=== PATIENT | male | born 1970 | race Caucasian/White ===

== ENCOUNTER → 2017-12-30 10:47 | Outpatient (CLI) | payer MEDICAID, SELFPAY ==
[2017-12-30 11:10] LABS: Hematocrit 44.5 % (40-54); Hemoglobin 14.2 g/dl (13.0-16.5); Mean Corp Hgb Conc 31.9 g/gl (32-36); Mean Corpuscular Hgb 32.1 pg (27.0-32.0); Mean Corpuscular Volume 100.7 fL (80-94); Mean Platelet Vol. 9.8 fl (6.2-12.0); Platelet Count 201 K/mm3 (150-450); RBC Distribution Width CV 13.9 % (11.6-14.6); RBC Distribution Width SD 51.8 fl (35.1-43.9); Red Blood Count 4.42 M/mm3 (4.6-6.2)
[2017-12-30 11:11] LABS: Scan Indicated on CBC? Y/N NO
[2017-12-30 11:47] LABS: ALB/GLOB Ratio 0.9 RATIO (0.9-2.4); AST(SGOT) 25 U/L (15-37); Alanine Aminotransfer ALT/SGPT 32 U/L (16-61); Albumin, Serum 3.6 g/dL (3.2-5.0); Alkaline Phosphatase 85 U/L (45-117); Anion Gap 4 (5-15); BUN 16 mg/dL (7-18); BUN/Creat Ratio 16.1 RATIO (10-20); Calcium,Total 9.1 mg/dL (8.5-10.1); Chloride 102 mmol/L (98-107); Creatinine, Serum 0.99 mg/dL (0.70-1.30); EST Glomerular Filtration Rate 86 mL/min (>60); Est Glom Filt Rate - Afr Amer 105 mL/min (>60); Globulin 4.1 g/dL (2.2-4.2); Glucose 38 mg/dL (74-106); Potassium 4.2 mmol/L (3.5-5.1); Protein, Total 7.7 g/dL (6.4-8.2); Sodium Level 133 mmol/L (136-145); Thyroid Stim Hormone (TSH) 2.18 uIU/mL (0.358-3.74)
== END ==
PROVIDERS: Visit Provider Psychiatry & Neurology Psychiatry
DX: Z79.899 Other long term (current) drug therapy (principal)
CPT/HCPCS: 36415; 80053; 80178; 84443; 85027

== ENCOUNTER 2018-01-16 13:25 | Emergency (ER) | payer MEDICAID, SELFPAY ==
[2018-01-16 13:26] VITALS: PULSE 95; RESP 18; TEMP 37.2; O2SAT 97; BMI 55.1
--- NOTE | 2018-01-16 13:52 | RAD_ITS ---
STUDY: X-RAY - LEFT ANKLE REASON FOR EXAM: Male, 47 years old. Lateral pain and swelling following a fall. TECHNIQUE: 3 view(s) of the ankle. COMPARISON: None. FINDINGS: Normal visualized distal tibia and fibula. Nondisplaced oblique fracture of the lateral malleolus. Normal tibiotalar articulation and ankle mortise. Normal visualized talus and calcaneus. The visualized subtalar, talonavicular, calcaneocuboid and tarsal articulations are normal. Lateral soft tissue swelling. RAD/Ankle min 3 Views IMPRESSION: Nondisplaced oblique fracture of the lateral malleolus with overlying soft tissue swelling. Electronically Signed: Ignacio Casas MD at 14:21 EST Tel [phone], Service support ,
[2018-01-16] MEDS: oxyCODONE 5 MG Tablet 10 MG PO (14:25)
--- NOTE | 2018-01-16 15:01 | ED.DCSUM_ITS ---
- ER Visit Summary Date of Service: 01/16/18 Chief Complaint: Ankle injury History of Present Illness: The patient is a 47 M who stepped in a hole on the sidewalk today injuring his left ankle. Patient notes pain medially and laterally. Denies any other injuries. Physical Examination: Afebrile vital signs are stable Gen: Well-nourished well-developed Head: Normocephalic atraumatic Eyes: Perrl EOMI ENT: TMs clear no rhinorrhea moist mucous membranes Neck: Supple no lymphadenopathy no JVD nontender CVS: Regular rate rhythm no murmurs normal S1-S2 Respiratory: No distress clear to auscultation bilaterally chest nontender Abdomen: Soft nontender nondistended normal bowel sounds no masses Back: Nontender Extremity: Patient has swelling medially and laterally over the malleoli. There is ecchymosis laterally. No fibular head tenderness. Neurovascular intact distally. Skin: Normal color no rash Neuro: alert orientated ?3 CN II-XII intact normal strength sensation reflexes gait cerebellar Psych: Normal affect normal mood Test Results: X-rays revealed a minimally displaced distal tibial fracture. There was slight disruption of the mortise medially. Emergency Department Course and Treatment: Patient received pain medication he was placed in a Ortho-Glass posterior and stirrup splint. He will be made nonweightbearing. He will follow-up with Dr. Atul Abraham from orthopedics is on no doc orthopedics today. Impression: 1. Distal fibular fracture-left closed 2. Splint by physician This note was generated with [employer] dictation software. It may contain incorrect words, spelling, and punctuation that were not noted in review of the chart prior to signing ED Disposition - Plan for ED Patient: Disposition: Home or Assisted Living Chief Complaint: Lower Extremity Injury Instructions: ED Fx Ankle General Prescriptions: Oxycodone [Oxyir] 5 - 10 mg PO Q6H PRN PRN 4 Days #20 tab PRN Reason: Pain Referrals: Care Physician,No Primary [Primary Care Provider] - Atul Abraham DO [STAFF PHYSICIAN] - (call today for follow up appointment)
[2018-01-16 15:27] VITALS: BP 120/92; PULSE 86; RESP 16; O2SAT 95
--- NOTE | 2018-01-16 15:28 | ED.RN ---
REVIEWED D/C INSTRUCTIONS, FOLLOW UP CARE, AND S/S THAT WOULD WARRANT A RETURN TO THE ED WITH PT. PT VERBALIZED AN UNDERSTANDING AND DENIES FURTHER QUESTIONS FOR THIS RN. PT SKIN P/W/D, RESP EVEN AND UNLABORED, PT A&O X 3, NO DISTRESS NOTED. PT AMBULATED OUT OF ED USING CRUTCHES.
== END 2018-01-16 15:29 | disposition home or self-care (01) ==
PROVIDERS: Emergency Provider Emergency Medicine
DX: S82.65XA Nondisplaced fracture of lateral malleolus of left fibula, initial encounter for closed fracture (principal); F32.9 Major depressive disorder, single episode, unspecified; Z72.0 Tobacco use; Z79.899 Other long term (current) drug therapy; W17.2XXA Fall into hole, initial encounter; Y93.01 Activity, walking, marching and hiking; Y92.480 Sidewalk as the place of occurrence of the external cause; Y99.8 Other external cause status
CPT/HCPCS: 29515; 73610; 99284

== ENCOUNTER 2018-01-23 13:10 | Day surgery (SDC) | payer MEDICAID, SELFPAY ==
--- NOTE | 2018-01-22 16:18 | EKG12_ITS ---
Test Reason : EMORY Blood Pressure : / mmHG Vent. Rate : 082 BPM Atrial Rate : 082 BPM P-R Int : 146 ms QRS Dur : 082 ms QT Int : 370 ms P-R-T Axes : 051 020 014 degrees QTc Int : 432 ms Normal sinus rhythm Nonspecific T wave abnormality Abnormal ECG Confirmed by MO DURANT, MALICK ([id number]), editorial assistant ANOOP LECHUGA ([id number]) on 01/27/2018 2:53:18 PM Referred By: Dayana Plunkett Confirmed By:MALICK HASSAN MD
[2018-01-22 17:19] LABS: Hematocrit 43.4 % (40-54); Hemoglobin 14.3 g/dl (13.0-16.5); Mean Corp Hgb Conc 32.9 g/gl (32-36); Mean Corpuscular Volume 100.2 fL (80-94); Mean Platelet Vol. 10.6 fl (6.2-12.0); Platelet Count 290 K/mm3 (150-450); RBC Distribution Width CV 13.9 % (11.6-14.6); RBC Distribution Width SD 51.2 fl (35.1-43.9); Red Blood Count 4.33 M/mm3 (4.6-6.2); White Blood Count 7.6 K/mm3 (4.4-11.0)
[2018-01-22 17:21] LABS: Scan Indicated on CBC? Y/N NO
[2018-01-23 13:56] VITALS: BP 104/75; PULSE 69; RESP 14; TEMP 37; O2SAT 95; BMI 26.8
--- NOTE | 2018-01-23 14:30 | RAD_ITS ---
STUDY: X-RAY - LEFT ANKLE REASON FOR EXAM: Male, 47 years old. ORIF LEFT ANKLE TECHNIQUE: 2 view(s) of the ankle. COMPARISON: 2. FINDINGS: There is a metal sideplate transfixing the distal fibula. There are cortical screws holding the plate in place. The visualized subtalar, talonavicular, calcaneocuboid and tarsal articulations are normal. There is overlying soft tissue air. Stabilization of the distal fibular fracture. The soft tissue structures are unremarkable. RAD/Ankle min 3 Views IMPRESSION: Successful left ankle ORIF. Electronically Signed: Pedro Harris MD at 16:52 EST , Service support ,
[2018-01-23] MEDS: Cefazolin 2 GM in 0.9% Normal Saline 100 ML IV (15:15)
--- NOTE | 2018-01-23 16:05 | PCM.IMDPSTOP ---
Immediate Post-Op Note Date of Procedure: 01/23/18 Primary Surgeon/Physician: Dayana Plunkett, sales person: none Post-Operative Diagnosis: Fibular fracture, left Surgery/Procedure Performed:: ORIF left ankle fracture Description of Surgical Findings:: Consistent with diagnosis Estimated Blood Loss: <10cc Specimen's removed: none Type of Anesthesia:: General
--- NOTE | 2018-01-23 16:08 | OP.PN_ITS ---
Immediate Post-Op Note Date of Procedure: 01/23/18 Primary Surgeon/Physician: Dayana Plunkett, aviation technician aircraft: none Post-Operative Diagnosis: Fibular fracture, left Surgery/Procedure Performed:: ORIF left ankle fracture Description of Surgical Findings:: Consistent with diagnosis Estimated Blood Loss: <10cc Specimen's removed: none Type of Anesthesia:: General
[2018-01-23 16:15] VITALS: BP 104/75; BP 125/99; PULSE 81; RESP 16; TEMP 36.2; O2SAT 96
[2018-01-23 16:30] VITALS: BP 104/75; BP 96/62; PULSE 66; RESP 16; O2SAT 95
[2018-01-23 16:45] VITALS: BP 100/54; BP 104/75; PULSE 88; RESP 18; TEMP 36.2; O2SAT 93
[2018-01-23 17:38] VITALS: BP 104/75
== END 2018-01-23 17:53 | disposition home or self-care (01) ==
LOC: SDC 13:16 → AC 13:16
PROVIDERS: Visit Provider Podiatrist Foot & Ankle Surgery
PROC: (CPT 27792; principal; 2018-01-23 14:10)
DX: S82.832A Other fracture of upper and lower end of left fibula, initial encounter for closed fracture (principal); K50.90 Crohn's disease, unspecified, without complications; G47.30 Sleep apnea, unspecified; K21.9 Gastro-esophageal reflux disease without esophagitis; F32.9 Major depressive disorder, single episode, unspecified; F41.9 Anxiety disorder, unspecified; F17.210 Nicotine dependence, cigarettes, uncomplicated; Z79.891 Long term (current) use of opiate analgesic; Z79.899 Other long term (current) drug therapy; W17.2XXA Fall into hole, initial encounter; Y93.01 Activity, walking, marching and hiking; Y92.480 Sidewalk as the place of occurrence of the external cause; Y99.8 Other external cause status
CPT/HCPCS: 27792; 36415; 73610; 76000; 85027; 93005; J3010; J7120; J2405

== ENCOUNTER 2018-11-09 21:34 | Emergency (ER) | payer MEDICAID, SELFPAY ==
[2018-11-09 21:37] VITALS: BP 123/74; PULSE 96; RESP 18; TEMP 36.6; O2SAT 98; BMI 25.6
[2018-11-09] MEDS: DiphenhydrAMINE 50 MG/ML Syringe 25 MG IV (22:29)
[2018-11-09] MEDS: 0.9% Normal Saline 1,000 ML 999 ML IV (22:29)
[2018-11-09] MEDS: Metoclopramide 10 MG/2 ML Vial IV (22:29)
[2018-11-09] MEDS: Ketorolac 30 MG/ML Syringe IV (22:29)
--- NOTE | 2018-11-09 22:45 | RAD_ITS ---
STUDY: X-RAY - LEFT ANKLE REASON FOR EXAM: Male, 48 years old. Unable to bear weight. Previous surgery. TECHNIQUE: 3 view(s) of the ankle. COMPARISON: 01/23/2018. FINDINGS: Compression plate and screws across the distal fibula, with no evidence for complication, and evidence for a healed previous fracture. No definite acute fracture or dislocation. Normal ankle mortise. RAD/Ankle min 3 Views IMPRESSION: No acute fracture/dislocation. Electronically Signed: Rod Younger MD at 23:04 EST , Service support ,
--- NOTE | 2018-11-09 23:04 | ED.VISSUMM ---
- ER Visit Summary Date of Service: 11/09/18 Chief Complaint: Headache and left ankle pain History of Present Illness: The patient is a 48 M with a migraine for the past 2 days. Has been taking aspirin without improvement. He does report light sensitivity. He denies injury patient does have a history of similar migraines. He is also complaining of left ankle pain. He had surgery in January for a fibular fracture. His ankle went out on him a couple days ago and now he has increased pain. Physical Examination: Vital signs unremarkable. Patient sitting upright in bed no acute distress. Head neck examination is unremarkable. Heart is regular rate and rhythm. Lung sounds are clear. Abdomen is soft nontender. Lower extremity examination reveals a healed incision on the lateral portion of the left ankle. He does have lateral edema and tenderness. Strong distal pulses are noted. Neuro exam reveals no focal deficits. Test Results: Left ankle x-rays reveal no acute fracture. Hardware is intact. Emergency Department Course and Treatment: Patient is given Toradol, Reglan, Benadryl, and IV fluids. On repeat evaluation patient is resting comfortable he. Headache is improving. He will be given an Aircast stirrup splint for his ankle. Treatment Plan: [] Disposition: Discharge Impression: 1. Migraine, improved 2. Left ankle sprain This note was generated with [employer] dictation software. It may contain incorrect words, spelling, and punctuation that were not noted in review of the chart prior to signing ED Disposition - Plan for ED Patient: Chief Complaint: Headache Referrals: Care Physician,No Primary [Primary Care Provider] -
--- NOTE | 2018-11-09 23:20 | ED.DEP ---
ED Disposition - Plan for ED Patient: Disposition: Home or Assisted Living Chief Complaint: Headache Instructions: ED Headache Migraine, ED Sprain Ankle W X Ray Referrals: Laurie Ribeiro DPM [STAFF PHYSICIAN] - As Needed
[2018-11-09 23:34] VITALS: BP 141/74; PULSE 89; RESP 18; O2SAT 98
--- NOTE | 2018-11-09 23:34 | ED.RN ---
THIS NURSE REVIEWED D/C INSTRUCTIONS WITH PT. PT VERBALIZED UNDERSTANDING OF INSTRUCTIONS. IV D/C. IV CATHETER INTACT. PT TOLERATED WELL. PT DENIES FURTHER NEEDS OR QUESTIONS AT THIS TIME.
--- OUTSIDE RECORDS SUMMARY | 2019-02-11 10:36 | XMS RPT_ITS ---
:1970 Author Organization OHIP Care Team Providers Name Role Phone Primay Care Physicia, No Primary Care Unavailable Alpa Mohr Attending Unavailable John, Aleyda Attending Unavailable Lopez, Aleyda Referring Unavailable Primay Care Physicia, No Primary Care Unavailable Primay Care Physicia, No Primary Care Unavailable Aleksandar Saba Attending Unavailable Cat, Dayana Attending Unavailable Cat, Dayana Referring Unavailable Primay Care Physicia, No Primary Care Unavailable Raymundo, Tim Attending Unavailable Kiarra, Dayana Referring Unavailable Melany Chavarria Attending Unavailable Melany Chavarria Referring Unavailable Primay Care Physicia, No Primary Care Unavailable PROBLEMS PROBLEMS DATE TYPE CONDITION / CODE ATTENDING STATUS SOURCE 02/20/2018 Unknown R94.31 - Abnormal Raymundo, [place] [facility] electrocardiogram Community [ECG] [EKG] / Hospital R94.31(ICD-10) Repository 01/16/2018 Unknown S82.899A - Other Aleksandar Saba Active [facility] fracture of Community unspecified lower leg, Hospital initial encounter for Repository closed fracture / S82.899A(ICD-10) PROCEDURES PROCEDURES No Procedure Records FoundRESULTS RESULTS EMERGENCY DEPARTMENT Observed: 11/10/2018 Status: F Source: [place] SUMMARY 12:31 AM [facility] REPOSITORY [facility] Medical Records Department [address] [place] [address] Emergency Department Summary 11/09/18 2304 MR#: [id number] Acct: [id number] Name: RUFINO SALAS Rep #: [id number] : 1970 48 From: Alpa Mohr MD PCP: Mamta Physician, No Primary Status: DEP ER - ER Visit Summary Date of Service: 11/09/18 Chief Complaint: Headache and left ankle pain History of Present Illness: The patient is a 48 M with a migraine for the past 2 days. Has been taking aspirin without improvement. He does report light sensitivity. He denies injury patient does have a history of similar migraines. He is also complaining of left ankle pain. He had surgery in January for a fibular fracture. His ankle went out on him a couple days ago and now he has increased pain. Physical Examination: Vital signs unremarkable. Patient sitting upright in bed no acute distress. Head neck examination is unremarkable. Heart is regular rate and rhythm. Lung sounds are clear. Abdomen is soft nontender. Lower extremity examination reveals a healed incision on the lateral portion of the left ankle. He does have lateral edema and tenderness. Strong distal pulses are noted. Neuro exam reveals no focal deficits. Test Results: Left ankle x-rays reveal no acute fracture. Hardware is intact. Emergency Department Course and Treatment: Patient is given Toradol, Reglan, Benadryl, and IV fluids. On repeat evaluation patient is resting comfortable he. Headache is improving. He will be given an Aircast stirrup splint for his ankle. Treatment Plan: [] Disposition: Discharge Impression: 1. Migraine, improved 2. Left ankle sprain This note was generated with [employer]ation software. It may contain incorrect words, spelling, and punctuation that were not noted in review of the chart prior to signing ED Disposition - Plan for ED Patient: Chief Complaint: Headache Referrals: Care Physician,No Primary [Primary Care Provider] - What to do if you have Problems For any increased pain, shortness of breath, bleeding, nausea or vomiting, chest pain, or any unexpected problems, contact your Primary Care Provider. Call [facility] ([phone]) or report to the closest Emergency Room. Call 911 if necessary. 11/10/18 0031 <Electronically signed by Alpa Mohr MD> Date Alpa Mohr MD Cosigner Signature (If Indicated): Date CC: No Primary Care Physician DISCHARGE INSTRUCTION Observed: 11/09/2018 Status: F Source: [place] 11:22 PM [facility] RE[facility] Medical Records Department [address] [place] [address] Discharge Instruction 11/09/182319 MR#: [id number] Acct: [id number] Name: RUFINO SALAS Rep #: [id number] : 1970 48 From: Alpa Mohr MD PCP: Care Physician, No Primary Status: REG ER ED Disposition - Plan for ED Patient: Disposition: Home or Assisted Living Chief Complaint: Headache Instructions: ED Headache Migraine, ED Sprain Ankle W X Ray Referrals: Laurie Ribeiro DPM [STAFF PHYSICIAN] - As Needed What to do if you have Problems For any increased pain, shortness of breath, bleeding, nausea or vomiting, chest pain, or any unexpected problems, contact your Primary Care Provider. Call [facility] ([phone]) or report to the closest Emergency Room. Call 911 if necessary. 11/09/182321 <Electronically signed by Alpa Mohr MD> Date Alpa Mohr MD Cosigner Signature (If Indicated): Date CC: No Primary Care Physician ANKLE MIN 3 VIEWS Observed: 11/09/2018 Status: F Source: [place] 9:53 PM [facility] RE[facility] Imaging Services [address] [place] [address] Ankle min 3 Views MR#: [id number] Acct: [id number] Name: RUFINO SALAS Rep #: [id number] : 1970 M 48 From: Rod Younger MD PCP: Care Physician, No Primary Status: REG ER Study: Ankle min 3 Views Date of Exam: 11/09/18 Exam# [id number] Ordering Dr: Alpa Mohr MD STUDY: X-RAY - LEFT ANKLE REASON FOR EXAM: Male, 48 years old. Unable to bear weight. Previous surgery. TECHNIQUE: 3 view(s) of the ankle. COMPARISON: 01/23/2018. FINDINGS: Compression plate and screws across the distal fibula, with no evidence for complication, and evidence for a healed previous fracture. No definite acute fracture or dislocation. Normal ankle mortise. RAD/Ankle min 3 Views IMPRESSION: No acute fracture/dislocation. Electronically Signed: Rod Younger MD at 23:04 EST , Service support , CC: No Primary Care Physician; Alpa Mohr MD Law Firm Receptionist: Signed LITHIUM Collected: 03/09/2018 Status: F Source: [place] 1:40 PM [facility] REPOSITORY Order Comment: Date of Last Dose: 03/09/18 Time of Last Dose: 0000 TYPE CODE TESTS RESULT OUT OF RANGE REFERENCE UNITS LAB L501.9060 0.60-1.20 mmol/L Low LI 0.30 Performed By: #### L501.9060 #### [facility] [address] [place], [address] 12 LEAD ELECTROCARDIOGRAM Observed: 01/27/2018 Status: F Source: [place] 2:53 PM [facility] REPOSITORY [facility] Cardiovascular Services [address] [place] [address] 12 Lead EKG 01/22/18 1625 MR#: [id number] Acct: [id number] Name: RUFINO SALAS Rep #: [id number] : 1970 47 From: Tim Fonseca MD Attending Dr: Dayana Cat DPM Status: DEP SDC Ordering Dr: Dayana Cat DPM Date: 01/22/18 Location: [facility] Sex: M C Admitted: Test Reason : CAT Blood Pressure : / mmHG Vent. Rate : 082 BPM Atrial Rate : 082 BPM P-R Int : 146 ms QRS Dur : 082 ms QT Int : 370 ms P-R-T Axes : 051 020 014 degrees QTc Int : 432 ms Normal sinus rhythm Nonspecific T wave abnormality Abnormal ECG Confirmed by TIM FONSECA MD ([id number]), television news video editor ANOOP LECHUGA ([id number]) on 01/27/2018 2:53:18 PM Referred By: Dayana Cat Confirmed By:TIM FONSECA MD 01/27/18 1453 Date Tim Fonseca MD CC: GIORGIO Cat; No Primary Care Physician Signed ANKLE MIN 3 VIEWS Observed: 01/23/2018 Status: F Source: [place] 1:23 AM [facility] REPOSITORY [facility] Imaging Services [address] [place] [address] Ankle min 3 Views MR#: [id number] Acct: [id number] Name: RUFINO SALAS Rep #: [id number] : 1970 M 47 From: Pedro Harris MD PCP: Care Physician, No Primary Status: [facility] Study: Ankle min 3 Views Date of Exam: 01/23/18 Exam# [id number] Ordering Dr: Dayana Cat DPM STUDY: X-RAY - LEFT ANKLE REASON FOR EXAM: Male, 47 years old. ORIF LEFT ANKLE TECHNIQUE: 2 view(s) of the ankle. COMPARISON: 01.16.18 FINDINGS: There is a metal sideplate transfixing the distal fibula. There are cortical screws holding the plate in place. The visualized subtalar, talonavicular, calcaneocuboid and tarsal articulations are normal. There is overlying soft tissue air. Stabilization of the distal fibular fracture. The soft tissue structures are unremarkable. RAD/Ankle min 3 Views IMPRESSION: Successful left ankle ORIF. Electronically Signed: Pedro Harris MD at 16:52 EST , Service support , CC: GIORGIO Cat; No Primary Care Physician Law Firm Receptionist: Signed CBC-COMPLETE BLOOD CNT Collected: 01/22/2018 Status: F Source: [place] NO DIFF 4:09 PM [facility] REPOSITORY TYPE CODE TESTS RESULT OUT OF RANGE REFERENCE UNITS LAB L100.1000 4.4-11.0 K/mm3 Normal WBC 7.6 LAB L100.1200 4.6-6.2 M/mm3 Low RBC 4.33 LAB L100.1300 13.0-16.5 g/dl Normal HGB 14.3 LAB L100.1400 40-54 % Normal HCT 43.4 LAB L100.1500 80-94 fL High MCV 100.2 LAB L100.1600 27.0-32.0 pg High MCH 33.0 LAB L100.1700 32-36 g/gl Normal MCHC 32.9 LAB L100.1810 11.6-14.6 % Normal RDW CV 13.9 LAB L100.1820 35.1-43.9 fl High RDW SD 51.2 LAB L100.1900 150-450 K/mm3 Normal PLT 290 LAB L100.2000 6.2-12.0 fl Normal MPV 10.6 Performed By: #### L100.0500 #### [facility] [address] [place], [address] EMERGENCY DEPARTMENT Observed: 01/18/2018 Status: F Source: [place] SUMMARY 7:59 AM [facility] RE[facility] Medical Records Department [address] [place] [address] Emergency Department Summary 01/16/18 1457 MR#: [id number] Acct: [id number] Name: RUFINO SALAS Rep #: [id number] : 1970 47 From: Aleksandar Saba DO PCP: Care Physician, No Primary Status: DEP ER - ER Visit Summary Date of Service: 01/16/18 Chief Complaint: Ankle injury History of Present Illness: The patient is a 47 M who stepped in a hole on the sidewalk today injuring his left ankle. Patient notes pain medially and laterally. Denies any other injuries. Physical Examination: Afebrile vital signs are stable Gen: Well-nourished well-developed Head: Normocephalic atraumatic Eyes: Perrl EOMI ENT: TMs clear no rhinorrhea moist mucous membranes Neck: Supple no lymphadenopathy no JVD nontender CVS: Regular rate rhythm no murmurs normal S1-S2 Respiratory: No distress clear to auscultation bilaterally chest nontender Abdomen: Soft nontender nondistended normal bowel sounds no masses Back: Nontender Extremity: Patient has swelling medially and laterally over the malleoli. There is ecchymosis laterally. No fibular head tenderness. Neurovascular intact distally. Skin: Normal color no rash Neuro: alert orientated 3 CN II-XII intact normal strength sensation reflexes gait cerebellar Psych: Normal affect normal mood Test Results: X-rays revealed a minimally displaced distal tibial fracture. There was slight disruption of the mortise medially. Emergency Department Course and Treatment: Patient received pain medication he was placed in a Ortho-Glass posterior and stirrup splint. He will be made nonweightbearing. He will follow-up with Dr. Atul Abraham from orthopedics is on no doc orthopedics today. Impression: 1. Distal fibular fracture-left closed 2. Splint by physician This note was generated with [employer] dictation software. It may contain incorrect words, spelling, and punctuation that were not noted in review of the chart prior to signing ED Disposition - Plan for ED Patient: Disposition: Home or Assisted Living Chief Complaint: Lower Extremity Injury Instructions: ED Fx Ankle General Prescriptions: Oxycodone [Oxyir] 5 - 10 mg PO Q6H PRN PRN 4 Days #20 tab PRN Reason: Pain Referrals: Care Physician,No Primary [Primary Care Provider] - Atul Abraham DO [STAFF PHYSICIAN] - (call today for follow up appointment) What to do if you have Problems For any increased pain, shortness of breath, bleeding, nausea or vomiting, chest pain, or any unexpected problems, contact your Primary Care Provider. Call [facility] ([phone]) or report to the closest Emergency Room. Call 911 if necessary. 01/18/18 0759 <Electronically signed by Aleksandar Saba DO> Date Aleksandar Saba DO Cosigner Signature (If Indicated): Date CC: No Primary Care Physician ANKLE MIN 3 VIEWS Observed: 01/16/2018 Status: F Source: [place] 1:52 PM [facility] Imaging Services [address] [place] [address] Ankle min 3 Views MR#: [id number] Acct: [id number] Name: RUFINO SALAS Rep #: [id number] : 1970 M 47 From: Ignacio Casas MD PCP: Care Physician, No Primary Status: REG ER Study: Ankle min 3 Views Date of Exam: 01/16/18 Exam# [id number] Ordering Dr: Oscar, Ed P. STUDY: X-RAY - LEFT ANKLE REASON FOR EXAM: Male, 47 years old. Lateral pain and swelling following a fall. TECHNIQUE: 3 view(s) of the ankle. COMPARISON: None. FINDINGS: Normal visualized distal tibia and fibula. Nondisplaced oblique fracture of the lateral malleolus. Normal tibiotalar articulation and ankle mortise. Normal visualized talus and calcaneus. The visualized subtalar, talonavicular, calcaneocuboid and tarsal articulations are normal. Lateral soft tissue swelling. RAD/Ankle min 3 Views IMPRESSION: Nondisplaced oblique fracture of the lateral malleolus with overlying soft tissue swelling. Electronically Signed: Ignacio Casas MD at 14:21 EST Tel [phone], Service support , CC: No Primary Care Physician; ED PHYSICIAN PROVIDER Law Firm Receptionist: Signed CBC-COMPLETE BLOOD CNT Collected: 12/30/2017 Status: F Source: [place] NO DIFF 10:55 AM [facility] REPOSITORY TYPE CODE TESTS RESULT OUT OF RANGE REFERENCE UNITS LAB L100.1000 4.4-11.0 K/mm3 High WBC 14.0 LAB L100.1200 4.6-6.2 M/mm3 Low RBC 4.42 LAB L100.1300 13.0-16.5 g/dl Normal HGB 14.2 LAB L100.1400 40-54 % Normal HCT 44.5 LAB L100.1500 80-94 fL High MCV 100.7 LAB L100.1600 27.0-32.0 pg High MCH 32.1 LAB L100.1700 32-36 g/gl Low MCHC 31.9 LAB L100.1810 11.6-14.6 % Normal RDW CV 13.9 LAB L100.1820 35.1-43.9 fl High RDW SD 51.8 LAB L100.1900 150-450 K/mm3 Normal PLT 201 LAB L100.2000 6.2-12.0 fl Normal MPV 9.8 Performed By: #### L100.0500 #### [facility] [place], [address] COMPREHENSIVE METABOLIC Collected: 12/30/2017 Status: F Source: [place] 10:55 AM [facility] REPOSITORY TYPE CODE TESTS RESULT OUT OF RANGE REFERENCE UNITS LAB L501.0100 74-106 mg/dL Low alert GLU 38 Result Comment: Glucose result less than 50 mg/dL suggests HYPOGLYCEMIA. LAB L501.1000 7-18 mg/dL Normal BUN 16 LAB L501.1100 0.70-1.30 mg/dL Normal CREAT,SERUM 0.99 Result Comment: The validity of the calculated GFR AND GFRAA in patients over 70 years has not been determined. Clinical correlation is essential. LAB L501.1110 >60 mL/min Normal EST GFR 86 Result Comment: Non- GFR Calc LAB L501.1115 >60 mL/min Normal EST GFR - AA 105 Result Comment: GFR Calc LAB L501.1300 10-20 RATIO Normal BUN/CRE 16.1 LAB L501.1500 6.4-8.2 g/dL T Normal PROT 7.7 LAB L501.1800 3.2-5.0 g/dL Normal ALB 3.6 LAB L501.1950 2.2-4.2 g/dL Normal GLOB 4.1 LAB L501.2000 0.9-2.4 RATIO Normal A/G 0.9 LAB L501.2200 8.5-10.1 mg/dL CA Normal 9.1 LAB L501.4100 15-37 U/L Normal AST 25 LAB L501.4305 45-117 U/L Normal ALK P 85 LAB L501.4405 16-61 U/L Normal ALT 32 Result Comment: Please note revised ALT reference range effective 2017. LAB L501.4600 0.20-1.00 mg/dL Normal T BILI 0.40 LAB L501.5300 136-145 mmol/L Low NA 133 LAB L501.5600 3.5-5.1 mmol/L Normal K 4.2 LAB L501.5900 98-107 mmol/L Normal CL 102 LAB L501.6100 21.0-32.0 mmol/L Normal CO2 27.0 LAB L501.6200 5-15 Low GAP 4 Performed By: #### L500.4050, L501.9520 #### [facility] [address] [place], [address] THYROID STIM HORMONE Collected: 12/30/2017 Status: F Source: [place] (TSH) 10:55 AM [facility] REPOSITORY TYPE CODE TESTS RESULT OUT OF RANGE REFERENCE UNITS LAB L501.9520 0.358-3.74 uIU/mL Normal TSH 2.18 Performed By: #### L500.4050, L501.9520 #### [facility] [address] [place], [address] LITHIUM Collected: 12/30/2017 Status: F Source: [place] 10:55 AM [facility] REPOSITORY Order Comment: Date of Last Dose: 12/30/17 Time of Last Dose: 0800 TYPE CODE TESTS RESULT OUT OF RANGE REFERENCE UNITS LAB L501.9060 0.60-1.20 mmol/L High alert LI 2.00 Performed By: #### L501.9060 #### [facility] [address] [facility] [place], [address] ALLERGIES ALLERGIES DATE TYPE / CODE NAME / CODE REACTION SEVERITY SOURCE 11/09/2018 Drug zolpidem NOSE BLEED Unknown [facility] Allergy/416 tartrate/Y63841 Hospital 456620(SNOM 4147(RXNORM) Repository ED CT) 11/09/2018 Drug ibuprofen/F0060 Upset Stomach Unknown [facility] Allergy/416 20841(RXNORM) Hospital 003384(SNOM Repository ED CT) ENCOUNTERS ENCOUNTERS ADMIT/DISCHARGE ACCOUNT ADMITTING ENCOUNTER LOCATION SOURCE NUMBER CLASS 11/09/2018/ [id number] Emergency [place] [address] [place] ing:ED Repository 03/09/2018 [id number] Ambulatory [place] [address] [place] ing:LABSPEC Repository 01/23/2018/ [id number] Ambulatory [place] [facility] [address] [place] ing:SDC Repository 01/22/2018 [id number] Ambulatory BMSBuilding:W [facility] Repository 01/16/2018/ [id number] Emergency [place] [facility] [address] [place] ing:ED Repository 12/30/2017 [id number] Ambulatory [place] [address] [place] ing:LAB Repository PAYERS PAYERS ENCOUNTER GUARANTOR PAYER SUBSCRIBER SOURCE 11/09/2018 Rufino S Primary Rufino De La Cruz [place] [id number] Insurance:MOLINAPolic FacemireDOB: Community [place]: [id number] [id number] Repository [address]Dhu: (330) Date:4953-10-13BV [phone] () [address] [place] [address]RL: 11/09/2018 Secondary NOT GIVENUNK [place] Insurance:SELF PAY [facility] Number: Effective Repository Date:2018-11-09 03/09/2018 Rufino S Primary NOT GIVENUNK [place] [id number] Insurance:SELF PAY [place] Number: Effective Repository [phone]: (330) Date:2018-03-09 [phone] () 01/23/2018 Rufino S Primary Rufino S [place] [id number] Insurance:MOLINAPolic FacemireDOB: Community [place] Number: [id number], [place] [id number] Repository [address]Tko: ([phone]) Date:0332-57-42GW [phone] () [address] [place] [address] 401[address]EM: 01/23/2018 Secondary NOT GIVENUNK [place] Insurance:SELF PAY [facility] Number: Effective Repository Date:2018-01-21 01/22/2018 Rufino S Primary Rufino S [place] [id number] Insurance:MOLINAPolic FacemireDOB: [facility] [place] y Number: [id number], [place] [id number] Repository [address]Ojr: (330) Date:4527-59-69OZ [phone] () [address] [place] [address]SM: 01/22/2018 Secondary NOT GIVENUNK [place] Insurance:SELF PAY [facility] Number: Effective Repository Date:2018-01-22 01/16/2018 Rufino S Primary Rufino Villasenoroster [id number] Insurance:MOLINAPolic FacemireDOB: Community [place] Number: [id number], [place] [id number] Repository [address]Kdg: (330) Date:6125-57-26GM [phone] () [address] [place] [address] 30218XF: 01/16/2018 Secondary NOT GIVENUNK [place] Insurance:SELF PAY [facility] Number: Effective Repository Date:2018-01-16 12/30/2017 Rufino S Primary Rufino De La Cruz [place] [id number] Insurance:MOLINAPolic FacemireDOB: Community [place] Number: [id number], [place] [id number] Repository [address]Kto: Date:7358-93-13CG [phone]~[address] [place] [address] -2 () [phone]: 12/30/2017 Secondary NOT GIVENUNK [place] Insurance:SELF PAY [facility] Number: Effective Repository Date:2017-12-30
== END 2018-11-09 23:35 | disposition home or self-care (01) ==
PROVIDERS: Emergency Provider Emergency Medicine
DX: G43.909 Migraine, unspecified, not intractable, without status migrainosus (principal); S93.402A Sprain of unspecified ligament of left ankle, initial encounter; Z72.0 Tobacco use; Z79.899 Other long term (current) drug therapy; X58.XXXA Exposure to other specified factors, initial encounter; Y93.89 Activity, other specified; Y92.89 Other specified places as the place of occurrence of the external cause; Y99.8 Other external cause status
CPT/HCPCS: 73610; 96361; 96374; 96375; 99284; J7030; A4216

== ENCOUNTER 2019-03-11 15:04 | Emergency (ER) | payer MEDICAID, SELFPAY ==
[2019-03-11 15:05] VITALS: BP 131/89; PULSE 120; RESP 16; TEMP 37.1; O2SAT 97; BMI 23.3
--- NOTE | 2019-03-11 15:13 | ED.RN ---
pt arrives to ed stating i need to speak to the dr. when asked what he was here for he again stated the same. i informed the patient that i was the rn clinician and would need more information to get him the help he required. door to triage room was closed then for privacy. pt was behaving manic. (pacing, irritable, and sweaty) pt was asked about where the wounds came from. he stated that the place he lives may have bed bugs. pt denied using any illegal substances. rn and hro were notified. rajesh abraham rn [id number]
--- NOTE | 2019-03-11 15:25 | ED.VISSUMM ---
- ER Visit Summary Date of Service: 03/11/19 Chief Complaint: Laceration History of Present Illness: The patient is a 48 M with a laceration to his right thumb. This is over the proximal phalanx. Dorsal surface. He cut it on metal just prior to arrival. Last tetanus immunization was about a year ago. No other injuries. The patient does complain of some itching bites to his arms and scalp. He said he itches intensely. He is staying at a new place and has bedbugs. Denies fevers or systemic symptoms. Physical Examination: Patient has multiple excoriations and abrasions over his scalp and upper extremities. He has a 2 cm partial-thickness laceration to the proximal phalanx of his right thumb. Extension and flexion intact. No laxity or deformity. Good range of motion. Neurovascular intact distally. No involvement of the joint. Test Results: None performed Emergency Department Course and Treatment: Patient treated with Benadryl. Digital block performed. Wound was irrigated copiously. No foreign bodies. Closed with simple interrupted sutures. Wound care instructions given. Prescription for Benadryl. Follow-up with primary care for suture removal. Return right away for any complications or signs of infection. Treatment Plan: As above Disposition: Discharge Impression: 1. Laceration to right thumb, simple, 2 cm 2. Bedbugs This note was generated with [employer] dictation software. It may contain incorrect words, spelling, and punctuation that were not noted in review of the chart prior to signing ED Disposition - Plan for ED Patient: Referrals: Care Physician,No Primary [Primary Care Provider] -
--- NOTE | 2019-03-11 15:29 | ED.DEP ---
ED Disposition - Plan for ED Patient: Instructions: ED Laceration All Prescriptions: Diphenhydramine HCl 25 mg PO TID #20 cap Referrals: Xenia Johnson [NON-STAFF] -
[2019-03-11] MEDS: DiphenhydrAMINE 25 MG Capsule PO (15:36)
== END 2019-03-11 15:58 | disposition home or self-care (01) ==
LOC: ED 15:50
PROVIDERS: Emergency Provider Emergency Medicine
DX: S61.011A Laceration without foreign body of right thumb without damage to nail, initial encounter (principal); Z72.0 Tobacco use; W26.8XXA Contact with other sharp object(s), not elsewhere classified, initial encounter; Y93.89 Activity, other specified; Y92.89 Other specified places as the place of occurrence of the external cause; Y99.8 Other external cause status
CPT/HCPCS: 12001; 99283

== ENCOUNTER 2019-03-28 21:46 | Emergency (ER) | payer MEDICAID, SELFPAY ==
[2019-03-28 21:48] VITALS: BP 123/84; PULSE 91; RESP 15; TEMP 36.7; BMI 26.6
[2019-03-28 22:00] VITALS: RESP 16
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
[2019-03-28] MEDS: fentaNYL 100 MCG/2 ML Ampul 50 MCG IV (22:13)
[2019-03-28 23:01] VITALS: BP 128/86; PULSE 73; RESP 16; O2SAT 98
== END 2019-03-28 23:07 | disposition home or self-care (01) ==
PROVIDERS: Emergency Provider Emergency Medicine
DX: S06.0X1A Concussion with loss of consciousness of 30 minutes or less, initial encounter (principal); S40.011A Contusion of right shoulder, initial encounter; F17.200 Nicotine dependence, unspecified, uncomplicated; V18.0XXA Pedal cycle driver injured in noncollision transport accident in nontraffic accident, initial encounter; Y93.55 Activity, bike riding; Y92.89 Other specified places as the place of occurrence of the external cause; Y99.8 Other external cause status
CPT/HCPCS: 70450; 72125; 73030; 96374; 99283

== ENCOUNTER 2019-06-09 20:08 | Emergency (ER) | payer MEDICAID, SELFPAY ==
[2019-06-09 20:09] VITALS: BP 130/92; PULSE 110; RESP 17; TEMP 36; O2SAT 97; BMI 22.7
--- NOTE | 2019-06-09 20:30 | RAD_ITS ---
STUDY: X-RAY - RIGHT WRIST REASON FOR EXAM: Male, 48 years old. Pain TECHNIQUE: 3 view(s) of the wrist were obtained. COMPARISON: None. FINDINGS: There is no evidence of fracture or dislocation. There are no significant degenerative changes. There are no radiodense foreign bodies. RAD/Wrist min 3 Views IMPRESSION: No fracture or dislocation. Electronically Signed: Juan Alberto Arroyo, at 21:18 EDT Tel , Service support ,
--- NOTE | 2019-06-09 20:30 | RAD_ITS ---
STUDY: X-RAY - RIGHT SHOULDER REASON FOR EXAM: Male, 48 years old. Pain TECHNIQUE: 4 view(s) of the shoulder. COMPARISON: X-ray right shoulder March 28, 2019 FINDINGS: There is no evidence of fracture or dislocation. There are no significant degenerative changes. There are no radiodense foreign bodies. There is mild soft tissue swelling over the AC joint. RAD/Shoulder min 2 Views IMPRESSION: No fracture or dislocation. Mild soft tissue swelling over the AC joint. Electronically Signed: Juan Alberto Arroyo, at 21:22 EDT Tel , Service support ,
--- NOTE | 2019-06-09 20:55 | RAD_ITS ---
STUDY: X-RAY - LEFT ANKLE REASON FOR EXAM: Male, 48 years old. Pain TECHNIQUE: 3 view(s) of the ankle. COMPARISON: None. FINDINGS: There is no evidence of fracture or dislocation. Internal fixation of the distal fibula is present. There is no evidence of complication. There are no significant degenerative changes. There are no radiodense foreign bodies. RAD/Ankle min 3 Views IMPRESSION: No fracture or dislocation. Electronically Signed: Juan Alberto Arroyo, at 21:20 EDT Tel , Service support ,
[2019-06-09] MEDS: HYDROcodone Bitartrate/Apap 5/325 Tablet PO (20:56)
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
--- NOTE | 2019-06-09 22:04 | ED.DEP ---
ED Disposition - Plan for ED Patient: Instructions: Treating?Strains and Sprains Referrals: Xenia Johnson [NON-STAFF] -
[2019-06-09 23:01] VITALS: BP 122/62; PULSE 89; RESP 18; O2SAT 98
== END 2019-06-09 23:02 | disposition home or self-care (01) ==
LOC: ED 20:55
PROVIDERS: Emergency Provider Emergency Medicine
DX: S40.011A Contusion of right shoulder, initial encounter (principal); S63.501A Unspecified sprain of right wrist, initial encounter; S93.402A Sprain of unspecified ligament of left ankle, initial encounter; V18.0XXA Pedal cycle driver injured in noncollision transport accident in nontraffic accident, initial encounter; Y93.55 Activity, bike riding; Y92.89 Other specified places as the place of occurrence of the external cause; Y99.8 Other external cause status
CPT/HCPCS: 73030; 73110; 73610; 99284

== ENCOUNTER 2020-11-13 12:06 | Emergency (ER) | payer MEDICAID, SELFPAY ==
[2020-11-13] VITALS (10 sets, daily range): BP systolic 117–137; BP diastolic 83–107; PULSE 71–93; RESP 16–18; TEMP 36.7–36.8; O2SAT 97–100; BMI 22.9
[2020-11-13 12:36] LABS: Absolute Lymphocyte Count 2.69 X10^3/uL (0.83-4.51); Basophil# 0.13 X10^3/uL; Basophil% 1.7 % (0-1); Eosinophil# 0.27 X10^3/uL; Eosinophils% 3.4 % (0-5); Hematocrit 48.1 % (40-54); Hemoglobin 15.3 g/dL (13.0-16.5); Lymphocyte # 2.69 X10^3/ul (4.0); Lymphocyte % 34.2 % (19-41); Mean Corp Hgb Conc 31.8 g/dL (32-36); Mean Corpuscular Hgb 31.2 pg (27.0-32.0); Mean Corpuscular Volume 98.2 fL (80-94); Mean Platelet Vol. 9.7 fl (6.2-12.0); Monocyte# 0.57 X10^3/uL; Monocyte% 7.3 % (0-10); NRBC Flagged by Analyzer 0 % (0-5); Neutrophil # 4.04 X10^3/uL (2.7-7.7); Neutrophil % 51.4 % (47-70); Platelet Count 249 K/mm3 (150-450); RBC Distribution Width CV 14.8 % (11.6-14.6); White Blood Count 7.9 K/mm3 (4.4-11.0)
[2020-11-13 12:58] LABS: ALB/GLOB Ratio 1.1 RATIO (0.9-2.4); AST(SGOT) 18 U/L (15-37); Alanine Aminotransfer ALT/SGPT 30 U/L (16-61); Albumin, Serum 3.9 g/dL (3.2-5.0); Alkaline Phosphatase 90 U/L (45-117); Anion Gap 6 (5-15); BUN 18 mg/dL (7-18); BUN/Creat Ratio 19.2 RATIO (10-20); Calcium,Total 8.9 mg/dL (8.5-10.1); Chloride 103 mmol/L (98-107); Creatinine, Serum 0.94 mg/dL (0.70-1.30); EST Glomerular Filtration Rate 91 mL/min (>60); Est Glom Filt Rate - Afr Amer 111 mL/min (>60); Globulin 3.7 g/dL (2.2-4.2); Glucose 103 mg/dL (74-106); Potassium 3.8 mmol/L (3.5-5.1); Protein, Total 7.6 g/dL (6.4-8.2); Sodium Level 138 mmol/L (136-145)
--- NOTE | 2020-11-13 13:06 | CM.ED ---
SOCIAL WORK Collaboration with Dr. Huff and Crisis. Patient is self-pay from the [employer]. Patient reports suicidal ideation, denies plan or intent. construction ironworker helper, Kelly spoke with patient. Patient reports suicidal ideation and stated wants placement. Patient became agitated and would not discuss safety plan with outpatient follow up. Awaiting medical clearance at this time. Crisis to follow for disposition. Staff updated on the above. Plan: Crisis once medically cleared. Ginna Trevino MSW, POLYMERIZATION SUPERVISOR
[2020-11-13 13:07] LABS: Alcohol, Blood (Medical)-Serum < 3.0 mg/dL
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
[2020-11-13 14:02] LABS: Amphetamine Urine VISTA POSITIVE (<1000 ng/mL); Barbiturate Urine VISTA NEGATIVE (< 200 ng/mL); Benzodiazepine Urine VISTA NEGATIVE (< 200 ng/mL); Cocaine Urine VISTA NEGATIVE (< 300 ng/mL); Ecstacy Urine VISTA NEGATIVE (< 500 ng/mL); Methadone Urine VISTA NEGATIVE (< 300 ng/mL); PCP Urine VISTA NEGATIVE (< 25 ng/mL); THC Urine VISTA POSITIVE (< 50 ng/mL); Vista UDS pH Range 6
--- NOTE | 2020-11-13 14:18 | CM.ED ---
SOCIAL WORK Clinical information faxed to Crisis. Ginna Trevino, ELECTROPHYSIOLOGY TECH, MEDICAL LEADER
--- NOTE | 2020-11-13 15:02 | CM.ED ---
SOCIAL WORK Kelly from Crisis speaking with patient at this time. Ginna Trevino, CLINICAL DOCUMENTATION MANAGER, REGIONAL WILDLIFE AGENT
--- NOTE | 2020-11-13 17:10 | CM.ED ---
SOCIAL WORK Call to Kelly with Crisis for update. Per Maggy Mendoza reviewing case as Crisis to do one time contract due to self-pay status. [facility] needing copy of EKG. EKG faxed at this time. Awaiting acceptance. Ginna Trevino, WATERPROOF MATERIAL FOLDER, HYDROTHERAPIST
--- NOTE | 2020-11-13 17:44 | CM.ED ---
SOCIAL WORK Call from [facility] with Crisis. Patient accepted to [facility] by Dr. Marshall. Nurse to call report to [phone]. Per Kelly, [facility]gy Vazquez requesting patient arrive after 8pm. [facility] attempted to set up transport through [facility] for 8pm car pick up driver. [facility] requested call back around 7:30p to schedule. Staff updated. Plan: Maggy Trevino, MERCHANDISE APPRAISER, STATE WILDLIFE OFFICER
--- NOTE | 2020-11-13 20:42 | CM.ED ---
SOCIAL WORK Attempted to contact Crisis x2 to discuss transport. Messages left. Awaiting call back. Ginna Trevino, PEDIATRIC CNS, BAKER BISCUIT
--- NOTE | 2020-11-13 20:48 | CM.ED ---
SOCIAL WORK Call from [facility] with Crisis. [facility] to arrive within 30 minutes to transport patient to [facility]. Staff michel. Ginna Trevino, HAND UPPER AND BOTTOM LACER, PIG FARM MANAGER
== END 2020-11-13 21:42 ==
LOC: ED 12:49
PROVIDERS: Emergency Provider Emergency Medicine
DX: R45.851 Suicidal ideations (principal); F32.9 Major depressive disorder, single episode, unspecified; Z72.0 Tobacco use
CPT/HCPCS: 80053; 80307; 80320; 85025; 87426; 93005; 99285; G0480

== ENCOUNTER → 2021-05-30 11:04 | Outpatient (CLI) | payer MEDICAID, SELFPAY ==
[2021-05-30 10:48] VITALS: BMI 22.2
[2021-05-30 12:25] LABS: Erythrocyte Sedimentation Rate 11 mm/hr (0-20)
[2021-05-30 12:34] LABS: CRP < 2.90 mg/L (0.0-3.0); Rheumatoid Factor < 10.0 IU/mL (<15)
[2021-05-31 14:25] LABS: ANTINUCLEAR ANTIBODIES DIRECT Negative (Negative)
[2021-06-06 08:09] LABS: Testosterone, % Free 2.75 % (1.50-4.20); Testosterone, Free 10.53 ng/dL (5.00-21.00)
[2021-06-06 15:08] LABS: HLA B27 Negative (.); Testosterone, Total 383 ng/dL (264-916)
== END ==
PROVIDERS: PCP Internal Medicine; Referring Provider Internal Medicine; Visit Provider Internal Medicine
DX: M19.90 Unspecified osteoarthritis, unspecified site (principal)
CPT/HCPCS: 36415; 81374; 84402; 84403; 85652; 86038; 86140; 86225; 86235; 86431

== ENCOUNTER → 2021-08-30 15:33 | Outpatient (CLI) | payer MEDICAID, SELFPAY ==
--- NOTE | 2021-08-30 15:34 | RAD_ITS ---
HISTORY: chronic neck pain. TECHNIQUE: XR Spine Cervical 4 or 5 Views. # of images incl. paperwork: 5. COMPARISON: CT 03/28/2019. FINDINGS: VERTEBRAE: No acute fracture identified. ALIGNMENT: No significant anterior or posterior subluxation.Preservation of the cervical lordosis. INTERVERTEBRAL DISCS: Minimal intervertebral disc space narrowing of C4-5. Mild foraminal narrowing at C4-5 bilaterally. SOFT TISSUES: No prevertebral soft tissue thickening. RAD/Cerv Spine 4 or 5 Views IMPRESSION: No acute fracture or dislocation identified in the cervical spine. Mild degenerative change of C4-5. at 1700 Reported and signed by: Viri Valdez MD Electronically Signed: Viri Valdez MD at 16:59 EDT Tel , Service support ,
--- NOTE | 2021-08-30 15:34 | RAD_ITS ---
INDICATION: chronic back pain EXAMINATION/TECHNIQUE: X-RAY - XR Spine Lumbar 2 or 3 Views COMPARISON: None. FINDINGS: Straightening of the normal alignment of the columns of the lumbar spine is visualized. No evidence of spondylolisthesis is seen. Multilevel degenerative endplate changes are seen, no evidence of compression deformity of the lumbar vertebral bodies. Slightly decreased intervertebral disc height visualized most prominent at L2-L3 and L1-L2. No evidence of lytic or sclerotic bone lesion is seen. Scattered stool visualized in the large bowel, no evidence of soft tissue mass is seen. RAD/Lumbar Spine 2 or 3 Views IMPRESSION: Degenerative changes of the lumbar spine, no acute abnormality is seen. Electronically Signed: Janak Turner MD at 8:01 EDT Tel , Service support ,
== END ==
PROVIDERS: PCP Internal Medicine; Referring Provider Nurse Practitioner Family; Visit Provider Nurse Practitioner Family
DX: M54.12 Radiculopathy, cervical region (principal); G89.29 Other chronic pain; M54.2 Cervicalgia; M54.50 Low back pain, unspecified
CPT/HCPCS: 72050; 72100

== ENCOUNTER 2021-09-12 16:30 | Outpatient (RCR) | payer MEDICAID, SELFPAY ==
[2021-07-03 15:46] VITALS: BMI 22.2
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
--- NOTE | 2021-09-12 16:48 | HP.PTREVAL_ITS ---
Rolo Vazquez, CANVAS CUTTER-C, It has been my pleasure to treat KASSIDY SALAS over the last 5 visits for c- spine Radic, Dorsalgia, cervicalgia, chronic pain. Please see the progress note below for an update on the physical therapy plan of care! Subjective: He reports that he forgets his exercises sometimes. Pt reports that he still has back pain and when standing still he has back pain. Pt goes to see the Dr on Friday or Friday and wants to see what the Dr says. He reports that he wants us to put his chart on hold until he talks to the Dr. He has pain into his R shoulder. Objective/Function: + SLR on the L for pain. LE MMT: B hip flex 4/5, B knee flex 4/5, B knee ext 4/5, B hip abd 4/5, B hip ext 4/5. Pt is able to walk on heels and toes without signs of weakness. Trunk AROM: flex 100%, ext 75%, Rot B 75%, Sb B 75%. UE MMT: B flex 4/5, B abd 4-/5, R IR 4-/5 and L 4/5, B ER 4- /5. R IR increase pain with MMT. Stairs: up and down the stairs recip with no hand rails. Plan Plan: Hold chart per Pt request until after he sees his Dr who has run multiple test for carpal tunnel etc. Balance/Gait/Functional tests - Balance/Special Test Scores Oswestry Neck Score: 37 Goals Goal 1:: I HEP Goal Time Frame: 4-6 Weeks Goal Progress: Goal Met Goal 2:: Decrease pain to 4/10 neck, back, arms and LE's. Goal Time Frame: 4-6 Weeks Goal Progress: Progressing Goal 3:: Increase B UE/LE strength by 1/2 muscle grade (at time of the eval: UE MMT: Flexion 4/5 B, abd 4-/5 B, ER 4/5, Bicep 4-/5 and LE MMT: B hip flex 4/5, B knee ext 4-/5, B knee flex 4-/5, B hip abd 4-/5, Bridge 3/4 normal ROM). Goal Time Frame: 4-6 Weeks Goal Progress: Progressing Goal 4:: Stairs: be able to go up and down the steps recip with 1 hand rail with a smooth gait pattern Goal Time Frame: 4-6 Weeks Goal Progress: Goal Met Anticipated Interventions Patient/Client Instruction: Educate patient on: Condition, Plan of Care For the Purpose of:: To decrease pain, To increase ROM, To improve nutrient delivery to tissue, To improve muscle performance and motor function, To improve ability to perform ADL's, To increase tolerance to activity/condition/position, To improve performance and independence with ADL's, To decrease level of supervision to perform tasks, To improve ability of physical actions for home/community/work/leisure, To improve gait and locomotor functions, To improve health of tissue, To decrease soft tissue restriction, To increase flexibilit y/ROM, To improve endurance, To improve balance, To improve safety with gait Therapeutic Exercise to Include: Strength training, Postural training, Flexibilty training, Gait and locomotor training, Neuromotor development, Passive ROM, Active ROM, Dynamic Lumbar Stabilization, Chema Exercises, Scapular Strength/Stabilization For the Purpose of:: To decrease pain, To increase ROM, To improve nutrient delivery to tissue, To improve muscle performance and motor function, To improve ability to perform ADL's, To increase tolerance to activity/condition/position, To improve performance and independence with ADL's, To decrease level of supervision to perform tasks, To improve ability of physical actions for home/community/work/leisure, To improve gait and locomotor functions, To improve health of tissue, To decrease soft tissue restriction, To increase flexibility/ROM, To improve endurance, To improve safety with gait Functional Training to Include: Gait training For the Purpose of:: To improve gait and locomotor functions Manual Therapy Techniques to Include: Passive ROM For the Purpose of:: To increase flexibility/ROM Please do not hesitate to contact me at [phone] by phone or if you have questions or concerns regarding this new plan of care! Sincerely, FELICIA Rodas
--- NOTE | 2021-12-25 10:43 | HP.PTDCSUM_ITS ---
It has been my pleasure to treat KASSIDY De La Cruz FACEMIRE referred by AIDEN Morgan, with the diagnosis of c-spine Radic, Dorsalgia, cervicalgia, chronic pain for a total of 5 visit(s). Discharge Date: 12/25/21 Please see the following information for a summary of their discharge status. Subjective: He reports that he forgets his exercises sometimes. Pt reports that he still has back pain and when standing still he has back pain. Pt goes to see the Dr on Friday or Friday and wants to see what the Dr says. He reports that he wants us to put his chart on hold until he talks to the Dr. He has pain into his R shoulder. neck pain Pain Intensity (Out of 10): 3 back pain Pain Intensity (Out of 10): 6 % Improvement: 50 Objective/Function: + SLR on the L for pain. LE MMT: B hip flex 4/5, B knee flex 4/5, B knee ext 4/5, B hip abd 4/5, B hip ext 4/5. Pt is able to walk on heels and toes without signs of weakness. Trunk AROM: flex 100%, ext 75%, Rot B 75%, Sb B 75%. UE MMT: B flex 4/5, B abd 4-/5, R IR 4-/5 and L 4/5, B ER 4- /5. R IR increase pain with MMT. Stairs: up and down the stairs recip with no hand rails. Goal 1:: I HEP Goal Progress: Goal Met Goal 2:: Decrease pain to 4/10 neck, back, arms and LE's. Goal Progress: Progressing Goal 3:: Increase B UE/LE strength by 1/2 muscle grade (at time of the eval: UE MMT: Flexion 4/5 B, abd 4-/5 B, ER 4/5, Bicep 4-/5 and LE MMT: B hip flex 4/5, B knee ext 4-/5, B knee flex 4-/5, B hip abd 4-/5, Bridge 3/4 normal ROM). Goal Progress: Progressing Goal 4:: Stairs: be able to go up and down the steps recip with 1 hand rail with a smooth gait pattern Goal Progress: Goal Met Plan: Hold chart per Pt request until after he sees his Dr who has run multiple test for carpal tunnel etc. Discharge Comments: DC PT as pt did not call in after appt. If there are questions or concerns regarding this patient's physical therapy, please feel free to call me at [phone]. Thank you for the referral of this patient. Sincerely, Silvina Deleon, MPT Balance/Gait/Functional tests - Balance/Special Test Scores Oswestry Neck Score: 37
== END 2021-09-12 19:00 | disposition home or self-care (01) ==
LOC: PT 16:30
PROVIDERS: PCP Internal Medicine; Referring Provider Nurse Practitioner Family; Visit Provider Nurse Practitioner Family
DX: M54.12 Radiculopathy, cervical region (principal); G89.29 Other chronic pain
CPT/HCPCS: 97110; 97161; 97530

== ENCOUNTER → 2021-09-26 14:25 | Outpatient (CLI) | payer MEDICAID, SELFPAY ==
[2021-05-30 10:48] VITALS: BMI 22.2
--- NOTE | 2021-09-26 16:03 | NEURO_ITS ---
NCS and/or EMG Patient Report Ordering Doctor: Roger Kirk DATE OF SERVICE: 09/26/21 Rufino presents for electrodiagnostic testing of the upper limbs. Reports 3- year history of numbness and tingling in both hands and reports weakness in the hands. Electrodiagnostic findings: Median motor nerve demonstrates normal distal latency, amplitude and conduction velocity bilaterally. Normal ulnar motor response bilaterally. Normal median ulnar F waves. Since responses are within normal limits. On needle EMG, all muscles tested in the upper limbs show no evidence of denervation with normal motor unit action potentials. Electrodiagnostic impression: This is a normal electrodiagnostic study of the upper limbs. There is no electrodiagnostic evidence for peripheral neuropathy, including cubital tunnel or carpal tunnel syndrome. There is no electrodiagnostic evidence for cervical radiculopathy.
== END ==
PROVIDERS: PCP Internal Medicine; Referring Provider Internal Medicine; Visit Provider Internal Medicine
DX: G56.03 Carpal tunnel syndrome, bilateral upper limbs (principal)
CPT/HCPCS: 95886; 95913

== ENCOUNTER → 2021-11-20 11:46 | Outpatient (CLI) | payer MEDICAID, SELFPAY ==
[2021-11-20 13:16] LABS: Anion Gap 7 (5-15); BUN 20 mg/dL (7-18); BUN/Creat Ratio 18.2 RATIO (10-20); Calcium,Total 9.1 mg/dL (8.5-10.1); Chloride 105 mmol/L (98-107); EST Glomerular Filtration Rate 76 mL/min (>60); Est Glom Filt Rate - Afr Amer 92 mL/min (>60); Glucose 151 mg/dL (74-106); Sodium Level 139 mmol/L (136-145)
== END ==
PROVIDERS: PCP Internal Medicine; Visit Provider Nurse Practitioner Family
DX: I10 Essential (primary) hypertension (principal)
CPT/HCPCS: 80048

== ENCOUNTER 2021-11-30 08:26 | Outpatient (CLI) | payer MEDICAID, SELFPAY | END 2021-11-30 23:59 | disposition short-term general hospital (02) | LOC: LABSPEC 08:27 | PROVIDERS: PCP Internal Medicine; Referring Provider Internal Medicine; Visit Provider Internal Medicine | DX: J06.9 Acute upper respiratory infection, unspecified (principal); R09.81 Nasal congestion | CPT/HCPCS: 87635; U0003; U0005 ==

== ENCOUNTER 2022-01-16 16:14 | Inpatient (IN) | payer MEDICAID, SELFPAY ==
[2022-01-16 16:14] VITALS: BP 128/89; PULSE 76; RESP 20; TEMP 36.1; O2SAT 98; BMI 28.0
--- NOTE | 2022-01-16 16:27 | CT_ITS ---
INDICATION: upper abd pain EXAMINATION: CT Abdomen And Pelvis W/ Contrast Injection TECHNIQUE: Helically acquired images were obtained of the abdomen and pelvis after IV contrast. A radiation dose optimization technique was used for this scan. IV Contrast dosage and agent: IV 100mL Isovue-300 Oral contrast: None. COMPARISON: None. FINDINGS: Visualized lung bases: Unremarkable Liver: Heterogeneous parenchyma. Gallbladder: Markedly thickened gallbladder wall. 9 mm stone in the neck of the gallbladder. Spleen: Unremarkable Pancreas: Unremarkable Adrenal Glands: Unremarkable Kidneys: Scattered too small to characterize subcentimeter hypodensities bilaterally. Vasculature: Unremarkable GI Tract: Scattered diverticula throughout the colon without evidence of inflammation. Lymphadenopathy: None Peritoneum: Trace free fluid in the pelvis. Bladder: Unremarkable Reproductive organs: Unremarkable Bones/Soft tissues: No suspicious osseous or soft tissue lesions CT/Abdomen/Pelvis W IV Cont ONLY IMPRESSION: Findings suspicious for acute cholecystitis. Heterogeneous liver parenchyma concerning for diffuse liver disease such as hepatitis. Trace free fluid in the pelvis. Electronically Signed: Wero Ferreira MD at 18:01 EST ,
[2022-01-16] MEDS: Ondansetron 4 MG/2 ML Vial IV ×2 (16:51→19:58)
[2022-01-16] MEDS: Morphine 4 MG/ML Syringe IV (16:51)
[2022-01-16] MEDS: 0.9% Normal Saline 1,000 ML 1000 ML IV ×2 (16:52→19:58)
[2022-01-16 17:05] LABS: Absolute Neutrophil Count 3.4 X10^3/uL (2.0-7.7); Basophil# 0.09 X10^3/uL; Basophil% 1.4 % (0-1); Eosinophil# 0.11 X10^3/uL; Eosinophils% 1.8 % (0-5); Hematocrit 43.1 % (40-54); Hemoglobin 14.8 g/dL (13.0-16.5); Lymphocyte % 27.1 % (19-41); Mean Corp Hgb Conc 34.3 g/dL (32-36); Mean Corpuscular Volume 90.2 fL (80-94); Monocyte# 0.73 X10^3/uL; Monocyte% 11.6 % (0-10); NRBC Flagged by Analyzer 0 % (0-5); Neutrophil # 3.36 X10^3/uL (2.7-7.7); Neutrophil % 53.6 % (47-70); Platelet Count 142 K/mm3 (150-450); RBC Distribution Width CV 17.2 % (11.6-14.6); RBC Distribution Width SD 56.9 fl (35.1-43.9); Red Blood Count 4.78 M/mm3 (4.6-6.2); White Blood Count 6.3 K/mm3 (4.4-11.0)
[2022-01-16 17:23] LABS: International Normalized Ratio 1.6; Prothrombin Time (Protime)PT. 17.9 SECONDS (11.7-14.9)
[2022-01-16 17:37] LABS: ALB/GLOB Ratio 0.7 RATIO (0.9-2.4); AST(SGOT) 2636 U/L (15-37); Alanine Aminotransfer ALT/SGPT 3670 U/L (16-61); Albumin, Serum 2.7 g/dL (3.2-5.0); Alkaline Phosphatase 181 U/L (45-117); Anion Gap 3 (5-15); BUN 11 mg/dL (7-18); Calcium,Total 8.8 mg/dL (8.5-10.1); Chloride 105 mmol/L (98-107); EST Glomerular Filtration Rate 76 mL/min (>60); Est Glom Filt Rate - Afr Amer 91 mL/min (>60); Estimated Creatinine Clearance 73.31 ml/min; Globulin 4.1 g/dL (2.2-4.2); Glucose 93 mg/dL (74-106); Lipase 102 U/L (73-393); Potassium 3.9 mmol/L (3.5-5.1); Protein, Total 6.8 g/dL (6.4-8.2); Sodium Level 136 mmol/L (136-145)
[2022-01-16 18:35] LABS: Bacteria 0 SEEN /hpf (None Seen); Mucous, Urine 0 SEEN /hpf (<or=2+); Red Blood Cells-Urine 0 SEEN /hpf (0-5); Squamous Epithelial Cells - UA 0 SEEN /hpf (0-5); White Blood Cells 0 SEEN /hpf (0-5)
[2022-01-16 18:37] LABS: Color, Urine Yellow (Yellow); Glucose, Dipstick Normal (Normal); Ketone-Dipstick Negative (Negative); Leukocyte Esterase-Dipstick Negative /ul (Negative); Nitrite-Dipstick Negative (Negative); Occult Blood-Urine Negative /ul (Negative); Protein-Dipstick 15 mg/dl (Negative); Urine Clarity Clear (Clear); Urine Urobilinogen 1 mg/dl (Normal)
[2022-01-16 18:38] LABS: Urine Bilirubin Dipstick 1 mg/dL (Negative)
--- NOTE | 2022-01-16 20:03 | EX.ED.DYSGE1 ---
HPI History of Present Illness Chief Complaint: Abd Pain Onset/Context/Timing Onset: Days Current Severity: Moderate Maximum Severity: Moderate Associated Symptoms Associated Symptoms: Nausea and vomiting, dark urine Narrative Narrative: Patient presents for upper abdominal pain. This has been going on for several days. He has some nausea and vomiting with this. No change in his bowel movements. No bleeding. He also reports dark urine. He does not have a history of this. No history of liver disease, gallbladder disease, pancreatitis. Denies Tylenol use. He denies IV drug abuse but says that someone who lives with him does. He has not had sexual contact with that individual. He denies any blood transfusions. Denies any history of autoimmune disorders. He does have a history of alcohol abuse. Prior similar symptoms: No Recent Illness/Hospitalization: No PFSH FOR[facility]LY [facility] Medical History Alcohol abuse Anxiety and depression Arthritis Back problem Bilateral carpal tunnel syndrome Cervical radiculopathy Chronic back pain Chronic neck pain Deafness in left ear Erectile dysfunction GERD (gastroesophageal reflux disease) History of psychiatric care History of suicide attempt Hypertension IBS (irritable bowel syndrome) Marijuana abuse Methamphetamine abuse Nasal congestion Neuropathy Tobacco abuse Upper GI bleed URI (upper respiratory infection) Home Medications risperidone 2 mg tablet 2 mg PO QHS #30 tab 05/30/21 [Rx Last Taken Unknown] omeprazole 40 mg capsule,delayed release 40 mg PO DAILY #90 cap 06/18/21 [Rx Last Taken Unknown] divalproex 500 mg tablet,extended release 24 hr 500 mg PO DAILY tab 07/03/21 [History Last Taken Unknown] meloxicam 15 mg tablet 15 mg PO DAILY #30 tab 07/03/21 [Rx Last Taken Unknown] lisinopril 10 mg tablet 10 mg PO QDAY #30 tab 10/31/21 [Rx Last Taken Unknown] nicotine 21mg/24hr-14mg/24hr-7mg/24hr daily transderm patches,sequentl 1 patch TRANSDERMAL QDAY #70 patch 10/31/21 [Rx Last Taken Unknown] sildenafil 100 mg tablet 100 mg PO DAILY PRN #20 tab 01/01/22 [Rx Last Taken Unknown] Allergy/AdvReac Type Severity Reaction Status Date / Time ibuprofen [From Motrin] AdvReac Upset Verified 01/16/22 16:18 Stomach zolpidem tartrate AdvReac NOSE BLEED Verified 01/16/22 16:18 [From Markoien] Social History Smoking Status: Current every day smoker tobacco type: cigarettes alcohol intake: former substance use type: former substance user ROS ROS ED Constitutional Constitutional ED: Denies chills or fever(s) Eyes Eyes: Denies change in vision ENT ENT ED: Denies ear pain Cardiovascular Cardiovascular: Denies chest pain Respiratory/Chest Respiratory/Chest: Denies dyspnea Gastrointestinal Gastrointestinal: Reports abdominal pain, nausea and vomiting; Denies constipation or diarrhea Genitourinary Genitourinary ED: Denies dysuria Musculoskeletal Musculoskeletal: Denies myalgias Integumentary Denies rash Neurologic Neurologic: Denies headache(s) Psychiatric Psychiatric: Denies depression Endocrine Endocrinology: Denies polyuria Allergic/Immunologic Allergic/Immunologic ED: Denies urticaria EXAM Physical Exam Const Vital Signs: 01/16/22 16:14 Temperature 97.0 F L Temperature Source Temporal Pulse Rate 76 Respiratory Rate 20 H Blood Pressure 128/89 H Blood Pressure Mean 102 Pulse Ox 98 Oxygen Delivery Method Room Air Positive well nourished and well developed General Appearance ED: well developed HEENT Negative for trauma Eyes EOMs intact bilaterally General Eye ED: Yes scleral icterus Neck supple Resp normal respiratory effort and clear to auscultation bilaterally Cardio regular rate GI Palpation: tender Back/Spine Negative for no CVA tenderness Neuro oriented x3 Sensorium / Orientation: alert Psych mental status grossly normal Mood & Affect: Negative for depressed, anxious or tearful Skin General Skin Exam: jaundice MDM MDM MDM Narrative Medical decision making narrative: Patient has signs and symptoms of liver disease. His liver enzymes are very elevated indicating hepatitis. CT did show possible cholecystitis. This was reviewed by Dr. Olivares. She did not feel that this was consistent with cholecystitis and that his inflammation was secondary to hepatitis. She did not feel that operative care was indicated. I spoke with the patient again. He is having a lot of nausea and unable to eat or drink. He would like to be admitted for an inpatient care and further evaluation. I advised that we may not have all of the answers during his hospitalization. He voiced understanding. He was treated with fluids and Zofran. I contacted the hospitalist who will admit for further care. Impression #1 acute hepatitis Impression #2 nausea and vomiting Lab Data Attestation: I reviewed the patient's lab results. Labs: Laboratory Results - last 24 hr 01/16/22 01/16/22 01/16/22 16:50 16:50 16:50 WBC 6.3 RBC 4.78 Hgb 14.8 Hct 43.1 MCV 90.2 MCH 31.0 MCHC 34.3 RDW Std Deviation 56.9 H RDW Coeff of Joseph 17.2 H Plt Count 142 L MPV 11.0 Immature Gran % (Auto) 4.500 H Neut % (Auto) 53.6 Lymph % (Auto) 27.1 [place] % (Auto) 11.6 H Eos % (Auto) 1.8 Baso % (Auto) 1.4 H Absolute Neuts (auto) 3.4 Absolute Lymphs (auto) 1.70 Nucleated RBC % 0 PT 17.9 H INR 1.6 Sodium 136 Potassium 3.9 Chloride 105 Carbon Dioxide 28.0 Anion Gap 3 L BUN 11 Creatinine 1.10 Estim Creat Clear Calc 73.31 Est GFR (MDRD) Af Amer 91 Est GFR (MDRD) Non-Af 76 BUN/Creatinine Ratio 10.0 Glucose 93 Calcium 8.8 Total Bilirubin 6.20 H AST 2636 H ALT 3670 H Alkaline Phosphatase 181 H Total Protein 6.8 Albumin 2.7 L Globulin 4.1 Albumin/Globulin Ratio 0.7 L Lipase 102 Urine Color Urine Clarity Urine pH Ur Specific [place] Urine Protein Urine Glucose (UA) Urine Ketones Urine Occult Blood Urine Nitrite Urine Bilirubin Urine Urobilinogen Ur Leukocyte Esterase Urine RBC Urine WBC Ur Squamous Epith Cells Urine Bacteria Urine Mucus 01/16/22 18:30 WBC RBC Hgb Hct MCV MCH MCHC RDW Std Deviation RDW Coeff of Joseph Plt Count MPV Immature Gran % (Auto) Neut % (Auto) Lymph % (Auto) [place] % (Auto) Eos % (Auto) Baso % (Auto) Absolute Neuts (auto) Absolute Lymphs (auto) Nucleated RBC % PT INR Sodium Potassium Chloride Carbon Dioxide Anion Gap BUN Creatinine Estim Creat Clear Calc Est GFR (MDRD) Af Amer Est GFR (MDRD) Non-Af BUN/Creatinine Ratio Glucose Calcium Total Bilirubin AST ALT Alkaline Phosphatase Total Protein Albumin Globulin Albumin/Globulin Ratio Lipase Urine Color Yellow Urine Clarity Clear Urine pH 7.0 Ur Specific [place] 1.010 Urine Protein 15 H Urine Glucose (UA) Normal Urine Ketones Negative Urine Occult Blood Negative Urine Nitrite Negative Urine Bilirubin 1 H Urine Urobilinogen 1 H Ur Leukocyte Esterase Negative Urine RBC 0 SEEN Urine WBC 0 SEEN Ur Squamous Epith Cells 0 SEEN Urine Bacteria 0 SEEN Urine Mucus 0 SEEN Radiography Diagnostic Testing: Clinical Impression(s) from Imaging Studies Abdomen/Pelvis CT 01/16/22 16:27 IMPRESSION: Findings suspicious for acute cholecystitis. Heterogeneous liver parenchyma concerning for diffuse liver disease such as hepatitis. Trace free fluid in the pelvis. Electronically Signed: Wero Ferreira MD at 18:01 EST , Discharge Plan Triage Chief Complaint: Abd Pain ED Provider: Aleksandar Huff Dx/Rx/DC Orders Prescriptions: No Action divalproex 500 mg tablet extended release 24 hr 500 mg PO DAILY RF: 0 meloxicam [Mobic] 15 mg tablet 15 mg PO DAILY Qty: 30 RF: 1 lisinopril 10 mg tablet 10 mg PO QDAY Qty: 30 RF: 11 nicotine 21-14-7 mg/24 hr patch, TD daily, sequential 1 patch transdermal QDAY Qty: 70 RF: 0 risperidone 2 mg tablet 2 mg PO QHS Qty: 30 RF: 1 omeprazole 40 mg capsule,delayed release(DR/EC) 40 mg PO DAILY Qty: 90 RF: 2 sildenafil 100 mg tablet 100 mg PO DAILY PRN (Reason: sexual activity) Qty: 20 RF: 0 Primary Care Provider: Roger Kirk
--- NOTE | 2022-01-16 20:08 | PCM.HP.STD ---
HPI - General General Date of Admission: 01/16/22 HPI Narrative RUFINO SALAS, is a 51 M with a significant history of former tobacco abuse; marijuana abuse; anxiety and depression who presents persistent nausea and vomiting that started about 4 days ago. Associated with his symptoms is abdominal pain. His abdominal pain is located at his upper umbilical region. He reports black stools that he attributes of juice that he drank. He also has some lump in his abdomen that he thinks has increased in size. FORMERLY [facility] Medical History (Updated 01/16/22 @ 21:02 by Teri Rushing) Alcohol abuse Anxiety and depression Arthritis Back problem Bilateral carpal tunnel syndrome Cervical radiculopathy Chronic back pain Chronic neck pain Deafness in left ear Erectile dysfunction GERD (gastroesophageal reflux disease) History of psychiatric care History of suicide attempt Hypertension IBS (irritable bowel syndrome) Marijuana abuse Methamphetamine abuse Migraines Nasal congestion Neuropathy Smoker Substance abuse Tobacco abuse Upper GI bleed URI (upper respiratory infection) Home Medications divalproex 500 mg tablet,extended release 24 hr 1,000 mg PO QHS tab 07/03/21 [History Last Taken Unknown] sildenafil 100 mg tablet 100 mg PO DAILY PRN #20 tab 01/01/22 [Rx Last Taken Unknown] cariprazine [Vraylar] 3 mg PO QHS 01/16/22 [History Last Taken Unknown] lisinopril 10 mg PO QHS 01/16/22 [History Last Taken Unknown] omeprazole 40 mg PO QHS 01/16/22 [History Last Taken Unknown] risperidone 2 mg PO QHS 01/16/22 [History Last Taken Unknown] vortioxetine [Trintellix] 5 mg PO QHS 01/16/22 [History Last Taken Unknown] Allergy/AdvReac Type Severity Reaction Status Date / Time ibuprofen [From Motrin] AdvReac Upset Verified 01/16/22 16:18 Stomach zolpidem tartrate AdvReac NOSE BLEED Verified 01/16/22 16:18 [From Ambien] Family History (Updated 01/16/22 @ 23:[address] Rufino Saunders MD) Other Heart disease Melanoma Social History Smoking Status: Current every day smoker tobacco type: cigarettes alcohol intake: former substance use type: former substance user ROS ROS Narrative Constitutional: Denies fever, chills, fatigue, anorexia and change in weight Eyes: Denies blurry vision, change in eye color, change in vision, discharge from eye(s), double vision, erythema, eye pain, loss of vision or other HEENT: Denies abnormal hearing, dysphagia, ear pain, epistaxis, headache(s), hearing loss, nasal congestion, nasal discharge, post nasal drip, sinus pressure, sore throat or other Cardiovascular: Denies chest pain or palpitations. Denies dyspnea on exertion, orthopnea and paroxysmal nocturnal dyspnea Respiratory/Chest: Denies cough, excessive phlegm production, shortness of breath with exertion and wheezing Gastrointestinal: Complains nausea, vomiting and abdominal pain. Denies coffee ground emesis, constipation, diarrhea, dyspepsia, hematemesis, hematochezia, or other Genitourinary: Denies burning urination, difficulty urinating, dysuria, hematuria, nocturia, urinary frequency, urinary hesitancy, urinary incontinence, urinary urgency or other Musculoskeletal: Denies arthralgias, back pain, joint pain, joint stiffness, joint swelling, myalgias, neck pain or other Neurologic: Denies abnormal gait, abnormal speech, confusion, disequilibrium, dizziness, focal weakness, headache(s), numbness, paresthesias, seizure-like activity, seizures, syncope, tingling, tremor(s) or other Psychiatric: Denies anxiety, depression, homicidal ideation, suicidal ideation or other Endocrinology: Denies change in body appearance, cold intolerance, excessive sweating, heat intolerance, polydipsia, polyuria or other Hematologic/Lymphatic: Denies anemia, easy bleeding, easy bruising, lymphadenopathy or other Integumentary: Denies rashes Allergic/Immunologic: Denies rhinitis, hives, eczema, asthma or other Vital Signs Vital Signs Vital Signs: 01/16/22 16:14 Temperature 97.0 F L Temperature Source Temporal Pulse Rate 76 Respiratory Rate 20 H Blood Pressure 128/89 H Blood Pressure Mean 102 Pulse Ox 98 Oxygen Delivery Method Room Air Weight Weight: 78.744 kg Body Mass Index (BMI) 28.0 Physical Exam Narrative Physical exam: General: Well-nourished, well-developed. Head: Normocephalic, atraumatic, no tenderness Eyes: Sclera icterus . PERRLA, EOMI ENT, no trauma, moist mucous membranes, no rhinorrhea Neck: Nontender, full range of motion, no spinal tenderness, deformities, step-off CVS: Regular rate and rhythm. S1-S2 present. No murmur, gallop or rub. Respiratory : clear to auscultation bilaterally, chest wall nontender, no wheezing Abdomen: Soft, nontender, nondistended, normal bowel sounds, no masses : Deferred Back: Nontender, no CVA tenderness, no midline spinal tenderness, deformities, step-offs Extremities: Nontender full range of motion, no trauma Skin: Normal color, no trauma, abrasions Neuro: Alert, oriented, cranial nerves II through XII grossly intact. Psychiatry: Normal mood. Normal affect. Not depressed. Not anxious. Results Lab / Micro Data Result Diagrams: 01/16/22 16:50 01/16/22 16:50 Labs: Laboratory Results - last 24 hr 01/16/22 16:50: WBC 6.3, RBC 4.78, Hgb 14.8, Hct 43.1, MCV 90.2, MCH 31.0, MCHC 34.3, RDW Std Deviation 56.9 H, RDW Coeff of Joseph 17.2 H, Plt Count 142 L, MPV 11.0, Immature Gran % (Auto) 4.500 H, Neut % (Auto) 53.6, Lymph % (Auto) 27.1, [place] % (Auto) 11.6 H, Eos % (Auto) 1.8, Baso % (Auto) 1.4 H, Absolute Neuts (auto) 3.4, Absolute Lymphs (auto) 1.70, Nucleated RBC % 0 01/16/22 16:50: PT 17.9 H, INR 1.6 01/16/22 16:50: Sodium 136, Potassium 3.9, Chloride 105, Carbon Dioxide 28.0, Anion Gap 3 L, BUN 11, Creatinine 1.10, Estim Creat Clear Calc 73.31, Est GFR (MDRD) Af Amer 91, Est GFR (MDRD) Non-Af 76, BUN/Creatinine Ratio 10.0, Glucose 93, Calcium 8.8, Total Bilirubin 6.20 H, AST 2636 H, ALT 3670 H, Alkaline Phosphatase 181 H, Total Protein 6.8, Albumin 2.7 L, Globulin 4.1, Albumin/Globulin Ratio 0.7 L, Lipase 102 01/16/22 18:30: Urine Color Yellow, Urine Clarity Clear, Urine pH 7.0, Ur Specific [place] 1.010, Urine Protein 15 H, Urine Glucose (UA) Normal, Urine Ketones Negative, Urine Occult Blood Negative, Urine Nitrite Negative, Urine Bilirubin 1 H, Urine Urobilinogen 1 H, Ur Leukocyte Esterase Negative, Urine RBC 0 SEEN, Urine WBC 0 SEEN, Ur Squamous Epith Cells 0 SEEN, Urine Bacteria 0 SEEN, Urine Mucus 0 SEEN Radiology Impression Abdomen/Pelvis CT 01/16/22 16:27 IMPRESSION: Findings suspicious for acute cholecystitis. Heterogeneous liver parenchyma concerning for diffuse liver disease such as hepatitis. Trace free fluid in the pelvis. Electronically Signed: Wero Ferreira MD at 18:01 EST , Assessment & Plan Assessment/Plan (1) Hepatitis: PLAN: Acute hepatitis CT of the abdomen was visualized and independently interpreted. I agree radiology interpretation of gallbladder inflammation and heterogenous liver parenchyma. ED doctor discussed the case with general surgeon who upon review advised that ED physician that patient symptoms may only be from hepatitis. We will check acute hepatitis panel. Will start patient on Zosyn for possible gallbladder infection. We will consult GI. N.p.o. after midnight to obtain ultrasound. IV hydration with normal saline. Pain control with morphine. Antiemetics with IV Zofran Patient is wondering whether symptoms is because of newly started medicine for depression. Of note patient was started on cariprazine (1-2% risk of hepatotoxicity) and vortioxetine a week prior to presentation. Will discontinue these meds. Further will hold off on his Depakote that he takes for depression as it can also cause hepatoxicity. Patient denies any drug use . Hypertension Blood pressure is not within goal Lisinopril continued. Trend blood pressure and adjust blood pressure medications. Marijuana abuse Counselled. Tobacco abuse Counseled Nicotine patch prescribed DVT prophylaxis: SCDs ordered. Charges/Coding Visit Charges Inpatient E&M: 00586 Init Hosp L3
[2022-01-16 20:38] VITALS: BP 123/87; PULSE 16; RESP 72; TEMP 36.7; O2SAT 95
[2022-01-16 20:45] VITALS: BMI 27.2
[2022-01-16 21:15] VITALS: BP 143/92; PULSE 60; RESP 16; TEMP 36.4; O2SAT 100
[2022-01-16] MEDS: 0.9% Normal Saline 1,000 ML 75 ML IV (23:17)
[2022-01-17] VITALS (8 sets, daily range): BP systolic 111–152; BP diastolic 76–88; PULSE 45–67; RESP 16–20; TEMP 36.5–36.8; O2SAT 92–96
[2022-01-17] MEDS: Lisinopril 10 MG Tablet PO ×2 (00:03→21:06)
[2022-01-17] MEDS: Morphine 2 MG/ML Syringe IV ×2 (02:52→10:03)
[2022-01-17] MEDS: Ondansetron 4 MG/2 ML Vial IV (05:53)
--- NOTE | 2022-01-17 05:55 | US_ITS ---
STUDY: ABDOMINAL ULTRASOUND - RIGHT UPPER QUADRANT REASON FOR VISIT: Male, 51 years old Hepatitis -- Ultrasound liver and gallbladder TECHNIQUE: Ultrasound evaluation of the right upper quadrant was performed with real-time and static ortiz-scale imaging. TECHNICAL QUALITY: Adequate. COMPARISON: Comparison is made with prior CT scan the abdomen dated 01/16/2022. FINDINGS: Liver: The liver measures 14.1 cm. There is normal echogenicity of the liver. The bile ducts are within normal limits. There is hepatic color flow. The direction of portal flow is hepatopetal. There is no demonstrated mass lesion. Gallbladder: Normal distended gallbladder. The gallbladder wall is thickened and measures 10 mm. There is a positive sonographic Cormire''s sign. There is pericholecystic fluid. Soft tissue density is seen within the gallbladder lumen. I suspect a gallstone in the neck of the gallbladder. Common Bile Duct (C.B.D.): The common bile duct measures 4.2 mm. Pancreas: Normal size of the head, body and tail of the pancreas. There is increased echogenicity of the pancreas. There is no demonstrated pancreatic mass or cyst. Right Kidney: Normal size of the right kidney. The right kidney measures 11.1 cm x 6.1 cm x 4.7 cm. Normal renal cortex. The right cortex measures 1.4 cm. 2 small right renal cysts are seen. The larger measures 1 cm x 0.9 cm x 0.9 cm. There is no right hydronephrosis. US/Liver IMPRESSION: Markedly thickened gallbladder wall with the soft tissue density within the gallbladder lumen. Small amount of pericholecystic fluid. Electronically Signed: Ignacio Casas MD at 11:08 EST ,
[2022-01-17 06:31] LABS: Hematocrit 39.7 % (40-54); Hemoglobin 13.3 g/dL (13.0-16.5); Mean Corp Hgb Conc 33.5 g/dL (32-36); Mean Corpuscular Hgb 29.8 pg (27.0-32.0); Mean Platelet Vol. 11.9 fl (6.2-12.0); POSITIVE COUNT YES; POSITIVE MORPHOLOGY YES; Platelet Count 128 K/mm3 (150-450); RBC Distribution Width CV 17.4 % (11.6-14.6); RBC Distribution Width SD 55.9 fl (35.1-43.9); Red Blood Count 4.46 M/mm3 (4.6-6.2); White Blood Count 5.9 K/mm3 (4.4-11.0)
--- NOTE | 2022-01-17 06:33 | NURSING ---
pt keeps taking his gown and monitor reappilied 4 times. Tv on for distraction. Iv wrapped with courtney wrap .
[2022-01-17 06:39] LABS: Differential Indicated MANUAL DIFF
[2022-01-17 06:59] LABS: Absolute Neutrophil Count 3.2 X10^3/uL (2.0-7.7)
[2022-01-17 07:00] LABS: Absolute Lymphocyte Count 1.95 X10^3/uL (0.83-4.51); Anisocytosis 1+; Atypical Lymphocyte 2+ %; Eosinophil 3 % (0-5); Lymphocyte 33 % (19-41); Monocyte 6 % (0-10); Myelocyte 3 % (0-0); Neutrophil-Segmented 54 % (47-70); Platelet Estimate SLT DEC (ADEQ); Promyelocyte 1 % (0-0); Red Cell Morphology NORM C+C NORMAL (NORM C&C); Total Cells Counted 100 (MANUAL DIFF)
[2022-01-17 07:14] LABS: ALB/GLOB Ratio 0.6 RATIO (0.9-2.4); AST(SGOT) 2398 U/L (15-37); Alanine Aminotransfer ALT/SGPT 3374 U/L (16-61); Albumin, Serum 2.3 g/dL (3.2-5.0); Alkaline Phosphatase 165 U/L (45-117); Anion Gap 4 (5-15); BUN 7 mg/dL (7-18); Calcium,Total 7.8 mg/dL (8.5-10.1); Chloride 106 mmol/L (98-107); Creatinine, Serum 0.87 mg/dL (0.70-1.30); EST Glomerular Filtration Rate 99 mL/min (>60); Est Glom Filt Rate - Afr Amer 120 mL/min (>60); Estimated Creatinine Clearance 92.69 ml/min; Globulin 3.8 g/dL (2.2-4.2); Glucose 95 mg/dL (74-106); Potassium 3.7 mmol/L (3.5-5.1); Protein, Total 6.1 g/dL (6.4-8.2); Sodium Level 137 mmol/L (136-145)
--- NOTE | 2022-01-17 07:25 | PN.HOSP_ITS ---
Subjective Subjective Patient is a 51-year-old gentleman who presented with nausea, vomiting and abdominal pain. Patient was found to have markedly elevated LFTs. CT of the abdomen obtained demonstrated findings suspicious for acute cholecystitis as well as radiographic evidence of acute hepatitis. Admitted to regular nursing floor for subsequent management Objective Data Objective Data Vital Signs: Vital Signs Temp Pulse Resp BP Pulse Ox 98.2 F 57 L 17 126/88 H 95 01/17/22 03:08 01/17/22 03:08 01/17/22 03:08 01/17/22 03:08 01/17/22 03:08 Oxygen Delivery Method Room Air Weight: 76.9 kg Body Mass Index (BMI) 27.2 Intake & Output: Intake and Output for Last 24 Hours 01/15/22 01/16/22 01/17/22 23:59 23:59 23:59 Intake Total 2340 / 2340 50 / 50 Balance 2340 / 2340 50 / 50 Lab / Micro Data Result Diagrams: 01/17/22 05:45 01/17/22 05:45 Labs: Laboratory Results - last 24 hr 01/16/22 16:50: WBC 6.3, RBC 4.78, Hgb 14.8, Hct 43.1, MCV 90.2, MCH 31.0, MCHC 34.3, RDW Std Deviation 56.9 H, RDW Coeff of Joseph 17.2 H, Plt Count 142 L, MPV 11.0, Immature Gran % (Auto) 4.500 H, Neut % (Auto) 53.6, Lymph % (Auto) 27.1, [place] % (Auto) 11.6 H, Eos % (Auto) 1.8, Baso % (Auto) 1.4 H, Absolute Neuts (auto) 3.4, Absolute Lymphs (auto) 1.70, Nucleated RBC % 0 01/16/22 16:50: PT 17.9 H, INR 1.6 01/16/22 16:50: Sodium 136, Potassium 3.9, Chloride 105, Carbon Dioxide 28.0, Anion Gap 3 L, BUN 11, Creatinine 1.10, Estim Creat Clear Calc 73.31, Est GFR (MDRD) Af Amer 91, Est GFR (MDRD) Non-Af 76, BUN/Creatinine Ratio 10.0, Glucose 93, Calcium 8.8, Total Bilirubin 6.20 H, AST 2636 H, ALT 3670 H, Alkaline Phosphatase 181 H, Total Protein 6.8, Albumin 2.7 L, Globulin 4.1, Albumin/Globulin Ratio 0.7 L, Lipase 102 01/16/22 18:30: Urine Color Yellow, Urine Clarity Clear, Urine pH 7.0, Ur Specific [place] 1.010, Urine Protein 15 H, Urine Glucose (UA) Normal, Urine Ketones Negative, Urine Occult Blood Negative, Urine Nitrite Negative, Urine Bilirubin 1 H, Urine Urobilinogen 1 H, Ur Leukocyte Esterase Negative, Urine RBC 0 SEEN, Urine WBC 0 SEEN, Ur Squamous Epith Cells 0 SEEN, Urine Bacteria 0 SEEN, Urine Mucus 0 SEEN 01/17/22 05:45: WBC 5.9, RBC 4.46 L, Hgb 13.3, Hct 39.7 L, MCV 89.0, MCH 29.8, MCHC 33.5, RDW Std Deviation 55.9 H, RDW Coeff of Joseph 17.4 H, Plt Count 128 L, MPV 11.9, Neut % (Auto) Not Reportable, Absolute Neuts (auto) 3.2, Absolute Lymphs (auto) 1.95, Total Counted 100, Neutrophils % (Manual) 54, Lymphocytes % (Manual) 33, Monocytes % (Manual) 6, Eosinophils % (Manual) 3, Myelocytes % 3 H, Promyelocytes % 1 H, Diff Path Review May foll, Atypical Lymphocytes 2+, Platelet Estimate SLT DEC, RBC Morphology NORM C+C, Anisocytosis 1+ 01/17/22 05:45: Sodium 137, Potassium 3.7, Chloride 106, Carbon Dioxide 27.0, Anion Gap 4 L, BUN 7, Creatinine 0.87, Estim Creat Clear Calc 92.69, Est GFR (MDRD) Af Amer 120, Est GFR (MDRD) Non-Af 99, BUN/Creatinine Ratio 8.0 L, Glucose 95, Calcium 7.8 L, Total Bilirubin 6.00 H, AST 2398 H, ALT 3374 H, Alkaline Phosphatase 165 H, Total Protein 6.1 L, Albumin 2.3 L, Globulin 3.8, Albumin/Globulin Ratio 0.6 L Radiography Diagnostic Testing: Radiology Impression Abdomen/Pelvis CT 01/16/22 16:27 IMPRESSION: Findings suspicious for acute cholecystitis. Heterogeneous liver parenchyma concerning for diffuse liver disease such as hepatitis. Trace free fluid in the pelvis. Electronically Signed: Wero Ferreira MD at 18:01 EST , Physical Exam Narrative GENERAL: cooperative HEENT: Atraumatic; EYES; icteric, Normal Conjunctiva NECK; supple, normal thyroid, RESPIRATORY: Diminished to auscultation CARDIOVASCULAR: Regular S1 S2, GI: soft, normoactive bowel sounds, : No Renal angle tenderness; EXTREMITIES: No edema, no clubbing, MUSCULOSKELETAL: no muscle wasting NEURO: Awake; no lateralizing signs. SKIN: No Rash PSYCH; Flat affect Assessment & Plan Assessment/Plan (1) Hepatitis: PLAN: Patient is a 51-year-old gentleman who presented with nausea, vomiting and abdominal pain. Patient was found to have markedly elevated LFTs. CT of the abdomen obtained demonstrated findings suspicious for acute cholecystitis as well as radiographic evidence of acute hepatitis. Admitted to regular nursing floor for subsequent management 1. Acute hepatitis ?Etiology not clear at this point admitted to regular nursing floor for conservative management as part of his management and acute hepatitis panel drawn consult placed to GI 2. Suspected acute cholecystitis ?Patient started on spectrum antibiotic therapy. Case had apparently been discussed with general surgery from the ED and the opinion was that patient symptoms possibly related to his acute hepatitis 3. Hypertension - Blood pressure controlled, home medications continued with dose adjustment as needed 4. Tobacco dependence - Counseled on cessation, offered nicotine patch for tobacco cravings 5. DVT prophylaxis ?Deemed to be low risk SCDs only at this point Charges/Coding Visit Charges Inpatient E&M: 18078 Subs Hosp L3
[2022-01-17 09:04] LABS: Erythrocyte Sedimentation Rate 8 mm/hr (0-20)
[2022-01-17 09:23] LABS: CPK Total, Creatine Kinase 46 U/L (39-308); CRP 9.09 mg/L (0.0-3.0); Ferritin 7457 ng/mL (26-388); LDH 683 U/L (87-241)
[2022-01-17 09:57] LABS: Lactic Acid 0.6 mmol/L (0.4-1.9)
[2022-01-17] MEDS: 0.9% Saline Lock 10 ML Syringe IV (10:03)
[2022-01-17 10:42] LABS: International Normalized Ratio 1.7
[2022-01-17] MEDS: 0.9% Normal Saline 1,000 ML 75 ML IV ×2 (11:32→21:02)
--- NOTE | 2022-01-17 11:43 | CASEMGMT ---
SAM GABRIEL Assessment: Face to Face with pt for initial transition planning/care coordination assessment. RN HARVEY introduced self and role at [facility], pt voices understanding and consents to assessment. Pt is A/O x4 and answers all questions appropriately at this time. Pt lying in bed asks why this CM is being so nosey. Care providers, pharmacy, and demographics verified/updated. Admitting Dx: acute hepatitis PCP:Yelena Specialists: Pt denies. Preferred Pharmacy: [facility] Prescription Benefit: yes LW/HPOA: Pt denies having a LW/DPOA and denies need for info regarding AD. LNOK: Kavon Case, friend Living Arrangements: Pt lives with friend Kavon in a two story house with 6 steps to enter. Pt reports he is I in ADL's and denies concerns at home. Transportation: Pt uses the bus for transportation. DME/HHC/SNF: Pt has a cane at home but does not use. Pt denies hx of HHC or SNF stays. Pt states he does not drink alcohol, smokes one pack of cigarettes per day and one joint a day. Pt states no concerns with going home at time of dc. Pt states no further concerns/needs. CM to follow. Advised pt to ask CM if any further question/concerns/needs arise, voices understanding. Pt Goal: Home Plan: Home
--- NOTE | 2022-01-17 17:38 | CON.PCM.GI_ITS ---
HPI Consult Data Date of Consult: 01/17/22 HPI Narrative HPI Narrative: RUFINO SALAS, is a 51 M who presentsWith abdominal pain and nausea vomiting over the last several days. Patient admits to using meth amphetamines, cocaine and alcohol prior to coming into the hospital. He has a history of alcohol abuse without cirrhosis. Patient says that he normally does not use cocaine and meth at the same time. He does not know if he is vaccinated for viral hepatitis B. He does not know if he has a history of chronic hepatitis C. He does not know if he has a history of HIV. He has not received any blood transfusions. He has no family history of hepatitis with cirrhosis. He does use marijuana on a daily basis. He does have a previous suicide attempt with a drug overdose. He says he does not try to overdose himself when he use methamphetamines and cocaine at the same time. In the ED he was discovered to have severely elevated liver enzymes and liver function test with a bilirubin of 6.4 AST and ALT above 2000 and INR 1.7. Currently his bilirubin has come down to 6 and his AST and ALT are improving into the thousands.His ultrasound of the liver was consistent with hepatitis, hepatomegaly, gallbladder wall thickening with pericholecystic fluid.His CT scan was also suspicious for acute hepatitis and acute Acalculus cholecystitis. All other 16 review of systems are negative except as per pause mentioned HPI. [facility] Medical History (Updated 01/16/22 @ 21:02 by Teri Rushing) Alcohol abuse Anxiety and depression Arthritis Back problem Bilateral carpal tunnel syndrome Cervical radiculopathy Chronic back pain Chronic neck pain Deafness in left ear Erectile dysfunction GERD (gastroesophageal reflux disease) History of psychiatric care History of suicide attempt Hypertension IBS (irritable bowel syndrome) Marijuana abuse Methamphetamine abuse Migraines Nasal congestion Neuropathy Smoker Substance abuse Tobacco abuse Upper GI bleed URI (upper respiratory infection) Home Medications divalproex 500 mg tablet,extended release 24 hr 1,000 mg PO QHS tab 07/03/21 [History Last Taken Unknown] sildenafil 100 mg tablet 100 mg PO DAILY PRN #20 tab 01/01/22 [Rx Last Taken Unknown] cariprazine [Vraylar] 3 mg PO QHS 01/16/22 [History Last Taken Unknown] lisinopril 10 mg PO QHS 01/16/22 [History Last Taken Unknown] omeprazole 40 mg PO QHS 01/16/22 [History Last Taken Unknown] risperidone 2 mg PO QHS 01/16/22 [History Last Taken Unknown] vortioxetine [Trintellix] 5 mg PO QHS 01/16/22 [History Last Taken Unknown] Allergy/AdvReac Type Severity Reaction Status Date / Time ibuprofen [From Motrin] AdvReac Upset Verified 01/16/22 16:18 Stomach zolpidem tartrate AdvReac NOSE BLEED Verified 01/16/22 16:18 [From Ambien] Family History (Updated 01/16/22 @ 23:[address] Rufino Saunders MD) Other Heart disease Melanoma Social History Smoking Status: Current every day smoker tobacco type: cigarettes alcohol intake: former substance use type: former substance user ROS Gastrointestinal Gastrointestinal: Reports abdominal pain, bloating and nausea Physical Exam Const alert General Appearance: cooperative Orientation / Consciousness: oriented to person HEENT hearing grossly normal bilaterally Head and Scalp: normal to inspection Face and Sinus: face symmetric Nose: external nose normal Mouth: oral and palatal mucosa normal Eyes conjunctivae normal General Eye: normal appearance of both eyes Neck full ROM General: normal visual inspection Lymph Lymphatic: no lymphadenopathy noted Chest inspection of chest normal and palpation of chest normal Chest: symmetrical chest wall rise Resp normal respiratory effort Effort and Inspection: able to speak in complete sentences Cardio regular rate GI non-distended Percussion: normal to percussion Rectal Exam: deferred Neuro Speech: speech normal Gait (Neuro): normal gait Medical Records Data Medical Nutrition Assessment Dietitian: Malnutrition Criteria Met Start: 01/17/22 13:27 Freq: Status: Active Protocol: Document 01/17/22 13:27 (Rec: 01/17/22 13:27 [id number]) Nutrition Malnutrition Evidence of Malnutrition Exists Yes Malnutrition (severe): Acute Illness/Injury Evidenced By Suboptimal Energy Intake ( Severe),Weight Loss (Severe) Clinical Problem Acute Disease or Injury Related Malnutrition Etiology severe, acute malnutrition r/t inadequate energy intake d/t GI distress Signs/Symptoms as evidenced by unintentional reported wt loss of 10.5#/5.8% x 5 days; estimated PO intake meeting <50% of estimated energy needs > 5 days Status Active Problem Recommendation Dietitian Recommendations/Changes recommend advance diet as tolerated when medically indicated; continue ensure enlive 120mL 4x/day w/ medpass Lab / Micro Data Result Diagrams: 01/17/22 05:45 01/17/22 05:45 Labs: Laboratory Results - last 24 hr 01/16/22 18:30: Urine Color Yellow, Urine Clarity Clear, Urine pH 7.0, Ur Specific [place] 1.010, Urine Protein 15 H, Urine Glucose (UA) Normal, Urine Ketones Negative, Urine Occult Blood Negative, Urine Nitrite Negative, Urine Bilirubin 1 H, Urine Urobilinogen 1 H, Ur Leukocyte Esterase Negative, Urine RBC 0 SEEN, Urine WBC 0 SEEN, Ur Squamous Epith Cells 0 SEEN, Urine Bacteria 0 SEEN, Urine Mucus 0 SEEN 01/17/22 05:45: WBC 5.9, RBC 4.46 L, Hgb 13.3, Hct 39.7 L, MCV 89.0, MCH 29.8, MCHC 33.5, RDW Std Deviation 55.9 H, RDW Coeff of Joseph 17.4 H, Plt Count 128 L, MPV 11.9, Neut % (Auto) Not Reportable, Absolute Neuts (auto) 3.2, Absolute Lymphs (auto) 1.95, Total Counted 100, Neutrophils % (Manual) 54, Lymphocytes % (Manual) 33, Monocytes % (Manual) 6, Eosinophils % (Manual) 3, Myelocytes % 3 H, Promyelocytes % 1 H, Diff Path Review May foll, Atypical Lymphocytes 2+, Platelet Estimate SLT DEC, RBC Morphology NORM C+C, Anisocytosis 1+ 01/17/22 05:45: Sodium 137, Potassium 3.7, Chloride 106, Carbon Dioxide 27.0, Anion Gap 4 L, BUN 7, Creatinine 0.87, Estim Creat Clear Calc 92.69, Est GFR (MDRD) Af Amer 120, Est GFR (MDRD) Non-Af 99, BUN/Creatinine Ratio 8.0 L, Glucose 95, Calcium 7.8 L, Total Bilirubin 6.00 H, AST 2398 H, ALT 3374 H, Alkaline Phosphatase 165 H, Total Protein 6.1 L, Albumin 2.3 L, Globulin 3.8, Albumin/Globulin Ratio 0.6 L 01/17/22 05:45: ESR 8 01/17/22 05:45: Ferritin 7457 H, Lactate Dehydrogenase 683 H, Total Creatine Kinase 46, C-React Prot Ext Range 9.09 H 01/17/22 09:15: PT 19.0 H, INR 1.7 01/17/22 09:15: Lactic Acid 0.6 Radiology Impression Abdomen/Pelvis CT 01/16/22 16:27 IMPRESSION: Findings suspicious for acute cholecystitis. Heterogeneous liver parenchyma concerning for diffuse liver disease such as hepatitis. Trace free fluid in the pelvis. Electronically Signed: Wero Ferreira MD at 18:01 EST , Liver Ultrasound 01/17/22 05:55 IMPRESSION: Markedly thickened gallbladder wall with the soft tissue density within the gallbladder lumen. Small amount of pericholecystic fluid. Electronically Signed: Ignacio Casas MD at 11:08 EST , Assessment and plan: 1.Acute hepatitis type I the differential diagnosis would be drug-induced injury, followed by acute viral hepatitis B greater than a greater than C. All symptoms diagnosis would be autoimmune hepatitis and ischemic hepatitis. Recommendations would be to check viral A, B, and C, anti-smooth muscle antibody, ferritin, lactic acid, INR. He is not presenting like Ronal's disease or an infiltrative disease. I also will start him on Mucomyst 1200 mg twice daily and prednisone 40 mg a day. Await for his viral serologies. I will check HIV and if he is positive for acute hepatitis B he will need to be checked for acute hepatitis D.At this time his LFTs are improving which is good for him. However needed to recheck his INR. His imaging is not suspicious for cirrhosis. If it his numbers stent continue to improve we may not need a liver biopsy. Charges/Coding Visit Charges Inpatient E&M: 77209 Init Hosp L3
[2022-01-17] MEDS: predniSONE 20 MG Tablet 40 MG PO (19:31)
[2022-01-17] MEDS: RisperiDONE 2 MG Tablet PO (21:06)
[2022-01-17] MEDS: Pantoprazole Sodium 40 MG Tablet PO (21:08)
[2022-01-17] MEDS: Acetylcysteine (Mucomyst Oral) 20% SOLN 1200 MG PO (22:04)
[2022-01-18 04:00] VITALS: BP 145/86; PULSE 55; RESP 16; TEMP 36.8; O2SAT 95
--- NOTE | 2022-01-18 07:41 | PCM.PN.HOSP ---
Objective Data Objective Data Vital Signs: Vital Signs Temp Pulse Resp BP Pulse Ox 98.2 F 55 L 16 145/86 H 95 01/18/22 04:00 01/18/22 04:00 01/18/22 04:00 01/18/22 04:00 01/18/22 04:00 Oxygen Delivery Method Room Air Weight: 76.9 kg Body Mass Index (BMI) 27.2 Intake & Output: Intake and Output for Last 24 Hours 01/16/22 01/17/22 01/18/22 23:59 23:59 23:59 Intake Total 2340 / 2340 1781.25 / 1781.25 50 / 50 Output Total 700 / 700 1200 / 1200 Balance 2340 / 2340 1081.25 / 1081.25 -1150 / -1150 Medical Nutrition Assessment Dietitian: Malnutrition Criteria Met Start: 01/17/22 13:27 Freq: Status: Active Protocol: Document 01/17/22 13:27 AG (Rec: 01/17/22 13:27 [id number]) Nutrition Malnutrition Evidence of Malnutrition Exists Yes Malnutrition (severe): Acute Illness/Injury Evidenced By Suboptimal Energy Intake ( Severe),Weight Loss (Severe) Clinical Problem Acute Disease or Injury Related Malnutrition Etiology severe, acute malnutrition r/t inadequate energy intake d/t GI distress Signs/Symptoms as evidenced by unintentional reported wt loss of 10.5#/5.8% x 5 days; estimated PO intake meeting <50% of estimated energy needs > 5 days Status Active Problem Recommendation Dietitian Recommendations/Changes recommend advance diet as tolerated when medically indicated; continue ensure enlive 120mL 4x/day w/ medpass Lab / Micro Data Result Diagrams: 01/18/22 08:08 01/18/22 08:08 Labs: Laboratory Results - last 24 hr 01/17/22 05:45: ESR 8 01/17/22 05:45: Ferritin 7457 H, Lactate Dehydrogenase 683 H, Total Creatine Kinase 46, C-React Prot Ext Range 9.09 H 01/17/22 09:15: PT 19.0 H, INR 1.7 01/17/22 09:15: Lactic Acid 0.6 Radiography Diagnostic Testing: Radiology Impression Liver Ultrasound 01/17/22 05:55 IMPRESSION: Markedly thickened gallbladder wall with the soft tissue density within the gallbladder lumen. Small amount of pericholecystic fluid. Electronically Signed: Ignacio Casas MD at 11:08 EST , Physical Exam Narrative GENERAL: cooperative HEENT: Atraumatic; EYES; icteric, Normal Conjunctiva NECK; supple, normal thyroid, RESPIRATORY: Diminished to auscultation CARDIOVASCULAR: Regular S1 S2, GI: soft, normoactive bowel sounds, : No Renal angle tenderness; EXTREMITIES: No edema, no clubbing, MUSCULOSKELETAL: no muscle wasting NEURO: Awake; no lateralizing signs. SKIN: No Rash PSYCH; Flat affect
[2022-01-18 07:45] VITALS: O2SAT 92
--- NOTE | 2022-01-18 08:03 | PCM.PROGNOTE ---
Subjective Subjective Patient said that he is hungry and wants something to eat. He denies any abdominal pain, headache or lethargy. He was afebrile overnight. Objective Data Objective Data Vital Signs: Vital Signs Temp Pulse Resp BP Pulse Ox 98.2 F 55 L 16 145/86 H 92 01/18/22 04:00 01/18/22 04:00 01/18/22 04:00 01/18/22 04:00 01/18/22 07:45 Oxygen Delivery Method Room Air Weight: 169 lb 8.568 oz Body Mass Index (BMI) 27.2 Intake & Output: Intake and Output for Last 24 Hours 01/16/22 01/17/22 01/18/22 23:59 23:59 23:59 Intake Total 2340 / 2340 1781.25 / 1781.25 50 / 50 Output Total 700 / 700 1200 / 1200 Balance 2340 / 2340 1081.25 / 1081.25 -1150 / -1150 Medical Nutrition Assessment Dietitian: Malnutrition Criteria Met Start: 01/17/22 13:27 Freq: Status: Active Protocol: Document 01/17/22 13:27 AG (Rec: 01/17/22 13:27 [id number]) Nutrition Malnutrition Evidence of Malnutrition Exists Yes Malnutrition (severe): Acute Illness/Injury Evidenced By Suboptimal Energy Intake ( Severe),Weight Loss (Severe) Clinical Problem Acute Disease or Injury Related Malnutrition Etiology severe, acute malnutrition r/t inadequate energy intake d/t GI distress Signs/Symptoms as evidenced by unintentional reported wt loss of 10.5#/5.8% x 5 days; estimated PO intake meeting <50% of estimated energy needs > 5 days Status Active Problem Recommendation Dietitian Recommendations/Changes recommend advance diet as tolerated when medically indicated; continue ensure enlive 120mL 4x/day w/ medpass Lab / Micro Data Result Diagrams: 01/17/22 05:45 01/17/22 05:45 Labs: Laboratory Results - last 24 hr 01/17/22 05:45: ESR 8 01/17/22 05:45: Ferritin 7457 H, Lactate Dehydrogenase 683 H, Total Creatine Kinase 46, C-React Prot Ext Range 9.09 H 01/17/22 09:15: PT 19.0 H, INR 1.7 01/17/22 09:15: Lactic Acid 0.6 Radiography Diagnostic Testing: Radiology Impression Liver Ultrasound 01/17/22 05:55 IMPRESSION: Markedly thickened gallbladder wall with the soft tissue density within the gallbladder lumen. Small amount of pericholecystic fluid. Electronically Signed: Ignacio Casas MD at 11:08 EST , Physical Exam Const alert General Appearance: cooperative Orientation / Consciousness: oriented to person HEENT hearing grossly normal bilaterally Head and Scalp: normal to inspection Face and Sinus: face symmetric Nose: external nose normal Mouth: oral and palatal mucosa normal Eyes conjunctivae normal General Eye: normal appearance of both eyes Neck full ROM General: normal visual inspection Lymph Lymphatic: no lymphadenopathy noted Chest inspection of chest normal and palpation of chest normal Chest: symmetrical chest wall rise Resp normal respiratory effort Effort and Inspection: able to speak in complete sentences Cardio regular rate GI non-distended Percussion: normal to percussion Rectal Exam: deferred Neuro Speech: speech normal Gait (Neuro): normal gait Charges/Coding Visit Charges Inpatient E&M: 55182 Subs Hosp L2 Assessment & Plan Assessment & Plan (1) Hepatitis: Plan: His ferritin is extremely high. This is likely from acute liver injury but it also could be from underlying hemochromatosis. He was started on Mucomyst and steroids yesterday. We are awaiting his viral hepatitis work-up. I will be repeating his LFTs, liver enzymes, CBC and INR. Clinically seems to be stable at this point.Severe hepatocellular injury secondary to acute liver failure from unknown origin at this time. Drug toxicity, viral hepatitis, autoimmune disease, acute on chronic liver disease with possible underlying hemochromatosis. Continue current therapy.
[2022-01-18 08:24] LABS: Absolute Lymphocyte Count 1.75 X10^3/uL (0.83-4.51); Basophil# 0.05 X10^3/uL; Basophil% 0.7 % (0-1); Hematocrit 41.2 % (40-54); Hemoglobin 14.5 g/dL (13.0-16.5); Lymphocyte # 1.75 X10^3/ul (0.83-4.51); Lymphocyte % 23.7 % (19-41); Mean Corp Hgb Conc 35.2 g/dL (32-36); Mean Corpuscular Hgb 30.9 pg (27.0-32.0); Mean Corpuscular Volume 87.8 fL (80-94); Mean Platelet Vol. 11.7 fl (6.2-12.0); Monocyte# 0.24 X10^3/uL; Monocyte% 3.3 % (0-10); NRBC Flagged by Analyzer 0 % (0-5); Neutrophil # 5.04 X10^3/uL (2.7-7.7); Neutrophil % 68.2 % (47-70); Platelet Count 162 K/mm3 (150-450); RBC Distribution Width SD 56.2 fl (35.1-43.9); Red Blood Count 4.69 M/mm3 (4.6-6.2); White Blood Count 7.4 K/mm3 (4.4-11.0)
[2022-01-18] MEDS: predniSONE 20 MG Tablet 40 MG PO (08:33)
[2022-01-18 08:35] VITALS: BP 127/84; PULSE 87; RESP 16; TEMP 36.8; O2SAT 94
[2022-01-18 08:38] LABS: International Normalized Ratio 1.8; Prothrombin Time (Protime)PT. 20.1 SECONDS (11.7-14.9)
[2022-01-18 08:45] LABS: ALB/GLOB Ratio 0.6 RATIO (0.9-2.4); AST(SGOT) 1739 U/L (15-37); Alanine Aminotransfer ALT/SGPT 3288 U/L (16-61); Albumin, Serum 2.4 g/dL (3.2-5.0); Alkaline Phosphatase 170 U/L (45-117); Anion Gap 6 (5-15); BUN 9 mg/dL (7-18); BUN/Creat Ratio 9.3 RATIO (10-20); Bilirubin, Direct 5.55 mg/dL (0.00-0.30); Calcium,Total 8.5 mg/dL (8.5-10.1); Chloride 108 mmol/L (98-107); Creatinine, Serum 0.97 mg/dL (0.70-1.30); EST Glomerular Filtration Rate 87 mL/min (>60); Est Glom Filt Rate - Afr Amer 105 mL/min (>60); Estimated Creatinine Clearance 83.13 ml/min; Glucose 153 mg/dL (74-106); Potassium 4.2 mmol/L (3.5-5.1); Protein, Total 6.4 g/dL (6.4-8.2); Sodium Level 138 mmol/L (136-145)
[2022-01-18] MEDS: Morphine 2 MG/ML Syringe IV (08:46)
[2022-01-18 09:09] LABS: Hepatitis A IgM Antibody Negative (Negative); Hepatitis B Core AB IgM Positive (Negative)
--- NOTE | 2022-01-18 09:30 | PN.HOSP_ITS ---
Subjective Subjective Patient was seen in consultation by Dr. Cano with GI additional diagnostic evaluation to rule out autoimmune hepatitis versus ischemic hepatitis ordered. Patient was also started on Mucomyst as well as prednisone 40 mg daily. Objective Data Objective Data Vital Signs: Vital Signs Temp Pulse Resp BP Pulse Ox 98.3 F 87 16 127/84 H 94 01/18/22 08:35 01/18/22 08:35 01/18/22 08:35 01/18/22 08:35 01/18/22 08:35 Oxygen Delivery Method Room Air Weight: 76.9 kg Body Mass Index (BMI) 27.2 Intake & Output: Intake and Output for Last 24 Hours 01/16/22 01/17/22 01/18/22 23:59 23:59 23:59 Intake Total 2340 / 2340 1781.25 / 1781.25 50 / 50 Output Total 700 / 700 1200 / 1200 Balance 2340 / 2340 1081.25 / 1081.25 -1150 / -1150 Medical Nutrition Assessment Dietitian: Malnutrition Criteria Met Start: 01/17/22 13:27 Freq: Status: Active Protocol: Document 01/17/22 13:27 AG (Rec: 01/17/22 13:27 [id number]) Nutrition Malnutrition Evidence of Malnutrition Exists Yes Malnutrition (severe): Acute Illness/Injury Evidenced By Suboptimal Energy Intake ( Severe),Weight Loss (Severe) Clinical Problem Acute Disease or Injury Related Malnutrition Etiology severe, acute malnutrition r/t inadequate energy intake d/t GI distress Signs/Symptoms as evidenced by unintentional reported wt loss of 10.5#/5.8% x 5 days; estimated PO intake meeting <50% of estimated energy needs > 5 days Status Active Problem Recommendation Dietitian Recommendations/Changes recommend advance diet as tolerated when medically indicated; continue ensure enlive 120mL 4x/day w/ medpass Lab / Micro Data Result Diagrams: 01/18/22 08:08 01/18/22 08:08 Labs: Laboratory Results - last 24 hr 01/17/22 09:15: PT 19.0 H, INR 1.7 01/17/22 09:15: Lactic Acid 0.6 01/18/22 08:08: WBC 7.4, RBC 4.69, Hgb 14.5, Hct 41.2, MCV 87.8, MCH 30.9, MCHC 35.2 D, RDW Std Deviation 56.2 H, RDW Coeff of Joseph 18.0 H, Plt Count 162, MPV 11.7, Immature Gran % (Auto) 4.100 H, Neut % (Auto) 68.2, Lymph % (Auto) 23.7, [place] % (Auto) 3.3, Eos % (Auto) 0.0, Baso % (Auto) 0.7, Absolute Neuts (auto) 5.0, Absolute Lymphs (auto) 1.75, Nucleated RBC % 0 01/18/22 08:08: Sodium 138, Potassium 4.2, Chloride 108 H, Carbon Dioxide 24.0, Anion Gap 6, BUN 9, Creatinine 0.97, Estim Creat Clear Calc 83.13, Est GFR (MDRD) Af Amer 105, Est GFR (MDRD) Non-Af 87, BUN/Creatinine Ratio 9.3 L, Glucose 153 H, Calcium 8.5, Total Bilirubin 7.20 H, Direct Bilirubin 5.55 H, AST 1739 H, ALT 3288 H, Alkaline Phosphatase 170 H, Total Protein 6.4, Albumin 2.4 L , Globulin 4.0, Albumin/Globulin Ratio 0.6 L 01/18/22 08:08: PT 20.1 H, INR 1.8 Radiography Diagnostic Testing: Radiology Impression Liver Ultrasound 01/17/22 05:55 IMPRESSION: Markedly thickened gallbladder wall with the soft tissue density within the gallbladder lumen. Small amount of pericholecystic fluid. Electronically Signed: Ignacio Casas MD at 11:08 EST , Physical Exam Narrative GENERAL: cooperative HEENT: Atraumatic; EYES; icteric, Normal Conjunctiva NECK; supple, normal thyroid, RESPIRATORY: Diminished to auscultation CARDIOVASCULAR: Regular S1 S2, GI: soft, normoactive bowel sounds, : No Renal angle tenderness; EXTREMITIES: No edema, no clubbing, MUSCULOSKELETAL: no muscle wasting NEURO: Awake; no lateralizing signs. SKIN: No Rash PSYCH; Flat affect Assessment & Plan Assessment/Plan (1) Hepatitis: PLAN: Patient is a 51-year-old gentleman who presented with nausea, vomiting and abdominal pain. Patient was found to have markedly elevated LFTs. CT of the abdomen obtained demonstrated findings suspicious for acute cholecystitis as well as radiographic evidence of acute hepatitis. Admitted to regular nursing floor for subsequent management 1. Acute hepatitis ?Etiology not clear at this point admitted to regular nursing floor for conservative management as part of his management and acute hepatitis panel drawn consult placed to GI -01/18/2022; Patient was seen in consultation by Dr. Cano with GI additional diagnostic evaluation to rule out autoimmune hepatitis versus ischemic hepatitis ordered. Patient was also started on Mucomyst as well as prednisone 40 mg daily. 2. Suspected acute cholecystitis ?Patient started on spectrum antibiotic therapy. Case had apparently been discussed with general surgery from the ED and the opinion was that patient symptoms possibly related to his acute hepatitis 3. Hypertension - Blood pressure controlled, home medications continued with dose adjustment as needed 4. Tobacco dependence - Counseled on cessation, offered nicotine patch for tobacco cravings 5. DVT prophylaxis ?Deemed to be low risk SCDs only at this point 8. Severe protein calorie malnutrition ?As evidenced by suboptimal energy intake and severe weight loss this is as as a result of patient underlying medical condition. Seen by dietitian recommendations reviewed Charges/Coding Visit Charges Inpatient E&M: 17445 Subs Hosp L2
[2022-01-18 10:09] LABS: Hep C Antibodies <0.1 s/co ratio (0.0-0.9)
[2022-01-18 10:11] LABS: HEPATITIS B SURFACE AG Positive (Negative)
[2022-01-18] MEDS: 0.9% Normal Saline 1,000 ML 75 ML IV (10:32)
[2022-01-18] MEDS: Acetylcysteine (Mucomyst Oral) 20% SOLN 1200 MG PO ×2 (10:39→21:07)
[2022-01-18 12:40] LABS: Pathologist Review Reviewed
[2022-01-18 15:42] VITALS: BP 134/84; PULSE 61; RESP 18; TEMP 36.4; O2SAT 95
[2022-01-18 16:10] LABS: Anti-Centromere B Ab <0.2 AI (0.0-0.9); Anti-Chromatin <0.2 AI (0.0-0.9); Anti-Jo <0.2 AI (0.0-0.9); Anti-Scleroderma-70 AB <0.2 AI (0.0-0.9); RNP Ab 0.3 AI (0.0-0.9); SJOGREN'S Anti-SS-A test < 0.2 AI (0.0-0.9); SJOGREN'S Anti-SS-B test < 0.2 AI (0.0-0.9); Smith Ab <0.2 AI (0.0-0.9)
[2022-01-18 17:23] LABS: Anti-Mitochondrial AB <20.0 Units (0.0-20.0); Anti-Smooth Muscle ABS 27 Units (0-19); Anti-dsDNA Ab 2 IU/mL (0-9)
[2022-01-18 17:38] LABS: HIV - WCH Non-Reactive (Nonreactive)
[2022-01-18] MEDS: Ondansetron 4 MG/2 ML Vial IV (19:02)
[2022-01-18] MEDS: Pantoprazole Sodium 40 MG Tablet PO (21:07)
[2022-01-18] MEDS: RisperiDONE 2 MG Tablet PO (21:07)
[2022-01-18] MEDS: TENOFOVIR DISOPROXIL FUMARATE 300 MG TABLET PO (21:08)
[2022-01-18] MEDS: Lisinopril 10 MG Tablet PO (21:08)
[2022-01-18 21:42] VITALS: BP 141/89; PULSE 78; RESP 16; TEMP 36.7; O2SAT 97
[2022-01-19] MEDS: oxyCODONE 5 MG Tablet PO ×2 (01:42→17:50)
[2022-01-19 03:42] VITALS: BP 133/81; PULSE 65; RESP 16; TEMP 37; O2SAT 95
--- NOTE | 2022-01-19 07:08 | PN.HOSP_ITS ---
Subjective Subjective Patient seen still complains of abdominal discomfort. His anti-smooth body antibody as well as hep B assay came back positive. Patient was started on steroids as well as antiviral Case discussed with Dr. Cano with GI. Plan is for patient to undergo ultrasound-guided liver biopsy on 01/21/2022 Objective Data Objective Data Vital Signs: Vital Signs Temp Pulse Resp BP Pulse Ox 98.6 F 65 16 133/81 H 95 01/19/22 03:42 01/19/22 03:42 01/19/22 03:42 01/19/22 03:42 01/19/22 03:42 Oxygen Delivery Method Room Air Weight: 76.9 kg Body Mass Index (BMI) 27.2 Intake & Output: Intake and Output for Last 24 Hours 01/17/22 01/18/22 01/19/22 23:59 23:59 23:59 Intake Total 1781.25 / 1781.25 2200 / 2200 750 / 750 Output Total 700 / 700 1550 / 1550 600 / 600 Balance 1081.25 / 1081.25 650 / 650 150 / 150 Medical Nutrition Assessment Dietitian: Malnutrition Criteria Met Start: 01/17/22 13:27 Freq: Status: Active Protocol: Document 01/17/22 13:27 (Rec: 01/17/22 13:27 [id number]) Nutrition Malnutrition Evidence of Malnutrition Exists Yes Malnutrition (severe): Acute Illness/Injury Evidenced By Suboptimal Energy Intake ( Severe),Weight Loss (Severe) Clinical Problem Acute Disease or Injury Related Malnutrition Etiology severe, acute malnutrition r/t inadequate energy intake d/t GI distress Signs/Symptoms as evidenced by unintentional reported wt loss of 10.5#/5.8% x 5 days; estimated PO intake meeting <50% of estimated energy needs > 5 days Status Active Problem Recommendation Dietitian Recommendations/Changes recommend advance diet as tolerated when medically indicated; continue ensure enlive 120mL 4x/day w/ medpass Lab / Micro Data Result Diagrams: 01/18/22 08:08 01/18/22 08:08 Labs: Laboratory Results - last 24 hr 01/17/22 05:45: Hepatitis A IgM Ab Negative, Hep Bs Antigen Positive H, Hep B Core IgM Ab Positive H, Hepatitis C Ab (EIA) <0.1 01/17/22 05:45: Diff Path Review Reviewed 01/17/22 09:15: YANNI-1 Antibody <0.2, SS-A/Ro IgG Antibody < 0.2, SS-B/La IgG Antibody < 0.2, Sm (Grimes) Antibody <0.2, WOOD HEEL FITTER MACHINE Antibody 0.3, Scl-70 Scleroderma Ab <0.2, Double Strand DNA Ab 2, Centromere B Antibody <0.2, Anti-Mitochondrial Ab <20.0 01/17/22 09:15: Anti-Smooth Muscle Ab 27 H 01/18/22 08:08: WBC 7.4, RBC 4.69, Hgb 14.5, Hct 41.2, MCV 87.8, MCH 30.9, MCHC 35.2 D, RDW Std Deviation 56.2 H, RDW Coeff of Joseph 18.0 H, Plt Count 162, MPV 11.7, Immature Gran % (Auto) 4.100 H, Neut % (Auto) 68.2, Lymph % (Auto) 23.7, [place] % (Auto) 3.3, Eos % (Auto) 0.0, Baso % (Auto) 0.7, Absolute Neuts (auto) 5.0, Absolute Lymphs (auto) 1.75, Nucleated RBC % 0 01/18/22 08:08: Sodium 138, Potassium 4.2, Chloride 108 H, Carbon Dioxide 24.0, Anion Gap 6, BUN 9, Creatinine 0.97, Estim Creat Clear Calc 83.13, Est GFR (MDRD ) Af Amer 105, Est GFR (MDRD) Non-Af 87, BUN/Creatinine Ratio 9.3 L, Glucose 153 H, Calcium 8.5, Total Bilirubin 7.20 H, Direct Bilirubin 5.55 H, AST 1739 H, ALT 3288 H, Alkaline Phosphatase 170 H, Total Protein 6.4, Albumin 2.4 L, Globulin 4.0, Albumin/Globulin Ratio 0.6 L 01/18/22 08:08: PT 20.1 H, INR 1.8 01/18/22 16:05: HIV 1&2 Antibody Non-Reactive Physical Exam Narrative GENERAL: cooperative HEENT: Atraumatic; EYES; icteric, Normal Conjunctiva NECK; supple, normal thyroid, RESPIRATORY: Diminished to auscultation CARDIOVASCULAR: Regular S1 S2, GI: soft, normoactive bowel sounds, : No Renal angle tenderness; EXTREMITIES: No edema, no clubbing, MUSCULOSKELETAL: no muscle wasting NEURO: Awake; no lateralizing signs. SKIN: No Rash PSYCH; Flat affect Assessment & Plan Assessment/Plan (1) Hepatitis: PLAN: Patient is a 51-year-old gentleman who presented with nausea, vomiting and abdominal pain. Patient was found to have markedly elevated LFTs. CT of the abdomen obtained demonstrated findings suspicious for acute cholecystitis as well as radiographic evidence of acute hepatitis. Admitted to regular nursing floor for subsequent management 1. Acute hepatitis ?Etiology not clear at this point admitted to regular nursing floor for conservative management as part of his management and acute hepatitis panel drawn consult placed to GI -01/18/2022; Patient was seen in consultation by Dr. Cano with GI additional diagnostic evaluation to rule out autoimmune hepatitis versus ischemic hepatitis ordered. Patient was also started on Mucomyst as well as prednisone 40 mg daily. - Patient seen still complains of abdominal discomfort. His anti-smooth body antibody as well as hep B assay came back positive. Patient was started on steroids as well as antiviral Case discussed with Dr. Cano with GI. Plan is for patient to undergo ultrasound-guided liver biopsy on 01/21/2022 2. Acute hep B infection ?Patient started on tenofovir. His HIV 1 and 2 assay came back negative 3. Autoimmune hepatitis ?Patient anti-smooth muscle antibody came back positive. Patient currently on prednisone 4. Suspected acute cholecystitis ?Patient started on spectrum antibiotic therapy. Case had apparently been discussed with general surgery from the ED and the opinion was that patient symptoms possibly related to his acute hepatitis -Patient has been started on antibiotics on admission has since been discontinued 5. Hypertension - Blood pressure controlled, home medications continued with dose adjustment as needed 6. Tobacco dependence - Counseled on cessation, offered nicotine patch for tobacco cravings 7. DVT prophylaxis ?Deemed to be low risk SCDs only at this point 8. Severe protein calorie malnutrition ?As evidenced by suboptimal energy intake and severe weight loss this is as as a result of patient underlying medical condition. Seen by dietitian recommendations reviewed Charges/Coding Visit Charges Inpatient E&M: 24563 Subs Hosp L3
[2022-01-19 08:00] VITALS: BP 135/76; PULSE 52; RESP 14; TEMP 37; O2SAT 98
[2022-01-19 08:03] VITALS: O2SAT 93
[2022-01-19] MEDS: 0.9% Normal Saline 1,000 ML 75 ML IV ×2 (08:11→19:00)
[2022-01-19] MEDS: TENOFOVIR DISOPROXIL FUMARATE 300 MG TABLET PO (08:11)
[2022-01-19] MEDS: Acetylcysteine (Mucomyst Oral) 20% SOLN 1200 MG PO ×2 (08:11→20:59)
[2022-01-19] MEDS: 0.9% Saline Lock 10 ML Syringe IV ×2 (08:12→19:00)
[2022-01-19] MEDS: Morphine 2 MG/ML Syringe IV ×2 (08:12→19:01)
[2022-01-19] MEDS: predniSONE 20 MG Tablet 40 MG PO (08:12)
[2022-01-19 09:47] LABS: Absolute Lymphocyte Count 2.48 X10^3/uL (0.83-4.51); Absolute Neutrophil Count 8.7 X10^3/uL (2.0-7.7); Basophil# 0.05 X10^3/uL; Basophil% 0.4 % (0-1); Eosinophil# 0.01 X10^3/uL; Eosinophils% 0.1 % (0-5); Hematocrit 36.5 % (40-54); Hemoglobin 12.7 g/dL (13.0-16.5); Lymphocyte # 2.48 X10^3/ul (0.83-4.51); Lymphocyte % 20.1 % (19-41); Mean Corp Hgb Conc 34.8 g/dL (32-36); Mean Corpuscular Hgb 30.6 pg (27.0-32.0); Mean Platelet Vol. 11.1 fl (6.2-12.0); Monocyte% 6.5 % (0-10); NRBC Flagged by Analyzer 0 % (0-5); Neutrophil % 70.5 % (47-70); Platelet Count 183 K/mm3 (150-450); RBC Distribution Width CV 18.8 % (11.6-14.6); RBC Distribution Width SD 57.5 fl (35.1-43.9); Red Blood Count 4.15 M/mm3 (4.6-6.2); White Blood Count 12.3 K/mm3 (4.4-11.0)
[2022-01-19 09:52] LABS: International Normalized Ratio 1.6; Prothrombin Time (Protime)PT. 17.9 SECONDS (11.7-14.9)
[2022-01-19 10:20] LABS: AST(SGOT) 594 U/L (15-37); Alanine Aminotransfer ALT/SGPT 2079 U/L (16-61); Albumin, Serum 2.3 g/dL (3.2-5.0); Alkaline Phosphatase 149 U/L (45-117); Anion Gap 2 (5-15); BUN 10 mg/dL (7-18); BUN/Creat Ratio 10.4 RATIO (10-20); Bilirubin, Direct 4.16 mg/dL (0.00-0.30); Calcium,Total 7.9 mg/dL (8.5-10.1); Chloride 105 mmol/L (98-107); Creatinine, Serum 0.97 mg/dL (0.70-1.30); EST Glomerular Filtration Rate 88 mL/min (>60); Est Glom Filt Rate - Afr Amer 106 mL/min (>60); Estimated Creatinine Clearance 83.13 ml/min; Globulin 3.6 g/dL (2.2-4.2); Glucose 175 mg/dL (74-106); Potassium 3.9 mmol/L (3.5-5.1); Protein, Total 5.9 g/dL (6.4-8.2); Sodium Level 138 mmol/L (136-145)
--- NOTE | 2022-01-19 11:22 | PN_ITS ---
Subjective Subjective Patient says that he is having some abdominal discomfort and feels very nauseated. He says he also feels very bloated. Objective Data Objective Data Vital Signs: Vital Signs Temp Pulse Resp BP Pulse Ox 98.6 F 52 L 14 135/76 H 93 01/19/22 08:00 01/19/22 08:00 01/19/22 08:00 01/19/22 08:00 01/19/22 08:03 Oxygen Delivery Method Room Air Weight: 169 lb 8.568 oz Body Mass Index (BMI) 27.2 Intake & Output: Intake and Output for Last 24 Hours 01/17/22 01/18/22 01/19/22 23:59 23:59 23:59 Intake Total 1781.25 / 1781.25 3200 / 3200 800 / 800 Output Total 700 / 700 1550 / 1550 600 / 600 Balance 1081.25 / 1081.25 1650 / 1650 200 / 200 Medical Nutrition Assessment Dietitian: Malnutrition Criteria Met Start: 01/17/22 13:27 Freq: Status: Active Protocol: Document 01/17/22 13:27 (Rec: 01/17/22 13:27 [id number]) Nutrition Malnutrition Evidence of Malnutrition Exists Yes Malnutrition (severe): Acute Illness/Injury Evidenced By Suboptimal Energy Intake ( Severe),Weight Loss (Severe) Clinical Problem Acute Disease or Injury Related Malnutrition Etiology severe, acute malnutrition r/t inadequate energy intake d/t GI distress Signs/Symptoms as evidenced by unintentional reported wt loss of 10.5#/5.8% x 5 days; estimated PO intake meeting <50% of estimated energy needs > 5 days Status Active Problem Recommendation Dietitian Recommendations/Changes recommend advance diet as tolerated when medically indicated; continue ensure enlive 120mL 4x/day w/ medpass Lab / Micro Data Result Diagrams: 01/19/22 09:35 01/19/22 09:35 Labs: Laboratory Results - last 24 hr 01/17/22 05:45: Diff Path Review Reviewed 01/17/22 09:15: YANNI-1 Antibody <0.2, SS-A/Ro IgG Antibody < 0.2, SS-B/La IgG Antibody < 0.2, Sm (Grimes) Antibody <0.2, SEALANT MIXER Antibody 0.3, Scl-70 Scleroderma Ab <0.2, Double Strand DNA Ab 2, Centromere B Antibody <0.2, Anti-Mitochondrial Ab <20.0 01/17/22 09:15: Anti-Smooth Muscle Ab 27 H 01/18/22 16:05: HIV 1&2 Antibody Non-Reactive 01/19/22 09:35: Sodium 138, Potassium 3.9, Chloride 105, Carbon Dioxide 31.0, Anion Gap 2 L, BUN 10, Creatinine 0.97, Estim Creat Clear Calc 83.13, Est GFR (MDRD) Af Amer 106, Est GFR (MDRD) Non-Af 88, BUN/Creatinine Ratio 10.4, Glucose 175 H, Calcium 7.9 L, Total Bilirubin 5.10 H, Direct Bilirubin 4.16 H, AST 594 H , ALT 2079 H, Alkaline Phosphatase 149 H, Total Protein 5.9 L, Albumin 2.3 L, Globulin 3.6 01/19/22 09:35: WBC 12.3 H, RBC 4.15 L, Hgb 12.7 L, Hct 36.5 L, MCV 88.0, MCH 30.6, MCHC 34.8, RDW Std Deviation 57.5 H, RDW Coeff of Joseph 18.8 H, Plt Count 183, MPV 11.1, Immature Gran % (Auto) 2.400 H, Neut % (Auto) 70.5 H, Lymph % (Auto) 20.1, [place] % (Auto) 6.5, Eos % (Auto) 0.1, Baso % (Auto) 0.4, Absolute N euts (auto) 8.7 H, Absolute Lymphs (auto) 2.48, Nucleated RBC % 0 01/19/22 09:35: PT 17.9 H, INR 1.6 Physical Exam Const alert General Appearance: cooperative Orientation / Consciousness: oriented to person HEENT hearing grossly normal bilaterally Head and Scalp: normal to inspection Face and Sinus: face symmetric Nose: external nose normal Mouth: oral and palatal mucosa normal Eyes conjunctivae normal General Eye: normal appearance of both eyes Neck full ROM General: normal visual inspection Lymph Lymphatic: no lymphadenopathy noted Chest inspection of chest normal and palpation of chest normal Chest: symmetrical chest wall rise Resp normal respiratory effort Effort and Inspection: able to speak in complete sentences Cardio regular rate GI non-distended Percussion: normal to percussion Rectal Exam: deferred Neuro Speech: speech normal Gait (Neuro): normal gait Assessment & Plan Assessment/Plan (1) Hepatitis: PLAN: Acute hepatitis secondary to acute hep B. He was started on tenofovir last night. He also has a positive smooth muscle antibody that is possibly secondary to acute or chronic autoimmune hepatitis. We will continue steroid therapy for now. He will need a liver biopsy on Friday. (2) Acute liver failure: PLAN: Continue to monitor his INR, CMP, platelet count, lactate and LDH. The patient still very sick. Charges/Coding Visit Charges Inpatient E&M: 64762 Subs Hosp L2
[2022-01-19 17:35] VITALS: BP 139/94; PULSE 55; RESP 14; TEMP 36.7; O2SAT 96
[2022-01-19 18:18] LABS: Copper, Serum or Plasma 114 ug/dL (69-132)
[2022-01-19 20:50] VITALS: BP 140/89; PULSE 54; RESP 18; TEMP 36.9; O2SAT 94
[2022-01-19] MEDS: Ondansetron 4 MG/2 ML Vial IV (20:55)
[2022-01-19] MEDS: Lisinopril 10 MG Tablet PO (20:56)
[2022-01-19] MEDS: Pantoprazole Sodium 40 MG Tablet PO (20:56)
[2022-01-19] MEDS: RisperiDONE 2 MG Tablet PO (20:57)
[2022-01-19] MEDS: proCHLORPERazine 10 MG/2 ML Vial 5 MG IV (21:19)
[2022-01-20 03:33] VITALS: BP 136/84; PULSE 93; RESP 18; TEMP 36.9; O2SAT 96
[2022-01-20] MEDS: 0.9% Normal Saline 1,000 ML 75 ML IV ×2 (04:53→16:51)
[2022-01-20 05:10] LABS: Absolute Lymphocyte Count 3.05 X10^3/uL (0.83-4.51); Absolute Neutrophil Count 8.2 X10^3/uL (2.0-7.7); Basophil# 0.05 X10^3/uL; Basophil% 0.4 % (0-1); Eosinophil# 0.01 X10^3/uL; Eosinophils% 0.1 % (0-5); Hematocrit 36.9 % (40-54); Hemoglobin 12.7 g/dL (13.0-16.5); Lymphocyte # 3.05 X10^3/ul (0.83-4.51); Lymphocyte % 23.5 % (19-41); Mean Corp Hgb Conc 34.4 g/dL (32-36); Mean Corpuscular Hgb 30.5 pg (27.0-32.0); Mean Corpuscular Volume 88.7 fL (80-94); Mean Platelet Vol. 10.9 fl (6.2-12.0); Monocyte# 1.03 X10^3/uL; Monocyte% 7.9 % (0-10); NRBC Flagged by Analyzer 0.2 % (0-5); Neutrophil # 8.24 X10^3/uL (2.7-7.7); Neutrophil % 63.6 % (47-70); Platelet Count 201 K/mm3 (150-450); RBC Distribution Width CV 19.1 % (11.6-14.6); RBC Distribution Width SD 59.7 fl (35.1-43.9); Red Blood Count 4.16 M/mm3 (4.6-6.2)
[2022-01-20 05:22] LABS: International Normalized Ratio 1.4; Prothrombin Time (Protime)PT. 16.2 SECONDS (11.7-14.9)
[2022-01-20 05:32] LABS: Anion Gap 4 (5-15); BUN 14 mg/dL (7-18); BUN/Creat Ratio 15.6 RATIO (10-20); Calcium,Total 8.4 mg/dL (8.5-10.1); Chloride 107 mmol/L (98-107); EST Glomerular Filtration Rate 95 mL/min (>60); Est Glom Filt Rate - Afr Amer 115 mL/min (>60); Glucose 146 mg/dL (74-106); Potassium 3.9 mmol/L (3.5-5.1); Sodium Level 139 mmol/L (136-145)
--- NOTE | 2022-01-20 07:16 | PN.HOSP_ITS ---
Subjective Subjective Patient seen liver function test continue to trend down. Scheduled to undergo liver biopsy on 01/21/2022 Objective Data Objective Data Vital Signs: Vital Signs Temp Pulse Resp BP Pulse Ox 98.4 F 93 18 136/84 H 96 01/20/22 03:33 01/20/22 03:33 01/20/22 03:33 01/20/22 03:33 01/20/22 03:33 Oxygen Delivery Method Room Air Weight: 76.9 kg Body Mass Index (BMI) 27.2 Intake & Output: Intake and Output for Last 24 Hours 01/18/22 01/19/22 01/20/22 23:59 23:59 23:59 Intake Total 3200 / 3200 1771.25 / 1771.25 741.25 / 741.25 Output Total 1550 / 1550 4100 / 4100 Balance 1650 / 1650 -2328.75 / -2328.75 741.25 / 741.25 Medical Nutrition Assessment Dietitian: Malnutrition Criteria Met Start: 01/17/22 13:27 Freq: Status: Active Protocol: Document 01/17/22 13:27 (Rec: 01/17/22 13:27 [id number]) Nutrition Malnutrition Evidence of Malnutrition Exists Yes Malnutrition (severe): Acute Illness/Injury Evidenced By Suboptimal Energy Intake ( Severe),Weight Loss (Severe) Clinical Problem Acute Disease or Injury Related Malnutrition Etiology severe, acute malnutrition r/t inadequate energy intake d/t GI distress Signs/Symptoms as evidenced by unintentional reported wt loss of 10.5#/5.8% x 5 days; estimated PO intake meeting <50% of estimated energy needs > 5 days Status Active Problem Recommendation Dietitian Recommendations/Changes recommend advance diet as tolerated when medically indicated; continue ensure enlive 120mL 4x/day w/ medpass Lab / Micro Data Result Diagrams: 01/20/22 04:46 01/20/22 04:46 Labs: Laboratory Results - last 24 hr 01/17/22 09:15: Serum Copper 114 01/19/22 09:35: Sodium 138, Potassium 3.9, Chloride 105, Carbon Dioxide 31.0, Anion Gap 2 L, BUN 10, Creatinine 0.97, Estim Creat Clear Calc 83.13, Est GFR (MDRD) Af Amer 106, Est GFR (MDRD) Non-Af 88, BUN/Creatinine Ratio 10.4, Glucose 175 H, Calcium 7.9 L, Total Bilirubin 5.10 H, Direct Bilirubin 4.16 H, AST 594 H , ALT 2079 H, Alkaline Phosphatase 149 H, Total Protein 5.9 L, Albumin 2.3 L, Globulin 3.6 01/19/22 09:35: WBC 12.3 H, RBC 4.15 L, Hgb 12.7 L, Hct 36.5 L, MCV 88.0, MCH 30.6, MCHC 34.8, RDW Std Deviation 57.5 H, RDW Coeff of Joseph 18.8 H, Plt Count 183, MPV 11.1, Immature Gran % (Auto) 2.400 H, Neut % (Auto) 70.5 H, Lymph % (Auto) 20.1, [place] % (Auto) 6.5, Eos % (Auto) 0.1, Baso % (Auto) 0.4, Absolute Neuts (auto) 8.7 H, Absolute Lymphs (auto) 2.48, Nucleated RBC % 0 01/19/22 09:35: PT 17.9 H, INR 1.6 01/20/22 04:46: WBC 13.0 H, RBC 4.16 L, Hgb 12.7 L, Hct 36.9 L, MCV 88.7, MCH 30.5, MCHC 34.4, RDW Std Deviation 59.7 H, RDW Coeff of Joseph 19.1 H, Plt Count 201, MPV 10.9, Immature Gran % (Auto) 4.500 H, Neut % (Auto) 63.6, Lymph % (Auto) 23.5, [place] % (Auto) 7.9, Eos % (Auto) 0.1, Baso % (Auto) 0.4, Absolute Neuts (auto) 8.2 H, Absolute Lymphs (auto) 3.05, Nucleated RBC % 0.2 01/20/22 04:46: PT 16.2 H, INR 1.4 01/20/22 04:46: Sodium 139, Potassium 3.9, Chloride 107, Carbon Dioxide 28.0, Anion Gap 4 L, BUN 14, Creatinine 0.90, Estim Creat Clear Calc 89.60, Est GFR (MDRD) Af Amer 115, Est GFR (MDRD) Non-Af 95, BUN/Creatinine Ratio 15.6, Glucose 146 H, Calcium 8.4 L Micro: Microbiology 01/20/22 03:38 Stool Stool Occult Blood (DANDRE) - Final Physical Exam Narrative GENERAL: cooperative HEENT: Atraumatic; EYES; icteric, Normal Conjunctiva NECK; supple, normal thyroid, RESPIRATORY: Diminished to auscultation CARDIOVASCULAR: Regular S1 S2, GI: soft, normoactive bowel sounds, : No Renal angle tenderness; EXTREMITIES: No edema, no clubbing, MUSCULOSKELETAL: no muscle wasting NEURO: Awake; no lateralizing signs. SKIN: No Rash PSYCH; Flat affect Assessment & Plan Assessment/Plan (1) Hepatitis: PLAN: Patient is a 51-year-old gentleman who presented with nausea, vomiting and abdominal pain. Patient was found to have markedly elevated LFTs. CT of the abdomen obtained demonstrated findings suspicious for acute cholecystitis as well as radiographic evidence of acute hepatitis. Admitted to regular nursing floor for subsequent management 1. Acute hepatitis ?Etiology not clear at this point admitted to regular nursing floor for conservative management as part of his management and acute hepatitis panel drawn consult placed to GI -01/18/2022; Patient was seen in consultation by Dr. Cano with GI additional diagnostic evaluation to rule out autoimmune hepatitis versus ischemic hepatitis ordered. Patient was also started on Mucomyst as well as prednisone 40 mg daily. -01/19/2022 patient seen still complains of abdominal discomfort. His anti- smooth body antibody as well as hep B assay came back positive. Patient was started on steroids as well as antiviral Case discussed with Dr. Cano with GI. Plan is for patient to undergo ultrasound-guided liver biopsy on 01/21/2022 -01/20/2022atient seen liver function test continue to trend down. Scheduled to undergo liver biopsy on 01/21/2022 2. Acute hep B infection ?01/19/2022 patient started on tenofovir. His HIV 1 and 2 assay came back negative 3. Autoimmune hepatitis ?Patient anti-smooth muscle antibody came back positive. Patient currently on prednisone 4. Suspected acute cholecystitis ?Patient started on spectrum antibiotic therapy. Case had apparently been discussed with general surgery from the ED and the opinion was that patient symptoms possibly related to his acute hepatitis -Patient has been started on antibiotics on admission has since been discontinued 5. Hypertension - Blood pressure controlled, home medications continued with dose adjustment as needed 6. Tobacco dependence - Counseled on cessation, offered nicotine patch for tobacco cravings 7. DVT prophylaxis ?Deemed to be low risk SCDs only at this point 8. Severe protein calorie malnutrition ?As evidenced by suboptimal energy intake and severe weight loss this is as as a result of patient underlying medical condition. Seen by dietitian recommendations reviewed Charges/Coding Visit Charges Inpatient E&M: 21072 Subs Hosp L2
[2022-01-20] MEDS: predniSONE 20 MG Tablet 40 MG PO (08:25)
[2022-01-20] MEDS: TENOFOVIR DISOPROXIL FUMARATE 300 MG TABLET PO (08:25)
[2022-01-20 08:30] VITALS: O2SAT 93
[2022-01-20 09:30] VITALS: BP 129/76; PULSE 55; RESP 14; TEMP 36.9; O2SAT 94
[2022-01-20] MEDS: Acetylcysteine (Mucomyst Oral) 20% SOLN 1200 MG PO ×2 (10:55→21:44)
[2022-01-20] MEDS: oxyCODONE 5 MG Tablet PO (12:32)
[2022-01-20] MEDS: 0.9% Saline Lock 10 ML Syringe IV ×2 (14:54→16:51)
[2022-01-20] MEDS: Ondansetron 4 MG/2 ML Vial IV (14:54)
[2022-01-20 14:58] VITALS: BP 145/84; PULSE 50; RESP 16; TEMP 36.6; O2SAT 94
[2022-01-20] MEDS: proCHLORPERazine 10 MG/2 ML Vial 5 MG IV (16:51)
[2022-01-20 20:13] VITALS: O2SAT 92
[2022-01-20 21:39] VITALS: BP 131/79; PULSE 45; RESP 18; TEMP 36.6; O2SAT 95
[2022-01-20] MEDS: Lisinopril 10 MG Tablet PO (21:44)
[2022-01-20] MEDS: RisperiDONE 2 MG Tablet PO (21:44)
[2022-01-21] VITALS (13 sets, daily range): BP systolic 132–173; BP diastolic 79–96; PULSE 44–82; RESP 11–21; TEMP 36.6–37.1; O2SAT 94–100; BMI 27.2
--- NOTE | 2022-01-21 | LIVB_PTH ---
PATIENT: KASSIDY SALAS LOC: MS3 U#:[id number] AGE/SX: 51/M ROOM: [facility] RE01/16/[address]: Dr. Xenia Dwyer MD : [id number] BED: 1 DIS: 01/21/2022 SPEC #: [id number] RECD: 01/21/22 09:51 STATUS: LIAM REIfeanyi #: [id number] CHRIS: 01/21/22 00:[address]: Jason Barnes DEPT: SURGICAL PATHOLOGY RECD BY: Estephania Leonard ENTERED: 01/21/22 11:55 SP TYPE: LIVER BX OTHR DR: MD Dr. Roger Perez MD Dr. Joseph Agyepong, MD Dr. Rahsaan Friend, DO Tissues: Liver, NOS Procedures: PAS with Diastase (control) Trichrome (control) Special Stain Group II PAS Stain (control) Surgery Specimen Level V Retic (control) Iron Stain (control) Comments: @ Ordering doctor for SUV edited from to @ by RGOOD at 01/21/22 1425 @ Submitting doctor edited from to @ by RGOOD at 01/21/22 1425 HEADER OPERATION: CT-guided liver biopsy PRE-OP DIAGNOSIS: Acute hepatitis TISSUE SUBMITTED: Liver 18-gauge core x3 MICROSCOPIC DIAGNOSIS Liver, CT-guided core biopsy: Acute and chronic hepatitis, grade 2-3, stage 1. See microscopic description and comment. SJ:quan 01/22/2022 COMMENT Correlation with clinical, laboratory findings and appropriate follow up are necessary. Case has been reviewed in consultation with Dr. Perez who concurs with the above diagnosis. IDC:AM MICROSCOPIC DESCRIPTION Slides are reviewed. The specimen shows liver parenchymal tissue with preserved lobular architecture. Hepatocyte in lobules show reactive changes, cholestasis, focal necrosis, and ballooning degeneration. Lobular acute and chronic inflammatory infiltrates are also noted. Portal area shows moderate acute and chronic inflammatory cell infiltrate consisting of predominantly lymphocytes, a few neutrophils and rare eosinophils. Iron stain shows absent iron. Reticulin stain shows normal lobular architecture. Trichrome stain does not show any significant increased fibrosis. PAS stain with and without diastase do not show any abnormal accumulation of protein. All stains are performed with appropriate matched control. GROSS DESCRIPTION Received in fixative is one container labeled with the patient's name and designated liver. The specimen consists of three elongated fragments of verduzco soft tissue measuring 0.7 to 1.2 cm in length and 0.1 cm in diameter. The entire specimen is submitted in one cassette. / SJ:quan 01/21/2022 TC:2 CPT: 81685, 06327 x5
[2022-01-21] MEDS: 0.9% Normal Saline 1,000 ML 75 ML IV (03:43)
[2022-01-21 05:56] LABS: Absolute Lymphocyte Count 3.42 X10^3/uL (0.83-4.51); Absolute Neutrophil Count 5.9 X10^3/uL (2.0-7.7); Basophil# 0.09 X10^3/uL; Basophil% 0.8 % (0-1); Hematocrit 38.1 % (40-54); Lymphocyte # 3.42 X10^3/ul (0.83-4.51); Lymphocyte % 30.8 % (19-41); Mean Corp Hgb Conc 34.1 g/dL (32-36); Mean Corpuscular Hgb 30.1 pg (27.0-32.0); Mean Corpuscular Volume 88.2 fL (80-94); Mean Platelet Vol. 11.4 fl (6.2-12.0); Monocyte# 1.16 X10^3/uL; Monocyte% 10.4 % (0-10); NRBC Flagged by Analyzer 0 % (0-5); Neutrophil % 53.1 % (47-70); Platelet Count 214 K/mm3 (150-450); RBC Distribution Width CV 19.8 % (11.6-14.6); RBC Distribution Width SD 60.8 fl (35.1-43.9); Red Blood Count 4.32 M/mm3 (4.6-6.2); White Blood Count 11.1 K/mm3 (4.4-11.0)
[2022-01-21 06:09] LABS: International Normalized Ratio 1.3; Prothrombin Time (Protime)PT. 15.5 SECONDS (11.7-14.9)
[2022-01-21 06:20] LABS: Anion Gap 7 (5-15); BUN 15 mg/dL (7-18); BUN/Creat Ratio 17.5 RATIO (10-20); Calcium,Total 8.2 mg/dL (8.5-10.1); Chloride 106 mmol/L (98-107); Creatinine, Serum 0.86 mg/dL (0.70-1.30); EST Glomerular Filtration Rate 101 mL/min (>60); Est Glom Filt Rate - Afr Amer 122 mL/min (>60); Estimated Creatinine Clearance 93.76 ml/min; Glucose 115 mg/dL (74-106); Potassium 3.9 mmol/L (3.5-5.1); Sodium Level 137 mmol/L (136-145)
--- NOTE | 2022-01-21 07:09 | CT_ITS ---
PROCEDURE: CT DIRECTED CORE LIVER BIOPSY INDICATION: Male, 51 years old. Acute hepatitis. -- Liver biopsy. PHYSICIAN: Dr. TRUPTI Corcoran CONSENT: Written informed consent was obtained having explained the risks, benefits and alternatives in detail with the patient who accepted the risks and agreed to proceed. Laboratory review and clinical assessment was performed. CONSCIOUS SEDATION PROTOCOL: The Drugs used were: 2 mg Versed, IV., and 50 mcg Fentanyl, IV. The sedation time was: 15 minutes. Conscious sedation was started at 9:01 AM and terminated. The conscious sedation protocol was independently monitored. RADIATION DOSAGE (If Supplied By Facility): CTDIvol = ( 19.2 ) mGy, DLP = ( 511.09 ) mGycm Individualized dose optimization techniques were used for this CT. TECHNIQUE: Using CT image guidance with image documentation, a suitable location in the right lobe of the liver was identified. Using an anterior approach, puncture of the liver was uneventful with an 18-gauge core needle system. 3, 18-gauge core samples were obtained, and submitted in formalin to the pathologist for further assessment. Followup CT scan revealed no distinct sequelae. CT/Biopsy/Inj or Needle Placement IMPRESSION: 1. CT directed core needle biopsy of the liver, using CT image guidance with image documentation as described. 2. Conscious Sedation protocol utilized with independent monitoring. Electronically Signed: Ignacio Casas MD at 10:52 EST ,
--- NOTE | 2022-01-21 07:37 | PN.HOSP_ITS ---
Subjective Subjective Follow-up on acute hepatitis: Patient was seen and examined. Denied any abdominal discomfort. He went for liver biopsy today. He stated he was hungry. Denies any nausea or vomiting, constipation. Objective Data Objective Data Vital Signs: Vital Signs Temp Pulse Resp BP Pulse Ox 97.8 F 46 L 18 132/79 H 96 01/21/22 03:37 01/21/22 03:37 01/21/22 03:37 01/21/22 03:37 01/21/22 03:37 Oxygen Delivery Method Room Air Weight: 76.9 kg Body Mass Index (BMI) 27.2 Intake & Output: Intake and Output for Last 24 Hours 01/19/22 01/20/22 01/21/22 23:59 23:59 23:59 Intake Total 1771.25 / 1771.25 1830.00 / 1830.00 815 / 815 Output Total 4100 / 4100 Balance -2328.75 / -2328.75 1830.00 / 1830.00 815 / 815 Medical Nutrition Assessment Dietitian: Malnutrition Criteria Met Start: 01/17/22 13:27 Freq: Status: Active Protocol: Document 01/17/22 13:27 AG (Rec: 01/17/22 13:27 [id number]) Nutrition Malnutrition Evidence of Malnutrition Exists Yes Malnutrition (severe): Acute Illness/Injury Evidenced By Suboptimal Energy Intake ( Severe),Weight Loss (Severe) Clinical Problem Acute Disease or Injury Related Malnutrition Etiology severe, acute malnutrition r/t inadequate energy intake d/t GI distress Signs/Symptoms as evidenced by unintentional reported wt loss of 10.5#/5.8% x 5 days; estimated PO intake meeting <50% of estimated energy needs > 5 days Status Active Problem Recommendation Dietitian Recommendations/Changes recommend advance diet as tolerated when medically indicated; continue ensure enlive 120mL 4x/day w/ medpass Lab / Micro Data Result Diagrams: 01/21/22 04:47 01/21/22 04:47 Labs: Laboratory Results - last 24 hr 01/21/22 04:47: WBC 11.1 H, RBC 4.32 L, Hgb 13.0, Hct 38.1 L, MCV 88.2, MCH 30.1, MCHC 34.1, RDW Std Deviation 60.8 H, RDW Coeff of Joseph 19.8 H, Plt Count 214, MPV 11.4, Immature Gran % (Auto) 4.900 H, Neut % (Auto) 53.1, Lymph % (Auto) 30.8, [place] % (Auto) 10.4 H, Eos % (Auto) 0.0, Baso % (Auto) 0.8, Absolute Neuts (auto) 5.9, Absolute Lymphs (auto) 3.42, Nucleated RBC % 0 01/21/22 04:47: PT 15.5 H, INR 1.3 01/21/22 04:47: Sodium 137, Potassium 3.9, Chloride 106, Carbon Dioxide 24.0, Anion Gap 7, BUN 15, Creatinine 0.86, Estim Creat Clear Calc 93.76, Est GFR (MDRD) Af Amer 122, Est GFR (MDRD) Non-Af 101, BUN/Creatinine Ratio 17.5, Gl ucose 115 H, Calcium 8.2 L Micro: Microbiology 01/20/22 03:38 Stool Stool Occult Blood (DANDRE) - Final Physical Exam Narrative Physical exam: General: Alert, Oriented x3, Cooperative, No apparent distress, Well developed HEENT: Atraumatic Oral: Moist Mucosa Neck: Supple Lungs: Clear to auscultation Cardiovascular: HS I+II, regular, no murmurs Abdomen: Bowel Sounds Present, Soft, Non Tender Extremities: No edema Assessment & Plan Assessment/Plan (1) Hepatitis: PLAN: 1. Acute hepatitis B/autoimmune hepatitis, status post liver biopsy on 01/21/22. Acute cholecystitis ruled out Started on Tenofovir. Continue on prednisone, recommend 2. Hypertension, fairly uncontrolled likely secondary to pain Continue lisinopril, monitor vitals closely 3. Severe protein calorie malnutrition, dietitian consulted, on supplement 4. Nicotine dependence, advised to quit, offered nicotine patch 5. DVT prophylaxis -SCDs Charges/Coding Visit Charges Inpatient E&M: 73279 Subs Hosp L2
[2022-01-21] MEDS: Midazolam 2 MG/2 ML Syringe IV (09:01)
[2022-01-21] MEDS: fentaNYL 100 MCG/2 ML Ampul IV (09:02)
[2022-01-21] MEDS: Lidocaine 2% (20 ml mdv) 20 ML Vial INFILT (09:12)
[2022-01-21] MEDS: predniSONE 20 MG Tablet 40 MG PO (10:31)
[2022-01-21] MEDS: TENOFOVIR DISOPROXIL FUMARATE 300 MG TABLET PO (10:32)
[2022-01-21] MEDS: Acetylcysteine (Mucomyst Oral) 20% SOLN 1200 MG PO (10:35)
[2022-01-21] MEDS: oxyCODONE 5 MG Tablet PO (11:38)
--- NOTE | 2022-01-21 13:08 | PCM.DC.SUM ---
Providers Date of Admission: 01/16/22 Date of Discharge: 01/21/22 Primary Care Physician: Dr. Roger Kirk MD Consultations 01/16/22 20:51 Consult: Gastroenterology Routine Consulting Provider: RachaelMaco Reason for Consult: Acute hepatitis EMERGENT Consult: No MD Notified: Yes Date Notified: 01/17/22 Time Notified: 08:15 Method of Notification: Text Reason For Visit: ACUTE HEPATITIS Diagnosis Discharge Diagnosis (1) Hepatitis: Status: Acute Code(s): K75.9 - Inflammatory liver disease, unspecified (2) Acute liver failure: Status: Acute Code(s): K72.00 - Acute and subacute hepatic failure without coma (3) Severe protein-calorie malnutrition: Status: Acute Code(s): E43 - Unspecified severe protein-calorie malnutrition (4) Autoimmune hepatitis: Status: Acute Code(s): K75.4 - Autoimmune hepatitis (5) Hypertension: Status: Chronic Code(s): I10 - Essential (primary) hypertension Qualifiers: Hypertension type: primary hypertension Qualified Code(s): I10 - Essential (primary) hypertension (6) Hepatitis B: Status: Acute Code(s): B19.10 - Unspecified viral hepatitis B without hepatic coma Medications at Discharge Home Medications divalproex 500 mg tablet,extended release 24 hr 1,000 mg PO QHS tab 07/03/21 sildenafil 100 mg tablet 100 mg PO DAILY PRN #20 tab 01/01/22 Trintellix 5 mg PO QHS 01/16/22 Vraylar 3 mg PO QHS 01/16/22 lisinopril 10 mg PO QHS 01/16/22 omeprazole 40 mg PO QHS 01/16/22 risperidone 2 mg PO QHS 01/16/22 prednisone 20 mg PO DAILY 30 Days #30 tab 01/21/22 tenofovir disoproxil fumarate 300 mg PO DAILY 30 Days #30 tab 01/21/22 Hospital Course Operations None Procedures None Summary of Care Provided Minutes Spent on Discharge: 40 Hospital Course: 51-year-old male with past medical history of anxiety/depression, marijuana abuse who comes in with persistent nausea and vomiting ongoing for 4 days associated with abdominal pain. His LFTs were elevated. His total bilirubin was 6.4, AST and ALP was above 2000, INR was 1.7. Ultrasound of the liver showed hepatomegaly, gallbladder wall thickening with pericholecystic fluid. CT scan of the abdomen and pelvis was also suspicious for acute otitis and acute acalculous cholecystitis. Patient was admitted to the [facility], managed conservatively, GI consulted. He was started empirically on antibiotics. Acute cholecystitis ruled out. Patient acute otitis panel came back positive for acute hep B. His anti-smooth muscle antibody was also positive suggestive of autoimmune hepatitis. Patient was started on steroids, 18 lymphoma. He had liver biopsy done on 01/21/22. He was discharged on tenofovir and 20 mg of prednisone. He will follow-up with GI within 2 weeks as well as his primary care doctor. On the day of discharge, patient was seen and examined. See progress note of the day. Physical Exam Narrative See progress note Friday Medical Records Data Medical Nutrition Assessment Dietitian: Malnutrition Criteria Met Start: 01/17/22 13:27 Freq: Status: Active Protocol: Document 01/17/22 13:27 (Rec: 01/17/22 13:27 [id number]) Nutrition Malnutrition Evidence of Malnutrition Exists Yes Malnutrition (severe): Acute Illness/Injury Evidenced By Suboptimal Energy Intake ( Severe),Weight Loss (Severe) Clinical Problem Acute Disease or Injury Related Malnutrition Etiology severe, acute malnutrition r/t inadequate energy intake d/t GI distress Signs/Symptoms as evidenced by unintentional reported wt loss of 10.5#/5.8% x 5 days; estimated PO intake meeting <50% of estimated energy needs > 5 days Status Active Problem Recommendation Dietitian Recommendations/Changes recommend advance diet as tolerated when medically indicated; continue ensure enlive 120mL 4x/day w/ medpass Weight / BMI Weight Weight: 76.9 kg Body Mass Index (BMI) 27.2 ABG / Lab / Microbiology Data Result Diagrams: 01/21/22 04:47 01/21/22 04:47 Laboratory: Laboratory Results - last 24 hr 01/21/22 04:47: WBC 11.1 H, RBC 4.32 L, Hgb 13.0, Hct 38.1 L, MCV 88.2, MCH 30.1, MCHC 34.1, RDW Std Deviation 60.8 H, RDW Coeff of Joseph 19.8 H, Plt Count 214, MPV 11.4, Immature Gran % (Auto) 4.900 H, Neut % (Auto) 53.1, Lymph % (Auto) 30.8, [place] % (Auto) 10.4 H, Eos % (Auto) 0.0, Baso % (Auto) 0.8, Absolute Neuts (auto) 5.9, Absolute Lymphs (auto) 3.42, Nucleated RBC % 0 01/21/22 04:47: PT 15.5 H, INR 1.3 01/21/22 04:47: Sodium 137, Potassium 3.9, Chloride 106, Carbon Dioxide 24.0, Anion Gap 7, BUN 15, Creatinine 0.86, Estim Creat Clear Calc 93.76, Est GFR (MDRD) Af Amer 122, Est GFR (MDRD) Non-Af 101, BUN/Creatinine Ratio 17.5, Glucose 115 H, Calcium 8.2 L Microbiology: Microbiology 01/20/22 03:38 Stool Stool Occult Blood (DANDRE) - Final Radiography Diagnostic Testing: Radiology Impression Biopsy CT 01/21/22 07:09 IMPRESSION: 1. CT directed core needle biopsy of the liver, using CT image guidance with image documentation as described. 2. Conscious Sedation protocol utilized with independent monitoring. Electronically Signed: Ignacio Casas MD at 10:52 EST , D/C Instructions Discharge Diet: No restrictions Meaningful Use Info Meaningful Use Diagnoses (Choose all that apply): None applicable Discharge Plan Admission Admit Date/Time: 01/16/22 20:01 Primary Reason for Your Visit: Acute hepatitis Attending Provider: Xenia Dwyer Primary Care Provider: Roger Kirk Consulting Providers: Maco Cano Instructions Patient Instructions: Biopsy Liver Dc Additional Instructions / Restrictions: Take note of your new medications. Continue to take your medications as prescribed. Follow-up with primary care doctor and with gastroenterology in the outpatient. Discharge Orders/Prescriptions Prescriptions: New tenofovir disoproxil fumarate 300 mg Tablet 300 mg PO DAILY 30 Days Qty: 30 RF: 0 prednisone 20 mg tablet 20 mg PO DAILY 30 Days Qty: 30 RF: 0 Continued divalproex 500 mg tablet extended release 24 hr 1,000 mg PO QHS RF: 0 Trintellix 5 mg tablet 5 mg PO QHS RF: 0 Vraylar 3 mg capsule 3 mg PO QHS RF: 0 omeprazole 40 mg capsule,delayed release(DR/EC) 40 mg PO QHS RF: 0 risperidone 2 mg tablet 2 mg PO QHS RF: 0 lisinopril 10 mg tablet 10 mg PO QHS RF: 0 sildenafil 100 mg tablet 100 mg PO DAILY PRN (Reason: sexual activity) Qty: 20 RF: 0 Referrals / Follow Up: Roger Kirk MD [Primary Care Provider] - Within 2 Weeks Maco Cano DO [STAFF PHYSICIAN] - Within 2 Weeks Disposition Disposition (needs filled in before D/C Order can be placed): Home, Self Care Charges/Coding Visit Charges Inpatient E&M: 09373 [facility] Hosp
[2022-01-21 13:20] LABS: AST(SGOT) 213 U/L (15-37); Alanine Aminotransfer ALT/SGPT 1315 U/L (16-61); Albumin, Serum 2.5 g/dL (3.2-5.0); Alkaline Phosphatase 157 U/L (45-117); Globulin 3.9 g/dL (2.2-4.2); Protein, Total 6.4 g/dL (6.4-8.2)
== END 2022-01-21 15:30 | disposition home or self-care (01) ==
LOC: ED 16:40 → MS3 20:14
PROVIDERS: Internal Medicine; Internal Medicine Gastroenterology; Admitting Provider Hospitalist; Emergency Provider Emergency Medicine; PCP Internal Medicine; Visit Provider Internal Medicine
DX: B18.1 Chronic viral hepatitis B without delta-agent (principal); K72.00 Acute and subacute hepatic failure without coma; E43 Unspecified severe protein-calorie malnutrition; K75.9 Inflammatory liver disease, unspecified; K76.0 Fatty (change of) liver, not elsewhere classified; F15.10 Other stimulant abuse, uncomplicated; K81.0 Acute cholecystitis; I10 Essential (primary) hypertension; F17.210 Nicotine dependence, cigarettes, uncomplicated; F41.9 Anxiety disorder, unspecified; K21.9 Gastro-esophageal reflux disease without esophagitis; M19.90 Unspecified osteoarthritis, unspecified site; F12.10 Cannabis abuse, uncomplicated; F32.A Depression, unspecified; G89.29 Other chronic pain; Z79.899 Other long term (current) drug therapy; Z68.27 Body mass index [BMI] 27.0-27.9, adult
CPT/HCPCS: 36415; 74177; 76705; 77012; 80048; 80053; 80074; 80076; 81001; 82248; 82274; 82525; 82550; 82728; 83516; 83605; 83615; 83690; 85025; 85610; 85652; 86140; 86225; 86235; 86703; 88307; 88313; 97802; 99156; 99283; 99406; J7030; J7050; Q9967; A4216; J2405

== ENCOUNTER 2022-02-06 15:32 | Outpatient (CLI) | payer MEDICAID, SELFPAY ==
[2022-02-06 15:58] LABS: Hematocrit 42.5 % (40-54); Hemoglobin 13.7 g/dL (13.0-16.5); Mean Corp Hgb Conc 32.2 g/dL (32-36); Mean Corpuscular Hgb 30.9 pg (27.0-32.0); Mean Corpuscular Volume 95.7 fL (80-94); Mean Platelet Vol. 10.3 fl (6.2-12.0); POSITIVE COUNT YES; POSITIVE MORPHOLOGY YES; Platelet Count 212 K/mm3 (150-450); RBC Distribution Width CV 19.8 % (11.6-14.6); RBC Distribution Width SD 69.7 fl (35.1-43.9); Red Blood Count 4.44 M/mm3 (4.6-6.2); White Blood Count 12.8 K/mm3 (4.4-11.0)
[2022-02-06 16:11] LABS: Differential Indicated MANUAL DIFF
[2022-02-06 16:25] LABS: Valproic Acid (Depakene) Level 27 ug/mL (50-100)
[2022-02-06 16:56] LABS: Lymphocyte 26 % (19-41); Monocyte 8 % (0-10); Neutrophil-Band 2 % (0-5); Neutrophil-Segmented 64 % (47-70); Platelet Estimate ADEQUATE (ADEQ); Red Cell Morphology NORM C+C NORMAL (NORM C&C); Total Cells Counted 100 (MANUAL DIFF)
[2022-02-06 16:59] LABS: Absolute Lymphocyte Count 3.33 X10^3/uL (0.83-4.51); Absolute Neutrophil Count 8.5 X10^3/uL (2.0-7.7)
[2022-02-06 17:09] LABS: ALB/GLOB Ratio 0.8 RATIO (0.9-2.4); AST(SGOT) 112 U/L (15-37); Alanine Aminotransfer ALT/SGPT 349 U/L (16-61); Albumin, Serum 3.3 g/dL (3.2-5.0); Alkaline Phosphatase 128 U/L (45-117); Anion Gap 5 (5-15); BUN 26 mg/dL (7-18); BUN/Creat Ratio 21.3 RATIO (10-20); Calcium,Total 8.5 mg/dL (8.5-10.1); Chloride 106 mmol/L (98-107); Creatinine, Serum 1.22 mg/dL (0.70-1.30); EST Glomerular Filtration Rate 67 mL/min (>60); Est Glom Filt Rate - Afr Amer 81 mL/min (>60); Glucose 165 mg/dL (74-106); Potassium 4.6 mmol/L (3.5-5.1); Protein, Total 7.3 g/dL (6.4-8.2); Sodium Level 139 mmol/L (136-145); Thyroid Stim Hormone (TSH) 1.71 uIU/mL (0.358-3.74)
[2022-02-08 13:00] LABS: Pathologist Review Reviewed
== END 2022-02-06 23:59 | disposition home or self-care (01) ==
LOC: LAB 15:34
PROVIDERS: PCP Internal Medicine; Visit Provider Nurse Practitioner Family
DX: Z79.899 Other long term (current) drug therapy (principal)
CPT/HCPCS: 36415; 80053; 80164; 82140; 84443; 85025

== ENCOUNTER 2022-04-02 05:20 | Day surgery (SDC) | payer MEDICAID, SELFPAY ==
[2022-04-02] VITALS (10 sets, daily range): BP systolic 103–127; BP diastolic 71–86; PULSE 74–94; RESP 16–18; TEMP 36.2–36.9; O2SAT 93–98; BMI 29.0
[2022-04-02] MEDS: Lactated Ringers 1,000 ML 15 ML IV (05:45)
--- NOTE | 2022-04-02 06:30 | EGD_PTH ---
PATIENT: KASSIDY SALAS LOC: EN U#:[id number] AGE/SX: 51/M ROOM: RE04/02/[address]: Dr. Maco Cano DO : 1970 BED: DIS: 04/02/2022 SPEC #: [id number] RECD: 04/02/22 16:18 STATUS: LIAM BRICENO #: [id number] CHRIS: 04/02/22 06:[address]: Maco Cano DEPT: SURGICAL PATHOLOGY RECD BY: Cheyenne Jorge ENTERED: 04/03/22 09:28 SP TYPE: EGD BIOPSY KAMILA DR: Dr. Roger Kirk MD Tissues: Esophagus, NOS Procedures: Special Stain Group II Surgery Specimen Level IV Alcian Blue/PAS (control) HEADER OPERATION: [place] [place] DIAGNOSIS: GERD, abdominal pain TISSUE SUBMITTED: Distal esophagus biopsy MICROSCOPIC DIAGNOSIS Distal esophagus, biopsy: Fragments of gastroesophageal mucosa with chronic inflammation. Intestinal metaplasia (goblet cell metaplasia) not identified. See comment. STEPHAN:quan 04/04/2022 COMMENT Alcian blue/PAS stain with matched control is used in the evaluation of the specimen. MICROSCOPIC DESCRIPTION Slides are reviewed. GROSS DESCRIPTION Received in fixative is one container labeled with the patient's name and designated distal esophagus biopsy. The specimen consists of two irregular fragments of light verduzco soft tissue that in aggregate measure 0.6 x 0.3 x 0.1 cm. The specimen is totally submitted in one cassette. / STEPHAN:quan 04/03/2022 TC:3 CPT: 63632, 31364
--- NOTE | 2022-04-02 06:41 | HP.PCM_ITS ---
History and Physical Date of Admission: 04/02/22 KASSIDY SALAS, is a 51 M who presents to the office today for hospital f/u hepatitis B and autoimmune hepatitis Kassidy became known to this clinic through [facility] hospitalization. He presented to [facility] ED 01.16.22 for evaluation of upper abdominal pain for several days with nausea and vomiting. Workup found liver enzymes indicative of hepatitis with inflammation seen on CT likely related to hepatitis rather than cholecystitis. Gastroenterology consulted 01.17.22 and started treatment of mucomyst and prednisone. He admitted to use of meth, amphetamines, cocaine and alcohol. 01.19.22 received diagnosis of acute hepatitis secondary to acute hepatitis B and acute liver failure positive smooth muscle ab possibly related to acute versus chronic autoimmune hepatitis; started on tenofovir 01.18.22. Liver biopsy performed 01.21.22 and discharged the same day. CT abd/pel 01.16.22 found liver to be of heterogeneous parenchyma; scattered diverticula throughout colon without inflammation; markedly thickened gallbladder wall with 9mm stone in neck; small subcentimeter renal hypodensities; trace free fluid in pelvis. US liver 01.17.22 found liver measurement 14.1 cm with normal echogenicity without mass/lesion. Gallbladder, normal distended with thickened wall and positive sonographic Cormier?s sign and pericholecystic fluid with possible stone in the neck. Remaining exam without remark. Stool occult blood 01.20.22 negative. Liver biopsy 01.21.22 finding acute and chronic hepatitis grade 2-3, Stage 1. Today Kassidy reports feeling a lot better than he had been. Had RUQ pain yesterday, none today. C/o LLQ pain x 2 yrs, intermittent, occurs when riding bike and if constipated. Has external hemorrhoid. Tends to be constipated. Early satiety that started about a week before hospitalization, persists but maybe better. He's eating small meals. Appetite is getting better. No nausea or vom iting. 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 He reports nexium was effective in the past. He tells me he has had no alcohol in 3 yrs. Smokes marijuana for stress relief. Dabbles in other drugs, but states he uses when others have them, doesn't buy them. Has a headache at crown and behind eyes, feels like the start of a migraine, started a week ago. Assoc with nasal congestion. ROS Const Constitutional: Positive for headache(s), weakness and weight change (wt gain ); No fatigue, fever(s), sleep problems, abnormal sleep pattern or change in appetite ENT ENT: Positive for nasal congestion, headache(s), difficulty swallowing and hoarseness; No sore throat Resp Respiratory: Positive for wheezing; No cough, hemoptysis or shortness of breath Cardio Cardiology: Positive for chest pain at rest; No generalized swelling Gastro GI: Positive for bloating, heartburn and difficulty swallowing; No abdominal pain, belching, change in bowel habits, change in stool character, coffee ground emesis, constipation, cramping, diarrhea, feeling full early, incontinent of stools, Vomiting blood/hematemesis, Blood in stool, loose stools, Black,tarry stools, nausea/dyspepsia, pain with swallowing or vomiting Genitourinary Male: Positive for urinary incontinence, urinary frequency and urinary urgency Musc Musculoskeletal: Positive for joint pain, back pain, joint swelling, muscle cramps, numbness, stiffness, tingling, Arthritis, restless legs and leg pain at night Skin Skin: Positive for dry skin; No itchy eyes or rash Neuro Neurology: Positive for weakness, headache(s), numbness, tingling and restless legs; No behavioral changes or confusion Psych Psychiatric: No abnormal sleep pattern, Positive for anxiety, No behavioral changes, No change in appetite, No confusion, Positive for depression, Positive for paranoia, Positive for Behavioral Problems, Positive for Compulsive Behavior, Positive for hyperactivity, Positive for inattentiveness and Positive for obsessions/compulsions Endo Endocrine: Positive for increased thirst/drinking, increased hunger, increased urine leakage and weight change (wt gain ); No cold intolerance, fatigue or heat intolerance Aller/Imm Allergy/Immunologic: Positive for wheezing; No food intolerance or itchy eyes Ruel/Lymp Hematologic/Lymphatic: No easy bleeding, easy bruising or enlarged lymph nodes Exam Const General: cooperative, comfortable, no acute distress and well developed Eyes Sclera: sclerae normal Chest Chest palpation & inspection: normal inspection of the chest Resp Effort & Inspection: normal respiratory effort Cardio Rate: regular rate Rhythm: regular rhythm GI Inspection: distended Auscultation: normal bowel sounds Palpation: soft and nontender Extrem General: no pedal edema Quality Reporting Tobacco Screening ([facility] 138) Smoking Status: Current every day smoker Assessment and Plan Assessment and Plan (1) Hepatitis B: Status: Acute (2) Autoimmune hepatitis: Status: Acute (3) GERD (gastroesophageal reflux disease): Status: Acute (4) LLQ abdominal pain: Status: Acute Plan: 51 yr old male with acute hepatitis B, autoimmune hepatitis, chronic acid reflux , chronic LLQ abd pain Case reviewed with Dr Cano Prednisone 20 mg daily is for one month then d/c Continue tenofovir 300 mg daily for hepatitis B Change from omeprazole to esomeprazole since the former isn't controlling his acid reflux and he had success with esomeprazole previously Close f/u in 3 wks, can get labs then including CBC, CMP, INR, lactate, LDH EGD and colonoscopy are scheduled for 03/26/22 to eval his GERD, eval for Gunderson's and malignancy, eval his chronic LLQ abd pain Plan Details Other Medications: New: esomeprazole magnesium (Nexium) 40 mg PO DAILY 30 caps 2RF Refilled: tenofovir disoproxil fumarate 300 mg PO DAILY 30 days 30 tabs 0RF Discontinued: omeprazole Discontinued Reason: Order Changed 40 mg PO QHS gerd I have re-examined the patient. There are no clinical changes since date of exam.
--- NOTE | 2022-04-02 06:58 | OP.CCLET_ITS ---
08/23/2022 Roger Kirk MD [address] [place] [address] [place] [address] Re : Upper GI endoscopy procedure for Rufino Mesa Dear Dr. Kirk This procedure was performed on Saturday, April 02, 2022. My impressions and recommendations are as follows: Impressions : - Z-line irregular, 39 cm from the incisors. Biopsied. - A large amount of food (residue) in the stomach. - Normal duodenal bulb. Recommendations : - Discharge patient to home. - Resume previous diet. - Continue present medications. - Await pathology results. My findings are described in the full procedure note, which is enclosed. If I can be of further assistance, please feel free to contact me at . Sincerely, Maco Cano, 04/02/2022 6:57:56 AM This report has been signed electronically.
--- NOTE | 2022-04-02 06:58 | OP.EGD_ITS ---
Patient Name: Rufino Mesa Procedure Date: 04/02/2022 6:28 AM Date of : 1970 Age: 51 Procedure: Upper GI endoscopy Indications: Epigastric abdominal pain, Abdominal pain in the left upper quadrant Providers: Maco Cano DO Referring MD: Roger Kirk MD Medicines: Monitored Anesthesia Care Patient Profile: This is a 51 year old male. Refer to note in patient chart for documentation of history and physical. Patient has symptoms of chronic epigastric abdominal pain. Complications: No immediate complications. Procedure: Pre-Anesthesia Assessment: - Prior to the procedure, a History and Physical was performed, and patient medications and allergies were reviewed. The risks and benefits of the procedure and the sedation options and risks were discussed with the patient. All questions were answered and informed consent was obtained. Patient identification and proposed procedure were verified by the physician in the pre-procedure area. Mental Status Examination: alert and oriented. Airway Examination: normal oropharyngeal airway and neck mobility. Respiratory Examination: clear to auscultation. CV Examination: normal. Prophylactic Antibiotics: The patient does not require prophylactic antibiotics. Prior Anticoagulants: The patient has taken no previous anticoagulant or antiplatelet agents. ASA Grade Assessment: II - A patient with mild systemic disease. After reviewing the risks and benefits, the patient was deemed in satisfactory condition to undergo the procedure. The anesthesia plan was to use moderate sedation / analgesia (conscious sedation). Immediately prior to administration of medications, the patient was re-assessed for adequacy to receive sedatives. The heart rate, respiratory rate, oxygen saturations, blood pressure, adequacy of pulmonary ventilation, and response to care were monitored throughout the procedure. The physical status of the patient was re-assessed after the procedure. After obtaining informed consent, the endoscope was passed under direct vision. Throughout the procedure, the patient's blood pressure, pulse, and oxygen saturations were monitored continuously. The gastroscope was introduced through the mouth, and advanced to the second part of duodenum. The upper GI endoscopy was accomplished without difficulty. The patient tolerated the procedure well. Scope In: 6:49:55 AM Scope Out: 6:53:20 AM Total Procedure Duration Time 0 hours 3 minutes 25 seconds Findings: The Z-line was irregular and was found 39 cm from the incisors. Biopsies were taken with a cold forceps for histology. Verification of patient identification for the specimen was done. Estimated blood loss was minimal. A large amount of food (residue) was found in the entire examined stomach. The duodenal bulb was normal. Impression: - Z-line irregular, 39 cm from the incisors. Biopsied. - A large amount of food (residue) in the stomach. - Normal duodenal bulb. Recommendation: - Discharge patient to home. - Resume previous diet. - Continue present medications. - Await pathology results. Procedure Code(s): --- Professional --- 81963, Esophagogastroduodenoscopy, flexible, transoral; with biopsy, single or multiple CPT copyright 2017 [employer]. All rights reserved. The codes documented in this report are preliminary and upon health care administrator review may be revised to meet current compliance requirements. Maco Cano DO 04/02/2022 6:57:56 AM This report has been signed electronically. Number of Addenda: 1 Note Initiated On: 04/02/2022 6:28 AM Addendum Number: 1 Addendum Date: 08/23/2022 6:25:20 AM MAC was used as sedation for this procedure. Maco Cano DO 08/23/2022 6:25:26 AM This report has been signed electronically.
== END 2022-04-02 07:57 | disposition home or self-care (01) ==
LOC: EN 05:21 → AC 05:22
PROVIDERS: PCP Internal Medicine; Referring Provider Internal Medicine; Visit Provider Internal Medicine Gastroenterology
PROC: 0DJD8ZZ Inspection of Lower Intestinal Tract, Via Natural or Artificial Opening Endoscopic (ICD-10-PCS; CPT 45378; principal; 2022-04-02 06:25)
DX: K20.90 Esophagitis, unspecified without bleeding (principal); B19.10 Unspecified viral hepatitis B without hepatic coma; I10 Essential (primary) hypertension; F17.200 Nicotine dependence, unspecified, uncomplicated; Z79.899 Other long term (current) drug therapy
CPT/HCPCS: 43239; 88305; 88313; J7120; J2405

== ENCOUNTER → 2022-04-15 | Outpatient (CLI) | payer MEDICAID, SELFPAY ==
--- NOTE | 2022-04-15 17:11 | MRI_ITS ---
EXAM: MR Lumbar Spine Without Intravenous Contrast CLINICAL INDICATION: 51 years old, Male; RADICULOPATHY, BILAT LEG PAIN TECHNIQUE: Multiplanar and multisequence MR images of the lumbar spine without intravenous contrast. This report was created using [employer] report [employer] technology. COMPARISON: None. FINDINGS: Vertebrae: Unremarkable. Vertebral body heights are preserved. Normal vertebral bodies and posterior elements. Normal alignment. No spondylolisthesis. There is preservation of the normal lumbar lordosis. Spinal cord: Unremarkable. Normal position and signal intensity of the conus medullaris. Soft tissues: Unremarkable. DISCS/SPINAL CANAL/NEURAL FORAMINA: L1-L2: Unremarkable. Normal disc height and morphology. Normal spinal canal and lateral recesses. Normal neuroforamina. L2-L3: Unremarkable. Normal disc height and morphology. Normal spinal canal and lateral recesses. Normal neuroforamina. L3-L4: Unremarkable. Normal disc height and morphology. Normal spinal canal and lateral recesses. Normal neuroforamina. L4-L5: Degenerative disc bulge at L4-L5 causing ventral effacement of the thecal sac but no spinal canal stenosis. Normal neuroforamina. L5-S1: Degenerative disc bulge at L5-S1 causing ventral effacement of the thecal sac but no spinal canal stenosis. Normal neuroforamina. MRI/Spine Lumbar (Routine) IMPRESSION: No acute findings in the lumbar spine. Electronically Signed: Frank Priest MD at 5:36 EDT ,
== END | disposition home or self-care (01) ==
LOC: MRI 17:00
PROVIDERS: PCP Internal Medicine; Visit Provider Anesthesiology Pain Medicine
DX: M54.16 Radiculopathy, lumbar region (principal); M79.604 Pain in right leg; M79.605 Pain in left leg
CPT/HCPCS: 72148

== ENCOUNTER → 2022-05-20 | Outpatient (CLI) | payer MEDICAID, SELFPAY ==
[2022-05-20 15:13] LABS: Absolute Lymphocyte Count 3.35 X10^3/uL (0.83-4.51); Absolute Neutrophil Count 3.4 X10^3/uL (2.0-7.7); Basophil# 0.13 X10^3/uL; Basophil% 1.7 % (0-1); Eosinophil# 0.16 X10^3/uL; Lymphocyte # 3.35 X10^3/ul (0.83-4.51); Lymphocyte % 42.7 % (19-41); Mean Corp Hgb Conc 31.8 g/dL (32-36); Mean Corpuscular Hgb 32.2 pg (27.0-32.0); Mean Corpuscular Volume 101.1 fL (80-94); Mean Platelet Vol. 9.8 fl (6.2-12.0); Monocyte# 0.56 X10^3/uL; Monocyte% 7.1 % (0-10); NRBC Flagged by Analyzer 0 % (0-5); Neutrophil # 3.38 X10^3/uL (2.7-7.7); Neutrophil % 43.1 % (47-70); Platelet Count 180 K/mm3 (150-450); RBC Distribution Width SD 47.9 fl (35.1-43.9); Red Blood Count 4.35 M/mm3 (4.6-6.2); White Blood Count 7.9 K/mm3 (4.4-11.0)
[2022-05-20 15:21] LABS: Prothrombin Time (Protime)PT. 12.8 SECONDS (11.7-14.9)
[2022-05-20 15:49] LABS: ALB/GLOB Ratio 0.9 RATIO (0.9-2.4); AST(SGOT) 20 U/L (15-37); Alanine Aminotransfer ALT/SGPT 27 U/L (16-61); Albumin, Serum 3.4 g/dL (3.2-5.0); Alkaline Phosphatase 58 U/L (45-117); Anion Gap 5 (5-15); BUN 18 mg/dL (7-18); BUN/Creat Ratio 17.8 RATIO (10-20); Calcium,Total 8.7 mg/dL (8.5-10.1); Chloride 108 mmol/L (98-107); Creatinine, Serum 1.01 mg/dL (0.70-1.30); EST Glomerular Filtration Rate 83 mL/min (>60); Est Glom Filt Rate - Afr Amer 101 mL/min (>60); Globulin 3.9 g/dL (2.2-4.2); Glucose 103 mg/dL (74-106); LDH 260 U/L (87-241); Potassium 3.6 mmol/L (3.5-5.1); Protein, Total 7.3 g/dL (6.4-8.2); Sodium Level 139 mmol/L (136-145)
[2022-05-20 16:29] LABS: Lactic Acid < 0.1 mmol/L (0.4-1.9)
== END | disposition home or self-care (01) ==
PROVIDERS: PCP Internal Medicine; Referring Provider Nurse Practitioner Adult Health; Visit Provider Nurse Practitioner Adult Health
DX: B19.10 Unspecified viral hepatitis B without hepatic coma (principal)
CPT/HCPCS: 36415; 80053; 83605; 83615; 85025; 85610

== ENCOUNTER 2023-06-25 07:01 | Emergency (ER) | payer BC, MEDICAID, SELFPAY ==
[2023-06-25 07:03] VITALS: BP 146/112; PULSE 85; RESP 16; TEMP 36.4; O2SAT 100; BMI 27.0
--- NOTE | 2023-06-25 07:13 | CT_ITS ---
INDICATION: pain, injury EXAMINATION: CT Spine Cervical W/O Contrast Injection TECHNIQUE: Helically acquired images were obtained of the cervical spine. 2D reformatted images were reviewed. A radiation dose optimization technique was used for this scan. IV Contrast dosage and agent: None. COMPARISON: Cervical spine CT from 03/28/2019 FINDINGS: VERTEBRAE: No fracture or traumatic subluxation. No suspicious osseous lesion identified. Adequate alignment. Preserved cervical lordosis and preserved vertebral body heights. DISCS and SPINAL CANAL: Minimal degenerative disc space narrowing at C4-5 and C5-6. No significant spinal canal stenosis. NECK SOFT TISSUES: No prevertebral soft tissue swelling. No other acute findings. LUNG APICES: Paraseptal pulmonary emphysematous changes noted. CT/Spine Cervical without Contras IMPRESSION: No evidence of acute cervical spinal injury. Electronically Signed: Rolo Hirsch MD at 7:55 EDT ,
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
[2023-06-25] MEDS: Acetaminophen 325 MG Tablet 650 MG PO (07:19)
--- NOTE | 2023-06-25 09:09 | NURSING ---
Patient is argumentative with staff and physicians, states pain not improved with Tylenol. Patient continues to yell out and curses at staff.
[2023-06-25] MEDS: tiZANidine HCl 2 MG Tablet 4 MG PO (09:50)
--- NOTE | 2023-06-25 09:53 | ED.RN ---
Patient states he wants to stay in room and rest he states he can't move. Patient medicated per order. Patient argumentative and defiant with staff. States he has nowhere to go. Again patient educated on discharge. Officer called to room.
== END 2023-06-25 10:05 | disposition home or self-care (01) ==
PROVIDERS: Emergency Provider Emergency Medicine; PCP Internal Medicine; Visit Provider Emergency Medicine
DX: S16.1XXA Strain of muscle, fascia and tendon at neck level, initial encounter (principal); I10 Essential (primary) hypertension; M54.9 Dorsalgia, unspecified; F17.210 Nicotine dependence, cigarettes, uncomplicated; Y04.8XXA Assault by other bodily force, initial encounter; G89.29 Other chronic pain; K21.9 Gastro-esophageal reflux disease without esophagitis
CPT/HCPCS: 72125; 99284; A4216

== ENCOUNTER → 2024-01-02 | Outpatient (CLI) | payer BC, MEDICAID, SELFPAY ==
--- NOTE | 2024-01-02 14:15 | RAD_ITS ---
INDICATION: PAIN IN RIGHT FOOT EXAMINATION/TECHNIQUE: X-RAY - RIGHT XR Foot 2 Views COMPARISON: None. FINDINGS: No acute fracture or malalignment. No blastic or lytic lesions. No degenerative changes are seen. The soft tissues are unremarkable. RAD/Foot 2 Views IMPRESSION: No acute radiographic abnormalities. Electronically Signed: Wero Ferreira MD at 0:01 EST ,
== END | disposition home or self-care (01) ==
PROVIDERS: PCP Nurse Practitioner Family; Referring Provider Nurse Practitioner Family; Visit Provider Nurse Practitioner Family
DX: M79.671 Pain in right foot (principal)
CPT/HCPCS: 73620

== ENCOUNTER 2024-01-22 09:46 | Emergency (ER) | payer BC, MEDICAID, SELFPAY ==
[2024-01-22 09:49] VITALS: BP 134/90; PULSE 90; RESP 22; TEMP 37.1; O2SAT 98; BMI 24.3
--- NOTE | 2024-01-22 10:16 | EKG12_ITS ---
Test Reason : Blood Pressure : / mmHG Vent. Rate : 068 BPM Atrial Rate : 068 BPM P-R Int : 114 ms QRS Dur : 082 ms QT Int : 388 ms P-R-T Axes : 031 010 043 degrees QTc Int : 412 ms Normal sinus rhythm Normal ECG Confirmed by ALIN DURANT, YONATHAN ([id number]), tape editor GONZALEZ CARDENAS ([id number]) on 01/26/2024 9:29:25 AM Referred By: Confirmed By:TANO OGDEN MD
--- NOTE | 2024-01-22 10:18 | EDS_ITS ---
HPI HPI - URI History of Present Illness Chief Complaint: Cough Informant: patient Onset/Context/Timing Onset: Weeks (1) Context: Gradual Onset Timing: Continuous Quality: Pressure, heaviness Location: Chest Worsened by: - (Nothing) Relieved by: - (Nothing) Associated Symptoms Associated Symptoms: Positive for Nasal Congestion, Headache, Sinus Pressure, Nausea, Shortness of Breath, Chest Pain and Productive Cough; Negative for Myalgias, Vomiting or Diarrhea Narrative Narrative: Patient presents with cough, chest pressure, and heaviness that has been getting worse over the past week. Patient states it is gradually getting worse. Patient states his symptoms have been constant. Patient states that his grover was recently diagnosed with congestive heart failure and admitted to the [facility]. Patient states he has similar symptoms as she does. Patient admits to some subjective fevers and chills. Patient admits to nausea but denies any vomiting or diarrhea. Patient states he is coughing up some clear sputum. Patient admits to some pain in his chest with coughing. Patient also admits to headache and sinus pressure. ROS ROS ED Constitutional Constitutional ED: Reports chills and fever(s) Eyes Eyes: Reports blurry vision; Denies diplopia ENT ENT ED: Reports rhinorrhea; Denies sore throat Cardiovascular Cardiovascular: Reports chest pain; Denies palpitations Respiratory/Chest Respiratory/Chest: Reports cough and dyspnea Gastrointestinal Gastrointestinal: Reports nausea; Denies vomiting Genitourinary Genitourinary ED: Reports urinary frequency; Denies dysuria or hematuria Musculoskeletal Musculoskeletal: Reports neck pain; Denies back pain Integumentary Denies abscess or rash Neurologic Neurologic: Reports headache(s); Denies weakness Allergic/Immunologic Allergic/Immunologic ED: Denies mouth swelling or urticaria [facility] Medical History Alcohol abuse Ambulates with cane Anxiety Anxiety and depression Arthritis Back problem Bilateral carpal tunnel syndrome Cervical radiculopathy Chronic back pain Chronic neck pain Deafness in left ear Depression Edentulous Erectile dysfunction Gastric reflux GERD (gastroesophageal reflux disease) History of fracture of left ankle History of GI bleed History of psychiatric care History of suicide attempt Hypertension IBS (irritable bowel syndrome) Left ear hearing loss Manic, depressive Marijuana abuse Methamphetamine abuse Migraines Nasal congestion Neuropathy Restless legs Smoker Substance abuse Tobacco abuse Upper GI bleed URI (upper respiratory infection) Home Medications divalproex 500 mg tablet,extended release 24 hr (Depakote ER) 1,000 mg PO QHS depression 07/03/21 [History Last Taken Unknown] cariprazine 3 mg capsule (Vraylar) 3 mg PO QHS mental health 01/16/22 [History Last Taken Unknown] lisinopril 10 mg tablet 10 mg PO QHS hypertension 01/16/22 [History Last Taken Unknown] vortioxetine 5 mg tablet (Trintellix) 5 mg PO QHS mental health 01/16/22 [History Last Taken Unknown] dexlansoprazole 60 mg capsule,biphase delayed release (Dexilant) 60 mg PO DAILY #30 caps 03/21/22 [Rx Last Taken Unknown] sildenafil 100 mg tablet 100 mg PO DAILY PRN sexual activity #30 tabs 04/02/22 [Rx Last Taken Unknown] tizanidine 4 mg tablet 4 mg PO Q8H PRN muscle spasticity #14 tabs 06/25/23 [Rx Last Taken Unknown] Allergy/AdvReac Type Severity Reaction Status Date / Time ibuprofen [From Motrin] AdvReac Upset Verified 01/22/24 09:48 Stomach zolpidem tartrate AdvReac NOSE BLEED Verified 01/22/24 09:48 [From Ambien] Family History Other Heart disease Melanoma Surgical History History of hernia repair History of liver biopsy Social History Smoking Status: Current every day smoker tobacco type: cigarettes alcohol intake: former substance use type: former substance user EXAM Physical Exam Const Vital Signs: 01/22/24 09:49 Temperature 98.7 F Temperature Source Temporal Pulse Rate 90 Respiratory Rate 22 H Blood Pressure 134/90 H Blood Pressure Mean 104 Pulse Ox 98 Oxygen Delivery Method Room Air Positive well nourished and well developed General Appearance ED: well developed and NAD HEENT Reports moist mucous membranes Throat: posterior oropharynx abnormal Positive for cobblestoning and erythema; Negative for exudates Neck supple, no meningeal signs and no JVD Resp normal respiratory effort Auscultation: wheezes scattered wheezes Cardio Rate: regular rate Rhythm: regular rhythm GI non-tender and non-distended Palpation: soft Extremity normal to inspection and full ROM Neuro oriented x3, CN's II-XII intact bilaterally and no sensory deficits noted Sensorium / Orientation: alert Motor Exam: strength 5/5 throughout Psych mental status grossly normal MDM MDM MDM Narrative Medical decision making narrative: Differential diagnosis includes cardiac dysrhythmia, cardiac ischemia, pneumonia, bronchitis, and viral illness. EKG will be obtained to assess for cardiac dysrhythmia and cardiac ischemia. CBC will be obtained to assess for leukocytosis and anemia. Basic metabolic profile will be obtained to assess for electrolyte abnormality and renal function. Chest x-ray will be obtained to assess for pneumonia. COVID-19, influenza, and RSV PCR will be obtained to assess for viral infection. Lab Data Attestation: I reviewed the patient's lab results. Lab results narrative: CBC was reviewed and was essentially within normal limits. Basic metabolic profile was reviewed and was within normal limits. COVID-19 PCR was reviewed and was negative. Influenza PCR was reviewed and was negative for influenza A but positive for influenza B. RSV PCR was reviewed and was negative. Radiography Chest X-Ray - ED: 2 View, Read by ED Physician, Read by Radiologist and No Acute Disease Diagnostic Testing: PA and lateral chest x-ray was obtained. There are 2 views. On my independent interpretation, lung corona are clear. There is normal cardiac silhouette. Bony thorax is normal. There is no acute process noted. Radiologist also interpreted the x-ray and agrees. EKG Initial EKG: Attestation: I personally reviewed and interpreted this EKG as follows: Interpretation: Sinus Rhythm (68) and No Acute Injury Pattern Comments: EKG was obtained. On my independent interpretation, it showed a normal sinus rhythm with a rate of 68. ME interval, QRS interval, and QTc intervals were all normal. Eckley was normal. There are no acute ST or T wave changes. Prior EKG tracings: available for review Prior: Unchanged (11/13/2020) Treatment and Re-Evaluation Narrative: Patient was advised of his findings. Patient was advised that he is outside the window for Tamiflu. Patient was instructed to continue drinking plenty of fluids. Patient was instructed to take Tylenol or ibuprofen as needed for pain. Patient was instructed to return if worse in any way. Patient understood and was agreeable with the plan. All questions were answered. Discharge Plan Triage Chief Complaint: Cough ED Provider: Nikolas Simpson Dx/Rx/DC Orders Clinical Impression: Influenza B, Hypertension Instructions: ED Influenza (Adult) Prescriptions: No Action divalproex [Depakote ER] 500 mg tablet extended release 24 hr 1,000 mg PO QHS Trintellix 5 mg tablet 5 mg PO QHS Patient Comments: Take 1 Tablet By Oral Route 1 time per day at the same time each day Vraylar 3 mg capsule 3 mg PO QHS Patient Comments: Take 1 Capsule By Oral Route 1 at bedtime lisinopril 10 mg tablet 10 mg PO QHS tizanidine 4 mg tablet 4 mg PO Q8H PRN (Reason: muscle spasticity) Qty: 14 0RF dexlansoprazole [Dexilant] 60 mg capsule,biphase delayed releas 60 mg PO DAILY Qty: 30 1RF sildenafil 100 mg tablet 100 mg PO DAILY PRN (Reason: sexual activity) Qty: 30 0RF Rx Instructions: administer 30 minutes to 4 hours before activity Primary Care Provider: Rolo Vazquez Referrals: Rolo Vazquez, CHILD PROTECTION SPECIALIST-[facility] [Primary Care Provider] - 5-7 Days Disposition Disposition: Home, Self Care
[2024-01-22] MEDS: Ipratropium/Albuterol Sulfate 3 ML AMPUL.NEB INHALATION (10:26)
[2024-01-22 10:27] VITALS: PULSE 64; RESP 18
--- NOTE | 2024-01-22 10:40 | RAD_ITS ---
STUDY: X-RAY CHEST REASON FOR EXAM: Male, 53 years old. Hemoptysis. Body. TECHNIQUE: PA and lateral views of the chest. COMPARISON: None. FINDINGS: Hyperinflation. The lungs are clear. There is no demonstrated pleural abnormality. Normal size heart. Normal mediastinum and alex. Normal visualized pulmonary arteries. Normal visualized aortic arch and descending thoracic aorta. Normal visualized thoracic spine. Normal visualized ribs, clavicles, and shoulders. There is no demonstrated abnormality of the visualized soft tissue structures of the upper abdomen. RAD/Chest PA and Lateral IMPRESSION: Hyperinflation. The lungs are clear. Electronically Signed: Ignacio Casas MD at 11:17 EST ,
[2024-01-22 10:46] LABS: Absolute Lymphocyte Count 2.74 X10^3/uL (0.83-4.51); Absolute Neutrophil Count 3.6 X10^3/uL (2.0-7.7); Basophil# 0.03 X10^3/uL; Basophil% 0.4 % (0-1); Eosinophil# 0.13 X10^3/uL; Eosinophils% 1.9 % (0-5); Hematocrit 39.1 % (40-54); Hemoglobin 13.1 g/dL (13.0-16.5); Lymphocyte # 2.74 X10^3/ul (0.83-4.51); Lymphocyte % 39.3 % (19-41); Mean Corp Hgb Conc 33.5 g/dL (32-36); Mean Corpuscular Hgb 31.6 pg (27.0-32.0); Mean Corpuscular Volume 94.4 fL (80-94); Mean Platelet Vol. 9.8 fl (6.2-12.0); Monocyte# 0.45 X10^3/uL; Monocyte% 6.5 % (0-10); NRBC Flagged by Analyzer 0 % (0-5); Neutrophil # 3.55 X10^3/uL (2.7-7.7); Neutrophil % 50.9 % (47-70); Platelet Count 229 K/mm3 (150-450); RBC Distribution Width CV 14.3 % (11.6-14.6); Red Blood Count 4.14 M/mm3 (4.6-6.2)
[2024-01-22 10:56] LABS: Anion Gap 3 (5-15); BUN 20 mg/dL (7-18); Calcium,Total 8.5 mg/dL (8.5-10.1); Chloride 113 mmol/L (98-107); Creatinine, Serum 0.83 mg/dL (0.70-1.30); EST Glomerular Filtration Rate 103 mL/min (>60); Est Glom Filt Rate - Afr Amer 125 mL/min (>60); Estimated Creatinine Clearance 95.02 ml/min; Glucose 86 mg/dL (74-106); Potassium 4.2 mmol/L (3.5-5.1); Sodium Level 140 mmol/L (136-145)
[2024-01-22 11:18] VITALS: PULSE 58; RESP 18; O2SAT 95
--- OUTSIDE RECORDS SUMMARY | 2024-01-22 11:41 | XMS RPT_ITS | CCD ---
Author Name Unknown Address [address] [place] [address] Organization [employer] Allergies Allergy Classification Reported Allergen(s) Allergy Type Date of Onset Reaction(s) Facility (1 source) zolpidem; Translations: [ZOLPIDEM TARTRATE] Drug Allergy 03-25-2012 [facility] Repository Encounters Encounter Date Encounter Type Care Provider Facility Start: 09-01-2017 Ambulatory [facility] Summary Purpose Family History No Family History Records Found Advance Directives No Advanced Directives Records Found Additional Source Comments (unrecognized sect ion and content) No Status Records Found INFORMATION SOURCE (unrecogn ized section and content) FOR RECORDS PERTAINING TO PATIENTS WHO ARE OR HAVE BEEN ENROLLED IN A CHEMICAL DEPENDENCY/SUBSTANCEABUSE PROGRAM, SOME INFORMATION MAY BE OMITTED. This clinical summary was aggregated from multiple sources. Caution should be exercised in using it in the provision of clinical care. This summary normalizes information from multiple sources, and as a consequence, information in this document may materially change the coding, format and clinical context of patient data. In addition, data may be omitted in some cases. CLINICAL DECISIONS SHOULD BE BASED ON THE PRIMARY CLINICAL RECORDS. [employer] provides no warranty or guarantee of the accuracy or completeness of information in this document.
[2024-01-22 12:05] VITALS: BP 113/79; PULSE 58; RESP 18; TEMP 36.8; O2SAT 95
== END 2024-01-22 12:12 | disposition home or self-care (01) ==
PROVIDERS: Emergency Provider Emergency Medicine; PCP Nurse Practitioner Family; Visit Provider Emergency Medicine
DX: J10.1 Influenza due to other identified influenza virus with other respiratory manifestations (principal); I11.0 Hypertensive heart disease with heart failure; I50.9 Heart failure, unspecified; R51.9 Headache, unspecified; R11.0 Nausea; F17.210 Nicotine dependence, cigarettes, uncomplicated; K21.9 Gastro-esophageal reflux disease without esophagitis
CPT/HCPCS: 71046; 80048; 85025; 87631; 93005; 94640; 99283; A4216

== ENCOUNTER → 2024-01-29 | Outpatient (CLI) | payer MEDICAID, SELFPAY ==
--- NOTE | 2024-01-29 11:43 | RAD_ITS ---
INDICATION: Acute bronchitis, unspecified EXAMINATION/TECHNIQUE: X-RAY - XR Chest 2 Views COMPARISON: January 22, 2024 FINDINGS: LINES/DEVICES: None. LUNGS: No consolidation, edema or effusion. No pneumothorax. MEDIASTINUM AND CARDIOVASCULAR STRUCTURES: Cardiac silhouette not enlarged. Central airways and mediastinal contour are unremarkable. BONES AND SOFT TISSUES: Unremarkable. RAD/Chest PA and Lateral IMPRESSION: No radiographic evidence of acute cardiopulmonary disease. Electronically Signed: Britt Phleps MD at 8:15 EST ,
== END | disposition home or self-care (01) ==
LOC: RAD 11:38
PROVIDERS: PCP Nurse Practitioner Family; Referring Provider Nurse Practitioner Family; Visit Provider Nurse Practitioner Family
DX: J20.9 Acute bronchitis, unspecified (principal)
CPT/HCPCS: 71046

== ENCOUNTER → 2025-09-21 | Outpatient (CLI) | payer MEDICAID, SELFPAY ==
[2025-09-21 17:42] LABS: AST(SGOT) 28 U/L (<=37); Alanine Aminotransfer ALT/SGPT 28 U/L (<=46); Albumin, Serum 4.5 g/dL (3.5-5.0); Alkaline Phosphatase 80 U/L (40-129); Anion Gap 10 (5-15); BUN 19 mg/dL (4-19); BUN/Creat Ratio 17.8 RATIO (10-20); Calcium,Total 9.9 mg/dL (7.6-11.0); Carbon Dioxide 25.1 mmol/L (21.0-32.0); Chloride 104 mmol/L (98-108); Ferritin 22 ng/mL (37-417); Globulin 2.9 g/dL (2.2-4.2); Glucose 114 mg/dL (70-99); Iron 57 ug/dL (65-175); Iron Binding Capacity,Total 383 ug/dL (250-450); Iron Binding Capacity,Unsat 326 ug/dL (228-428); Potassium 4.8 mmol/L (3.3-5.1); Vitamin D,25 Hydroxy 20.0 ng/mL (30-100)
[2025-09-22 13:38] LABS: Hematocrit 44.8 % (40-54); Hemoglobin 14.3 g/dL (13.0-16.5); Mean Corp Hgb Conc 31.9 g/dL (32-36); Mean Corpuscular Volume 94.3 fL (80-94); Mean Platelet Vol. 11.3 fl (6.2-12.0); NRBC Flagged by Analyzer 0 % (0-5); Platelet Count 353 K/mm3 (150-450); RBC Distribution Width CV 14.3 % (11.6-14.6); RBC Distribution Width SD 49.9 fl (35.1-43.9); Red Blood Count 4.75 M/mm3 (4.6-6.2); White Blood Count 11.2 K/mm3 (4.4-11.0)
[2025-09-22 13:53] LABS: Immature Granulocytes Count 0.210 X10^3/uL (0.0-0.0)
== END | disposition home or self-care (01) ==
LOC: VSLAB 14:58
PROVIDERS: PCP Nurse Practitioner Family; Referring Provider Nurse Practitioner Family; Visit Provider Nurse Practitioner Family
DX: F43.10 Post-traumatic stress disorder, unspecified (principal); F33.2 Major depressive disorder, recurrent severe without psychotic features
CPT/HCPCS: 36415; 80053; 82306; 82728; 83036; 83540; 83550; 84443; 85025

== ENCOUNTER → 2025-10-06 | Outpatient (CLI) | payer MEDICAID, SELFPAY ==
--- NOTE | 2025-10-06 09:16 | RAD_ITS ---
PROCEDURE: SHOULDER MIN 2 VIEWS 10/06/2025 REASON FOR EXAM: PAIN TECHNIQUE: Procedure Code: RADSH Modality: DX Procedure: SHOULDER MIN 2 VIEWS Laterality: Right COMPARISON: None FINDINGS: Bones: There is no fracture or dislocation of the right shoulder. Joints: Joint spaces are well preserved. Soft tissues: Soft tissues are unremarkable. Other: Visualized right ribs and lung are clear. RAD/Shoulder min 2 Views IMPRESSION: Unremarkable right shoulder. Reading Location: [id number]
== END | disposition home or self-care (01) ==
LOC: RAD 09:11
DX: M25.511 Pain in right shoulder (principal)
CPT/HCPCS: 73030